=== PATIENT | male | born 1945 ===

== ENCOUNTER 2016-09-23 02:31 | Emergency (ER) | payer SELFPAY ==
--- NOTE | 2016-09-23 03:25 | C.PDOC ---
History Of Present Illness 71 y/o male presents to ED with c/o left sided frontal headache associated with left eye pain, redness, itching and tearing for 3 days. Patient also reports associated photophobia. Patient also complains of nasal congestion. Denies fever , neck pain, nausea, vomiting, visual changes, extremity weakness or numbness, or other complaints. Patient notes he took OTC ibuprofen with no relief; also reports using old steroid eye drops with no relief. Time Seen by Provider: 09/23/16 02:56 Chief Complaint (Nursing): Headache History Per: Patient History/Exam Limitations: no limitations Onset/Duration Of Symptoms: Days Current Symptoms Are (Timing): Still Present Quality: "Pain" Preceeding Symptoms: None Associated Symptoms: Photophobia. denies: Nausea, Vomiting Recent travel outside of the [place]: No Past Medical History Reviewed: Historical Data, Nursing Documentation, Vital Signs Vital Signs: Last Vital Signs Temp 98.1 F 09/23/16 04:07 Pulse 73 09/23/16 04:07 Resp 14 09/23/16 04:07 BP 131/85 09/23/16 04:07 Pulse Ox 97 09/23/16 04:07 - Medical History PMH: Arthritis, Asthma, CAD, Depression, Diabetes, Gastrointestinal Ulcer, HTN, Hyperlipidemia, Seizures Family History: States: Unknown Family Hx - Social History Hx Tobacco Use: No Hx Alcohol Use: No Hx Substance Use: No - Immunization History Hx Tetanus Toxoid Vaccination: Yes Hx Influenza Vaccination: No Hx Pneumococcal Vaccination: Yes Review Of Systems Except As Marked, All Systems Reviewed And Found Negative. Constitutional: Negative for: Fever, Chills Eyes: Positive for: Pain (left), Redness (left). Negative for: Vision Change ENT: Positive for: Nose Congestion. Negative for: Throat Pain Cardiovascular: Negative for: Chest Pain Respiratory: Negative for: Cough, Shortness of Breath Gastrointestinal: Negative for: Nausea, Vomiting Skin: Negative for: Rash Neurological: Positive for: Headache. Negative for: Weakness, Numbness, Dizziness Physical Exam - Physical Exam Appears: Non-toxic, No Acute Distress Skin: Warm, Dry Head: Atraumatic, Normacephalic, Tenderness (frontal sinus tenderness L > R ) Eye(s): bilateral: PERRL, EOMI, left: Other (left conjunctival injection greater to nasal area, mild crusting at lids ) Ear(s): Bilateral: Normal Nose: Other (enlarged nasal turbinates with mucous ) Oral Mucosa: Moist Neck: Normal, No Midline Cervical Tenderness, No Paracervical Tenderness, Supple Chest: Symmetrical Cardiovascular: Rhythm Regular Respiratory: Normal Breath Sounds, No Rales, No Rhonchi, No Wheezing Back: Normal Inspection Extremity: Normal ROM, Capillary Refill (< 2 sec. ) Neurological/Psych: Oriented x3, Normal Speech, Normal Cognition, Normal Cranial Nerves, Normal Motor, Normal Sensation, Normal Reflexes Gait: Steady ED Course And Treatment O2 Sat by Pulse Oximetry: 97 (RA) Pulse Ox Interpretation: Normal - CT Scan/US CT Head Other Rad Studies (CT/US): Read By Radiologist, Radiology Report Reviewed CT/US Interpretation: FINDINGS: Brain: No significant white matter disease. Age -related cerebral cortical volume loss. No. hemorrhage. No edema. Ventricles: Unremarkable. No ventriculomegaly. Bones/joints: A nonacute right nasal bone fracture. No acute fracture. Soft tissues: Unremarkable. Sinuses: Unremarkable as visualized. No acute sinusitis. Mastoid air cells: Unremarkable as visualized. No mastoid effusion. IMPRESSION: No acute intracranial findings. Progress Note: Treated with Ultram. Head CT ordered and reviewed. CT scan negative for acute intracranial abnormality. Reevaluation Time: 05:17 Reassessment Condition: Improved (Pt reports improved pain after IM toradol. CT head results d/w pt. Pt will be referred to Ophthalmology in AM- advised to call for appointment) Disposition - Disposition Referrals: Casey Edmondson MD [Staff Provider] - Disposition: HOME/ ROUTINE Disposition Time: 05:13 Condition: STABLE Additional Instructions: Take meds and use drops as directed Follow up with PMD Return to ER if worse Prescriptions: Ibuprofen [Motrin] 600 mg PO Q6H #30 tab Dexamethasone/Tobramycin [Tobradex 0.1%-0.3% 2.5 Ml] 1 drop OP TID #1 bottle Cetirizine HCl [Zyrtec] 10 mg PO DAILY #20 capsule - Clinical Impression Clinical Impression: Headache, Pain in eye - PA / TELEVISION REPAIRMAN / Resident Statement MD/DO has reviewed & agrees with the documentation as recorded. - Scribe Statement The provider has reviewed the documentation as recorded by the Edward Hilton Provider Scribe Attestation: All medical record entries made by the Scribe were at my direction and personally dictated by me. I have reviewed the chart and agree that the record accurately reflects my personal performance of the history, physical exam, medical decision making, and the department course for this patient. I have also personally directed, reviewed, and agree with the discharge instructions and disposition.
[2016-09-23 05:48] VITALS: BP 123/81; PULSE 64; RESP 21; TEMP 98; O2SAT 98
--- NOTE | 2016-09-23 07:52 | CT ---
PROCEDURE: CT HEAD WITHOUT CONTRAST. HISTORY: headache COMPARISON: 10/03/2014 TECHNIQUE: Axial computed tomography images were obtained through the head/brain without intravenous contrast. Radiation dose: Total exam DLP = 897 mGy-cm. This CT exam was performed using one or more of the following dose reduction techniques: Automated exposure control, adjustment of the mA and/or kV according to patient size, and/or use of iterative reconstruction technique. FINDINGS: HEMORRHAGE: No intracranial hemorrhage. BRAIN: No mass effect or edema. Scattered focal lucencies in the subcortical and periventricular white matter suggestive for chronic microvascular ischemic change. VENTRICLES: Unremarkable. No hydrocephalus. CALVARIUM: Right nasal bone fracture. PARANASAL SINUSES: Unremarkable as visualized. No significant inflammatory changes. MASTOID AIR CELLS: Unremarkable as visualized. No inflammatory changes. OTHER FINDINGS: None. IMPRESSION: Chronic microvascular ischemic change. Right nasal bone fracture. Likely chronic. Clinical correlation. If focal neurologic deficit or headache persists, consider further evaluation with MRI. These findings were preliminarily reported at 3:46 a.m. on 09/23/[address] Lady Nicholas from [facility].
== END 2016-09-23 05:49 | disposition home or self-care (01) ==
LOC: C.ER 02:31
DX: R51 Headache (principal); H57.12 Ocular pain, left eye
CPT/HCPCS: 70450; 96372; 99285; J1885

== ENCOUNTER 2017-11-17 01:35 | Emergency (ER) | payer SELFPAY ==
--- NOTE | 2017-11-17 01:54 | C.PDOC ---
History Of Present Illness 72 year old male presents to the ED for evaluation of right side chest wall pain. Patient states he fell and landed on a railing injuring his ribs associated with pain on deep inspirations. Patient is speaking in complete sentences, remembers the event. Patient denies LOC, headache, head injury, blurry vision, nausea, vomit. Time Seen by Provider: 11/17/17 01:54 Chief Complaint (Nursing): Chest Pain History Per: Patient History/Exam Limitations: no limitations Onset/Duration Of Symptoms: Days Current Symptoms Are (Timing): Still Present Quality: "Pain" Modifying Factors: None Exacerbating Factors: Deep Breathing Recent travel outside of the [place]: No Additional History Per: Patient Past Medical History Reviewed: Historical Data, Nursing Documentation, Vital Signs Vital Signs: Last Vital Signs Temp 97.7 F 11/17/17 04:30 Pulse 62 11/17/17 04:30 Resp 18 11/17/17 04:30 BP 100/65 11/17/17 04:30 Pulse Ox 96 11/17/17 04:30 - Medical History PMH: Arthritis, Asthma, CAD, Depression, Diabetes, Gastrointestinal Ulcer, HTN, Hyperlipidemia, Seizures Surgical History: No Surg Hx Family History: States: Unknown Family Hx - Social History Hx Tobacco Use: No Hx Alcohol Use: No Hx Substance Use: No - Immunization History Hx Tetanus Toxoid Vaccination: Yes Hx Influenza Vaccination: No Hx Pneumococcal Vaccination: Yes Review Of Systems Constitutional: Negative for: Fever, Chills Cardiovascular: Positive for: Chest Pain. Negative for: Palpitations Respiratory: Negative for: Shortness of Breath Gastrointestinal: Negative for: Nausea, Vomiting Musculoskeletal: Negative for: Back Pain Skin: Negative for: Rash Neurological: Negative for: Weakness, Numbness Physical Exam - Physical Exam Appears: Non-toxic, No Acute Distress Skin: Warm, Dry Head: Normacephalic Eye(s): bilateral: Normal Inspection Oral Mucosa: Moist Neck: Supple Chest: Symmetrical, Tenderness (right sided on palpation. no crepitus), No Ecchymosis (no evidence) Cardiovascular: Rhythm Regular Respiratory: No Rales, No Rhonchi, No Wheezing Gastrointestinal/Abdominal: Soft, No Tenderness, No Guarding, No Rebound Back: Normal Inspection Extremity: No Tenderness, No Swelling Extremity: Bilateral: Atraumatic, Normal Color And Temperature, Normal ROM Neurological/Psych: Oriented x3, Normal Speech Gait: Steady ED Course And Treatment - Laboratory Results Result Diagrams: 11/17/17 02:18 11/17/17 02:18 O2 Sat by Pulse Oximetry: 96 (ON RA) Pulse Ox Interpretation: Normal - CT Scan/US CT chest Other Rad Studies (CT/US): Read By Radiologist, Radiology Report Reviewed CT/US Interpretation: FINDINGS: Lungs: Infiltrate in posterior lungs. Pleural space: Unremarkable. No pneumothorax. No significant effusion. Heart: Unremarkable. No cardiomegaly. No significant pericardial effusion. Bones/ joints: Right anterior fifth and sixth rib fractures. No dislocation. Soft tissues: Unremarkable. Vasculature: Unremarkable. No thoracic aortic aneurysm. Lymph nodes: Unremarkable. No enlarged lymph nodes. IMPRESSION: 1. Infiltrate in posterior lungs. 2. Right anterior fifth and sixth rib fractures. Thank you for allowing us to participate in the care of your patient. Dictated and Authenticated by: Naresh Del Rosario MD. 11/17/2017 3:47 AM Eastern Time ([place] & [place]) Progress Note: Plan: - CT chest. - Labs. - CXR. - Morphine 4 mg IVP. - Zofran 4mg IVP. - UA Reevaluation Time: 04:35 Reassessment Condition: Improved Disposition Counseled Patient/Family Regarding: Studies Performed, Diagnosis, Need For Followup, Rx Given - Disposition Referrals: [facility] [Outside] [facility] [Outside] Disposition: HOME/ ROUTINE Disposition Time: 01:54 Condition: FAIR Prescriptions: Albuterol HFA [Ventolin HFA 90 mcg/actuation (8 g)] 2 puff IH [id number] #1 puff Azithromycin [Zithromax Tri-Juliocesar] 500 mg PO DAILY #3 tablet Polyethylene Glycol 3350 [Miralax] 17 gm PO DAILY #270 ml traMADol [Ultram] 50 mg PO TID PRN #15 tab PRN Reason: Pain, Severe (8-10) Instructions: Rib Fracture (DC) Forms: [employer] (Kinyarwanda) - Clinical Impression Clinical Impression: Fall, Fracture, ribs - Scribe Statement The provider has reviewed the documentation as recorded by the Scribe Nate García All medical record entries made by the Scribe were at my direction and personally dictated by me. I have reviewed the chart and agree that the record accurately reflects my personal performance of the history, physical exam, medical decision making, and the department course for this patient. I have also personally directed, reviewed, and agree with the discharge instructions and disposition.
[2017-11-17] MEDS ORDERED: Morphine 4 MG/ML VIAL IV STA (02:08)
[2017-11-17] MEDS ORDERED: Morphine 4 MG/ML VIAL ONE ×2 (02:19→03:26)
[2017-11-17 02:22] LABS: BASO # 0.1 K/uL (0.0-0.2); BASO % 1.3 % (0.0-2.0); EOS # 0.6 K/uL (0.0-0.7); EOS % 8.7 % (0.0-4.0); HEMOGLOBIN 12.5 g/dL (12.0-18.0); LYMPH # 2.8 K/uL (1.0-4.3); LYMPH % 40.6 % (20.0-40.0); MEAN CELL VOLUME 88.4 fL (80.0-94.0); MEAN CORPUSCULAR HEMOGLOBIN 30.9 pg (27.0-31.0); MEAN PLATELET VOLUME 7.3 fL (7.2-11.7); MONO # 0.7 K/uL (0.0-0.8); MONO % 9.5 % (0.0-10.0); NEUT # 2.7 K/uL (1.8-7.0); NEUT % 39.9 % (50.0-75.0); RBC 4.04 Mil/uL (4.40-5.90); RED CELL DISTRIBUTION WIDTH 13.1 % (11.5-14.5); WHITE BLOOD COUNT 6.8 K/uL (4.8-10.8)
[2017-11-17 02:37] LABS: ALB/GLOB RATIO 1.7 (1.0-2.1); ALBUMIN 4.1 g/dL (3.5-5.0); ALT/SGPT 40 U/L (21-72); AST/SGOT 30 U/L (17-59); BLOOD UREA NITROGEN 13 mg/dL (9-20); CALCIUM 7.8 mg/dl (8.6-10.4); GFR AFRICAN-AMERICAN > 60; GFR NON-AFRICAN AMERICAN > 60
[2017-11-17 05:57] VITALS: BP 111/77; PULSE 67; RESP 20; TEMP 97; O2SAT 97
--- NOTE | 2017-11-17 09:04 | CT ---
CT chest History: Follow-up. Right rib pain. Comparison: None available. Technique: Axial computed tomographic images of the chest were performed without intravenous contrast. Subsequently, sagittal and coronal reformatted images were obtained. This CT exam was performed using one or more of the following dose reduction techniques: Automated exposure control, adjustment of the mA and/or kV according to patient size, and/or use of iterative reconstruction technique. Findings: Fracture deformities of the right anterior 5th and 6th ribs. Right lung: Apical pleural thickening. 6 millimeter nodular focus noted within the inferior aspect of the right upper lobe on series 3, image 44, near the fissure. Consolidative changes noted at the posterior aspect of the right lower lobe which may represent infiltrate and or atelectasis. Left lung: Apical pleural thickening. Nodular consolidative changes at the inferior aspect of the left upper lobe near the lingula as well as the posterior left lower lobe which may represent infiltrate or atelectasis. Clinical correlation. Trachea thru central airways are patent. No significant axillary adenopathy. Heterogeneity of the thyroid. Question low-attenuation foci in the right thyroid lobe measuring 6.8 millimeters. This may be better evaluated with thyroid ultrasound. Calcification at the aortic knob. Coronary calcifications. No pleural or pericardial effusion. Fatty infiltration of the liver. Impression: 1. Right anterior 5th and 6th rib fractures. 2. 6 millimeter nodular focus noted within the inferior aspect of the right upper lobe of the lung on series 3, image 44, near the fissure. Consolidative changes noted at the posterior aspect of the right lower lobe which may represent infiltrate and or atelectasis. 3. Nodular consolidative changes at the inferior aspect of the left upper lobe of the lung near the lingula as well as the posterior left lower lobe which may represent infiltrate or atelectasis. Clinical correlation. Additional findings as above. These findings were preliminarily reported at 3:47 a.m. on 11/17/[address] Naresh Del Rosario from [facility].
== END 2017-11-17 06:01 | disposition home or self-care (01) ==
LOC: C.ER 01:35
DX: S22.41XA Multiple fractures of ribs, right side, initial encounter for closed fracture (principal); W19.XXXA Unspecified fall, initial encounter
CPT/HCPCS: 71250; 80053; 85025; 96374; 96375; 96376; 99285; J2270; J2405

== ENCOUNTER 2018-06-04 04:32 | Emergency (ER) | payer MEDICARE, OTHER ==
[2018-06-04] MEDS ORDERED: Sodium Chloride 0.9% 1,000 ML IV ONE (05:04)
--- NOTE | 2018-06-04 05:05 | C.PDOC ---
History Of Present Illness 72 year old male presents to the ER with a complaint of chest discomfort for the past few days associated with an episode of vomiting yesterday. Patient states he lives alone and nobody takes care of him. Denies cough. Chief Complaint (Nursing): Chest Pain History Per: Patient History/Exam Limitations: no limitations Onset/Duration Of Symptoms: Days Current Symptoms Are (Timing): Still Present Modifying Factors: None Exacerbating Factors: None Alleviating Factors: None Recent travel outside of the [place]: No Past Medical History Reviewed: Historical Data, Nursing Documentation, Vital Signs Vital Signs: Last Vital Signs Temp 97.8 F 06/04/18 04:51 Pulse 68 06/04/18 04:51 Resp 16 06/04/18 04:51 BP 116/72 06/04/18 04:51 Pulse Ox 97 06/04/18 04:51 - Medical History PMH: Arthritis, Asthma, CAD, Depression, Gastrointestinal Ulcer, Hyperlipidemia Denies: Diabetes, Hepatitis, HIV, HTN, Seizures, Sexually Transmitted Disease Family History: States: Unknown Family Hx - Social History Hx Tobacco Use: No Hx Alcohol Use: No Hx Substance Use: No - Immunization History Hx Tetanus Toxoid Vaccination: Yes Hx Influenza Vaccination: No Hx Pneumococcal Vaccination: Yes Review Of Systems Constitutional: Negative for: Fever, Chills Cardiovascular: Positive for: Chest Pain. Negative for: Palpitations Respiratory: Negative for: Cough, Shortness of Breath Gastrointestinal: Positive for: Vomiting. Negative for: Nausea Neurological: Negative for: Weakness, Numbness Physical Exam - Physical Exam Appears: Non-toxic, No Acute Distress, Other (Awake, alert, conscious) Skin: Normal Color, Warm, Dry Head: Atraumatic, Normacephalic Eye(s): bilateral: Normal Inspection Oral Mucosa: Moist Neck: Normal, Supple Chest: Symmetrical, No Tenderness Cardiovascular: Rhythm Regular Respiratory: Normal Breath Sounds, No Rales, No Rhonchi, No Wheezing Gastrointestinal/Abdominal: Soft, No Tenderness Extremity: Normal ROM (x4) Neurological/Psych: Oriented x3, Normal Speech ED Course And Treatment - Laboratory Results Result Diagrams: 06/04/18 05:50 06/04/18 05:50 ECG: Interpreted By Me, Viewed By Me ECG Rhythm: Sinus Rhythm ECG Interpretation: Normal, No Acute Changes Interpretation Of ECG: NSR, normal tracings. Rate From EC O2 Sat by Pulse Oximetry: 97 (Room air) Pulse Ox Interpretation: Normal - Radiology CXR: Interpreted by Me, Viewed By Me CXR Interpretation: Yes: No Acute Disease, Other (normal chest film). No: Infiltrates Progress Note: EKG, blood work, and CXR ordered. IV fluids administered. Disposition Counseled Patient/Family Regarding: Diagnosis - Disposition Referrals: [facility] [Outside] Disposition: HOME/ ROUTINE Disposition Time: 06:52 Condition: STABLE Prescriptions: Naproxen 375 mg PO TIDPC #20 tablet Forms: [employer] (Kiswahili) - POA Present On Arrival: None - Clinical Impression Clinical Impression: Chest discomfort - Scribe Statement The provider has reviewed the documentation as recorded by the Scribe Casey Antonio All medical record entries made by the Scribe were at my direction and personally dictated by me. I have reviewed the chart and agree that the record accurately reflects my personal performance of the history, physical exam, medical decision making, and the department course for this patient. I have also personally directed, reviewed, and agree with the discharge instructions and disposition.
[2018-06-04 05:57] LABS: BASO # 0.1 K/uL (0.0-0.2); BASO % 0.9 % (0.0-2.0); EOS # 0.2 K/uL (0.0-0.7); EOS % 2.4 % (0.0-4.0); HEMOGLOBIN 13.5 g/dL (12.0-18.0); LYMPH # 2.7 K/uL (1.0-4.3); LYMPH % 28.8 % (20.0-40.0); MEAN CELL VOLUME 89.1 fL (80.0-94.0); MEAN CORPUSCULAR HEMOGLOBIN 30.2 pg (27.0-31.0); MEAN CORPUSCULAR HGB CONC 33.9 g/dL (33.0-37.0); MEAN PLATELET VOLUME 7.3 fL (7.2-11.7); MONO # 0.9 K/uL (0.0-0.8); NEUT # 5.5 K/uL (1.8-7.0); NEUT % 57.9 % (50.0-75.0); RBC 4.48 Mil/uL (4.40-5.90); RED CELL DISTRIBUTION WIDTH 13.2 % (11.5-14.5); WHITE BLOOD COUNT 9.4 K/uL (4.8-10.8)
[2018-06-04 06:15] LABS: ALB/GLOB RATIO 1.3 (1.0-2.1); ALT/SGPT 24 U/L (21-72); AST/SGOT 19 U/L (17-59); BLOOD UREA NITROGEN 7 mg/dL (9-20); CALCIUM 8.5 mg/dl (8.6-10.4); GFR NON-AFRICAN AMERICAN > 60
[2018-06-04] MEDS ORDERED: Naproxen 275 mg Tab PO STA (06:51)
[2018-06-04] MEDS ORDERED: Naproxen 275 mg Tab PO ONE (06:53)
[2018-06-04 07:02] VITALS: BP 102/68; PULSE 80; RESP 14; TEMP 98.3; O2SAT 99
--- NOTE | 2018-06-04 08:28 | RAD ---
Date of service: 06/04/2018 HISTORY: chest pain COMPARISON: 07/03/2016 chest x-ray. CT chest report November 17 2017 TECHNIQUE: Chest PA and lateral FINDINGS: LUNGS: Improved inspiration since prior exam. No consolidation or pulmonary venous congestion currently noted. PLEURA: No significant pleural effusion identified. No pneumothorax apparent. Trace biapical pleural thickening-similar CARDIOVASCULAR: There is absence of aortic atherosclerotic calcification on x-ray. Normal cardiac size. No significant appearing pulmonary venous congestion. OSSEOUS STRUCTURES: Prior CT report referenced anterior rib fracture deformities-these are not appreciated on chest x-ray. Thoracic spondylosis. Mild cervical spondylosis. VISUALIZED UPPER ABDOMEN: Normal. OTHER FINDINGS: None. IMPRESSION: No interval pathology noted. Prior pulmonary venous congestion and other pathology is appear resolved/cleared. Other findings as above.
[2018-06-04] MEDS ORDERED: Naproxen 275 mg Tab PO SCH (10:00)
--- NOTE | 2018-06-04 14:50 | CARD ---
APPROVED REPORT Date of service: 06/04/2018 EKG Measurement Heart [id number] <Conclusion> Normal sinus rhythm Normal ECG
== END 2018-06-04 07:02 | disposition home or self-care (01) ==
LOC: C.ER 04:32
DX: R07.89 Other chest pain (principal); E78.5 Hyperlipidemia, unspecified; I25.10 Atherosclerotic heart disease of native coronary artery without angina pectoris
CPT/HCPCS: 71046; 80053; 84484; 85025; 85378; 93005; 99284; J7030

== ENCOUNTER 2018-07-25 02:29 | Emergency (ER) | payer OTHER ==
[2018-07-25] MEDS ORDERED: Sodium Chloride 0.9% 1,000 ML IV ONE (03:30)
--- NOTE | 2018-07-25 03:30 | C.PDOC ---
History Of Present Illness 72 year old male presents to the ED c/o sharp stabbing mid epigastric abdominal pain. Patient reports his pain radiates towards his testicles associated with some nausea. Patient rates his pain at 7/10, states he feels like a ball is stuck in his abdomen. Patient denies fever, chills, vomit, diarrhea, dysuria, hematuria, injury, fall, trauma. Time Seen by Provider: 07/25/18 03:30 Chief Complaint (Nursing): Abdominal Pain History Per: Patient History/Exam Limitations: no limitations Onset/Duration Of Symptoms: Days Current Symptoms Are (Timing): Still Present Severity: Moderate Pain Scale Rating Of: 7 Location Of Pain/Discomfort: Epigastric Radiation Of Pain To:: Other Quality Of Discomfort: Sharp, Stabbing Associated Symptoms: Nausea. denies: Vomiting, Diarrhea, Loss Of Appetite, Urinary Symptoms Recent travel outside of the [place]: No Additional History Per: Patient Past Medical History Reviewed: Historical Data, Nursing Documentation, Vital Signs Vital Signs: Last Vital Signs Temp 98.2 F 07/25/18 02:44 Pulse 73 07/25/18 02:44 Resp 18 07/25/18 02:44 BP 128/80 07/25/18 02:44 Pulse Ox 99 07/25/18 02:44 - Medical History PMH: Arthritis, Asthma, CAD, Depression, Gastrointestinal Ulcer, Hyperlipidemia Denies: Diabetes, Hepatitis, HIV, HTN, Seizures, Sexually Transmitted Disease Surgical History: No Surg Hx Family History: States: Unknown Family Hx - Social History Hx Tobacco Use: No Hx Alcohol Use: No Hx Substance Use: No - Immunization History Hx Tetanus Toxoid Vaccination: Yes Hx Influenza Vaccination: No Hx Pneumococcal Vaccination: Yes Review Of Systems Constitutional: Negative for: Fever, Chills Cardiovascular: Negative for: Chest Pain Respiratory: Negative for: Shortness of Breath Gastrointestinal: Positive for: Nausea, Abdominal Pain. Negative for: Vomiting Genitourinary: Positive for: Scrotal Pain. Negative for: Dysuria, Hematuria Skin: Negative for: Rash Neurological: Negative for: Weakness, Headache Physical Exam - Physical Exam Appears: Non-toxic, In Acute Distress Skin: Warm, Dry Head: Normacephalic Eye(s): bilateral: Normal Inspection Neck: Supple Chest: Symmetrical Cardiovascular: Rhythm Regular Respiratory: No Rales, No Rhonchi, No Wheezing Gastrointestinal/Abdominal: Soft, Tenderness (mid epigastric), No Guarding, No Rebound Back: No CVA Tenderness Male Genital: No Testicular Tenderness, No Testicular Swelling, Inguinal Ten derness, Inguinal Swelling (left inguinal hernia somewhat reducible ), No Circumcised Extremity: Normal ROM Extremity: Bilateral: Atraumatic, Normal Color And Temperature, Normal ROM Pulses: Left Dorsalis Pedis: Normal, Right Dorsalis Pedis: Normal Neurological/Psych: Oriented x3, Normal Speech, Normal Cognition Gait: Steady ED Course And Treatment - Laboratory Results Result Diagrams: 07/25/18 03:55 07/25/18 03:55 ECG: Interpreted By Me, Viewed By Me ECG Rhythm: Sinus Rhythm (69), Nonspecific Changes O2 Sat by Pulse Oximetry: 99 (ON RA) Pulse Ox Interpretation: Normal - CT Scan/US CT abd/pelvis Other Rad Studies (CT/US): Read By Radiologist, Radiology Report Reviewed CT/US Interpretation: CT SCAN OF THE ABDOMEN AND PELVIS WITH CONTRAST. CLINICAL HISTORY: Abdominal pain. COMPARISON: 04/16/2016. TECHNIQUE: Multiple axial and coronal CT images were obtained through the abdomen and pelvis after administration of intravenous contrast material. COMMENTS: Bilateral basilar hypoventilatory pulmonary changes. Uncomplicated colonic diverticulosis. Moderate amount of fecal residue in the large bowels. Moderate partial small bowel obstruction. Transition zone in the left lower quadrant. No evidence of bowel perforation or pneumatosis intestinalis. Left inguinal hernia containing nonincarcerated segment of the sigmoid colon. Mild amount of free pelvic fluid. The liver is of uniform attenuation without mass or defect. There is no intra or extrahepatic biliary ductal dilatation. The spleen is normal. The gallbladder is within normal limits. The pancreas is of normal contour and attenuation characteristics. There is no evidence of adrenal mass. Both kidneys demonstrate prompt and equal nephrograms. The kidneys are normal in size, shape and configuration. There is no evidence of renal or ureteral mass. No renal or ureteral calculi are identified. There is no hydroureter or hydronephrosis. No evidence for appendicitis. There is no evidence of intrinsic or extrinsic bladder mass. Images of the lung bases show no evidence of pleural or parenchymal mass. There are no pleural effusions. The bony structures are free of lytic or blastic lesions. IMPRESSION: Bilateral basilar hypoventilatory pulmonary changes. Uncomplicated colonic diverticulosis. Moderate amount of fecal residue in the large bowels. Moderate partial small bowel obstruction. Transition zone in the left lower quadrant. No evidence of bowel perforation or pneumatosis intestinalis. Left inguinal hernia containing nonincarcerated segment of the sigmoid colon. Mild amount of free pelvic fluid. Thank you for your kind referral of this patient. . Electronically signed on Jul 25, 2018 5:43:19 AM EST by: Sammy Steel M.D., Certified by ABR, MSK, Neuroradiology Progress Note: Plan: - CT abd/pelvis. - EKG. - Labs. - Morphine 2 mg IVP. - Protonix 40 mg IVP. - IV fluids. - Zofran 4 mg IVP. - UA Reevaluation Time: 06:14 Reassessment Condition: Improved Disposition Counseled Patient/Family Regarding: Studies Performed, Diagnosis, Need For Followup, Rx Given - Disposition Referrals: [facility] [Outside] [facility] [Outside] Disposition: HOME/ ROUTINE Disposition Time: 03:30 Condition: FAIR Additional Instructions: Por favor regrese si los sntomas recurren. Prescriptions: Naproxen [Naprosyn] 1 tab PO BID PRN #25 tab PRN Reason: Pain Polyethylene Glycol 3350 [Miralax] 17 gm PO DAILY #270 ml Instructions: Acute Abdomen (Belly Pain), Adult (DC), Constipation, Adult (DC), Groin Hernia (DC) Forms: [employer] (Mohawk) Print Language: STATELESS - Clinical Impression Clinical Impression: Abdominal pain, Constipation, Inguinal hernia - Scribe Statement The provider has reviewed the documentation as recorded by the Scribe Nate García All medical record entries made by the Scribe were at my direction and personally dictated by me. I have reviewed the chart and agree that the record accurately reflects my personal performance of the history, physical exam, medical decision making, and the department course for this patient. I have also personally directed, reviewed, and agree with the discharge instructions and disposition.
[2018-07-25] MEDS ORDERED: Sodium Chloride 0.9% 1,000 ML ONE (03:40)
[2018-07-25 04:01] LABS: BASO # 0.1 K/uL (0.0-0.2); BASO % 0.5 % (0.0-2.0); EOS # 0.2 K/uL (0.0-0.7); EOS % 1.6 % (0.0-4.0); HEMOGLOBIN 13.9 g/dL (12.0-18.0); LYMPH # 1.4 K/uL (1.0-4.3); LYMPH % 14.6 % (20.0-40.0); MEAN CELL VOLUME 89.1 fL (80.0-94.0); MEAN CORPUSCULAR HEMOGLOBIN 30.3 pg (27.0-31.0); MEAN PLATELET VOLUME 7.4 fL (7.2-11.7); MONO # 0.6 K/uL (0.0-0.8); MONO % 6.3 % (0.0-10.0); NEUT # 7.7 K/uL (1.8-7.0); RBC 4.57 Mil/uL (4.40-5.90); RED CELL DISTRIBUTION WIDTH 14.1 % (11.5-14.5); URINE BILIRUBIN NEGATIVE (NEGATIVE); URINE BLOOD 2+ (NEGATIVE); URINE CLARITY Clear (Clear); URINE COLOR Yellow (YELLOW); URINE GLUCOSE (UA) NORMAL (Normal); URINE LEUKOCYTE ESTERASE NEG Leu/uL (Negative); URINE PROTEIN NEGATIVE (NEGATIVE); URINE UROBILINOGEN NORMAL mg/dL (0.2-1.0)
[2018-07-25 04:06] LABS: PROTHROMBIN TIME 11.1 SECONDS (9.7-12.2)
[2018-07-25 04:15] LABS: ALB/GLOB RATIO 1.5 (1.0-2.1); ALBUMIN 4.4 g/dL (3.5-5.0); ALT/SGPT 24 U/L (21-72); AST/SGOT 27 U/L (17-59); BLOOD UREA NITROGEN 9 mg/dL (9-20); CALCIUM 8.9 mg/dl (8.6-10.4); GFR NON-AFRICAN AMERICAN > 60; LIPASE 95 U/L (23-300)
[2018-07-25] MEDS ORDERED: Iodixanol 320 MG/ML 100 ML BOTTLE IV ONE (04:53)
[2018-07-25 06:30] VITALS: BP 116/75; PULSE 60; RESP 18; TEMP 97.8; O2SAT 97
--- NOTE | 2018-07-25 18:07 | CT ---
Date of service: 07/25/2018 PROCEDURE: CT Abdomen and Pelvis with contrast HISTORY: abd pain COMPARISON: 11/17/2017 TECHNIQUE: Contrast dose: 100 mL Visipaque 320 Radiation dose: Total exam DLP = 855.09 mGy-cm. This CT exam was performed using one or more of the following dose reduction techniques: Automated exposure control, adjustment of the mA and/or kV according to patient size, and/or use of iterative reconstruction technique. FINDINGS: LOWER THORAX: Bilateral lower lobe dependent atelectasis. LIVER: Unremarkable. No gross lesion or ductal dilatation. GALLBLADDER AND BILE DUCTS: Unremarkable. PANCREAS: Unremarkable. No gross lesion or ductal dilatation. SPLEEN: Unremarkable. ADRENALS: Unremarkable. No mass. KIDNEYS AND URETERS: Unremarkable. No hydronephrosis. No solid mass. VASCULATURE: Unremarkable. No aortic aneurysm. No aortic atherosclerotic calcification or mural plaque present. BOWEL: Mechanical small-bowel obstruction. Point of obstruction is not definitely identified. There are collapsed loops of distal ileum identified in the right abdomen. There is mural enhancement and mural thickening of loops of what is likely jejunum in the left lower quadrant of the abdomen, along the anterior abdominal wall. Nonspecific. There is some stranding of the surrounding mesenteric fat. Possible regional enteritis. It appears likely that this accounts for the obstruction though it is not definitely demonstrated. There is a left inguinal hernia containing descending colon without evidence of obstruction at this point. APPENDIX: Normal appendix. PERITONEUM: Unremarkable. No free fluid. No free air. LYMPH NODES: Unremarkable. No enlarged lymph nodes. BLADDER: Unremarkable. REPRODUCTIVE: Normal prostate BONES: No acute fracture. OTHER FINDINGS: None. IMPRESSION: Mechanical small-bowel obstruction. Likely related to regional enteritis identified in the left lower quadrant of the abdomen along the anterior abdominal wall. Abnormal small bowel loops with mural thickening and enhancement are identified in the left lower quadrant of the abdomen. There is also a left inguinal hernia containing nonobstructed descending colon. No other significant abnormality is identified. The preliminary findings for this examination were reported by [facility] at 5:43 a.m. on 07/25/2018. There is concurrence of this report with the preliminary findings. Please note that the additional finding of regional enteritis was not described in the preliminary report of this examination.
--- NOTE | 2018-07-28 19:46 | CARD ---
APPROVED REPORT Date of service: 07/25/2018 EKG Measurement Heart [id number] <Conclusion> Normal sinus rhythm Normal ECG
== END 2018-07-25 06:42 | disposition home or self-care (01) ==
LOC: C.ER 02:29
DX: K40.90 Unilateral inguinal hernia, without obstruction or gangrene, not specified as recurrent (principal); K59.00 Constipation, unspecified; R10.9 Unspecified abdominal pain; I25.10 Atherosclerotic heart disease of native coronary artery without angina pectoris; E78.5 Hyperlipidemia, unspecified
CPT/HCPCS: 74177; 80053; 81001; 83690; 85025; 85610; 85730; 93005; 96361; 96374; 96375; 99285; C9113; J2270; J2405; J7030; Q9967

== ENCOUNTER 2018-07-29 16:05 | Inpatient (IN) | payer MEDICAID, OTHER ==
[2018-07-29 16:20] VITALS: BMI 25.0
[2018-07-29] MEDS ORDERED: Iohexol 240 (50 ml) PO STA (17:00)
[2018-07-29 17:22] LABS: BASO # 0.1 K/uL (0.0-0.2); BASO % 0.8 % (0.0-2.0); EOS # 0.9 K/uL (0.0-0.7); EOS % 10.8 % (0.0-4.0); HEMOGLOBIN 13.1 g/dL (12.0-18.0); LYMPH # 2.2 K/uL (1.0-4.3); LYMPH % 27.9 % (20.0-40.0); MEAN CELL VOLUME 88.8 fL (80.0-94.0); MEAN CORPUSCULAR HEMOGLOBIN 29.6 pg (27.0-31.0); MEAN CORPUSCULAR HGB CONC 33.3 g/dL (33.0-37.0); MEAN PLATELET VOLUME 7.1 fL (7.2-11.7); MONO # 0.7 K/uL (0.0-0.8); MONO % 8.7 % (0.0-10.0); NEUT # 4.1 K/uL (1.8-7.0); NEUT % 51.8 % (50.0-75.0); RBC 4.44 Mil/uL (4.40-5.90); WHITE BLOOD COUNT 7.9 K/uL (4.8-10.8)
[2018-07-29] MEDS ORDERED: Iohexol 240 (50 ml) ONE (17:39)
[2018-07-29 17:41] LABS: ALB/GLOB RATIO 1.4 (1.0-2.1); ALBUMIN 3.8 g/dL (3.5-5.0); ALT/SGPT 19 U/L (21-72); AST/SGOT 20 U/L (17-59); BLOOD UREA NITROGEN 8 mg/dL (9-20); CALCIUM 8.3 mg/dl (8.6-10.4); GFR NON-AFRICAN AMERICAN > 60; LIPASE 106 U/L (23-300)
[2018-07-29 17:48] LABS: URINE BILIRUBIN NEGATIVE (NEGATIVE); URINE BLOOD 1+ (NEGATIVE); URINE CLARITY Clear (Clear); URINE COLOR Straw (YELLOW); URINE GLUCOSE (UA) NORMAL (Normal); URINE LEUKOCYTE ESTERASE NEG Leu/uL (Negative); URINE PROTEIN NEGATIVE (NEGATIVE); URINE UROBILINOGEN NORMAL mg/dL (0.2-1.0)
--- NOTE | 2018-07-29 17:53 | C.PDOC ---
History Of Present Illness 72 y/o male presents to the ER complaining of sudden onset of sharp stabbing epigastric and upper abdominal pain which began 1 hour [employer]. Patient states he had associated nausea and he vomited profusely. Patient reports that the pain somewhat subsided after he vomited. He notes that he was evaluated for similar symptoms in [facility] last week. At the time, he had negative labs and a CT scan. The CT Scan showed left sided partially incarcerated inguinal hernia, moderate partial bowel obstruction, and significant amount of colonic stool. He was prescribed Miralax, he has been taking the medication in the morning on a daily basis.Denies having fever,chills, CP,SOB, dysuria, and hematuria. Time Seen by Provider: 07/29/18 16:46 Chief Complaint (Nursing): Abdominal Pain History Per: Patient History/Exam Limitations: no limitations Onset/Duration Of Symptoms: Hrs Current Symptoms Are (Timing): Still Present Severity: Moderate Past Medical History Reviewed: Historical Data, Nursing Documentation, Vital Signs Vital Signs: Last Vital Signs Temp 97.8 F 07/29/18 16:20 Pulse 74 07/29/18 16:20 Resp 18 07/29/18 16:20 BP 125/80 07/29/18 16:20 Pulse Ox 97 07/29/18 16:20 - Medical History PMH: Arthritis, Asthma, CAD, Depression, Gastrointestinal Ulcer, Hyperlipidemia Denies: Diabetes, Hepatitis, HIV, HTN, Seizures, Sexually Transmitted Disease Other Surgeries: Hx of surgeries Family History: States: No Known Family Hx - Social History Hx Tobacco Use: No Hx Alcohol Use: No Hx Substance Use: No - Immunization History Hx Tetanus Toxoid Vaccination: Yes Hx Influenza Vaccination: No Hx Pneumococcal Vaccination: Yes Review Of Systems Constitutional: Negative for: Fever, Chills Cardiovascular: Negative for: Chest Pain Respiratory: Negative for: Shortness of Breath Gastrointestinal: Positive for: Nausea, Vomiting, Abdominal Pain. Negative for: Diarrhea Genitourinary: Negative for: Dysuria, Hematuria Physical Exam - Physical Exam Appears: Non-toxic, No Acute Distress Skin: Normal Color, Warm, Dry Head: Atraumatic, Normacephalic Eye(s): bilateral: Normal Inspection Nose: Normal Oral Mucosa: Moist Neck: Supple Chest: Symmetrical Cardiovascular: Rhythm Regular Respiratory: Normal Breath Sounds, No Rales, No Rhonchi, No Wheezing Gastrointestinal/Abdominal: Soft, Tenderness (epigastric and periumbilical tenderness), No Guarding, No Rebound Neurological/Psych: Oriented x3, Normal Speech ED Course And Treatment - Laboratory Results Result Diagrams: 07/29/18 17:18 07/29/18 17:18 Lab Results: Total Bilirubin 0.3 mg/dL (0.2-1.3) 07/29/18 17:18 AST 20 U/L (17-59) 07/29/18 17:18 ALT 19 U/L (21-72) L D 07/29/18 17:18 Alkaline Phosphatase 74 U/L (38-126) 07/29/18 17:18 Total Protein 6.6 g/dL (6.3-8.3) 07/29/18 17:18 Albumin 3.8 g/dL (3.5-5.0) 07/29/18 17:18 Globulin 2.8 gm/dL (2.2-3.9) 07/29/18 17:18 Albumin/Globulin Ratio 1.4 (1.0-2.1) 07/29/18 17:18 Lipase 106 U/L (23-300) 07/29/18 17:18 Lab Interpretation: No Acute Changes O2 Sat by Pulse Oximetry: 97 (RA) Pulse Ox Interpretation: Normal - CT Scan/US CT ABD/PEL Other Rad Studies (CT/US): Read By Radiologist, Radiology Report Reviewed CT/US Interpretation: EXAM: CT Abdomen and Pelvis with IV contrast. CLINICAL HISTORY: EJ UMBILICAL PAIN. TECHNIQUE: Axial computed tomography images of the abdomen and pelvis with intravenous contrast. 0.00 mGy-cm. CONTRAST:. With; OMNI 350 100MLS. COMPARISON: Previous study 07/25/2018. FINDINGS: LUNG BASES: The lung bases appear clear. No pleural effusions are seen. LIVER: Unremarkable. GALLBLADDER AND BILE DUCTS: The gallbladder appears within normal limits. No radioopaque gallstones are seen. No biliary ductal dilatation is evident. PANCREAS: Unremarkable. SPLEEN: Unremarkable. ADRENAL GLANDS: Unremarkable. KIDNEYS, URETERS, AND BLADDER: The kidneys appear within normal limits. There is no hydronephrosis or hydroureter. No urinary calculi are seen. STOMACH AND BOWEL: Unremarkable appearance of the stomach and bowel. There is some mildly distended loops of small bowel extending into the pelvis with a mild partial small bowel obstruction still suggested. There is a left inguinal her isaías appears incarcerated containing a loop of sigmoid colon. Mild diverticular changes present descending and sigmoid colon. APPENDIX: No evidence of acute appendicitis on CT examination. PERITONEUM: No free fluid. No free air. LYMPH NODES: No lymphadenopathy is evident. REPRODUCTIVE: Unremarkable as visualized. VASCULATURE: No evidence of abdominal aortic aneurysm. BONES: No aggressive appearing osseous lesion. No acute osseous pathology evident. IMPRESSION: Mild diverticular changes sigmoid and distal descending colon. Mild partial small bowel obstruction still suggested. Incarcerated left inguinal hernia containing loop of sigmoid colon. Continued clinical correlation advised. - Physician Consult Information Outcome Of Conversation: Case discussed with surgery and Dr Cardenas. Patient to be admitted for surgical treatment of incarcerated inguinal hernia. Medical Decision Making Medical Decision Making: Plan: --Labs --UA --CT- Abd & Pelv. --Morphine IV Disposition - Disposition Disposition: HOSPITALIZED Disposition Time: 22:36 Condition: STABLE - POA Present On Arrival: None - Clinical Impression Clinical Impression: Incarcerated left inguinal hernia, Partial small bowel obstruction - Scribe Statement The provider has reviewed the documentation as recorded by the Edward Flores Provider Attestation: All medical record entries made by the Shericeibe were at my direction and personally dictated by me. I have reviewed the chart and agree that the record accurately reflects my personal performance of the history, physical exam, medical decision making, and the department course for this patient. I have also personally directed, reviewed, and agree with the discharge instructions and disposition.
[2018-07-29] MEDS ORDERED: Iohexol 350mg/ml 100 ML ONE (18:33)
--- NOTE | 2018-07-29 22:58 | CP.PCM.CON ---
<Mauro Hernandez - Last Filed: 07/30/18 03:23> History of Present Illness - History of Present Illness History of Present Illness: PGY-1 Medicine Consult Note for Dr. Cardenas Patient is a 72 year old male with PMHx CAD, RI x2, HTN, hyperlipidemia, arthritis, bipolar disorder, asthma, arthritis who presents to ED with complaint of abdominal pain. Patient presented to ED one week prior with the same symptoms and was discharged home to follow up in clinic. CT at that time did show partial SBO and inguinal hernia. Patient did report having bloody stools last week, though states this has resolved. Denies bloody vomit, coffee grounds. He also states that for the past 1-2 months he has had dysuria with dark colored and foul-smelling urine. Denies fevers or chills. At the present, patient states the abdominal pain has improved and feels only like a fullness across his inferior abdomen. PMHx: RI x2, HTN, hyperlipidemia, arthritis, asthma, depression, Bipolar disorder, gastric ulcers Surgerical Hx: L meniscus, EGD 15 years ago Allergies: PCN Meds: Not currently taking meds for any of his chronic medical conditions, due to financial/insurance issues. Takes Miralax prescribed last week in ED. Takes alkaseltzer, tums occasionally. Social history: denies etoh, tobacco, or drug use. Currently lives in senior care PMD: None Review of Systems - Constitutional Constitutional: absent: Chills, Fever - EENT Eyes: absent: Blurred Vision, Photophobia Nose/Mouth/Throat: Nasal Congestion. absent: Nasal Discharge - Cardiovascular Cardiovascular: absent: Chest Pain, Edema, Leg Edema, Palpitations - Respiratory Respiratory: absent: Cough, Dyspnea - Gastrointestinal Gastrointestinal: Abdominal Pain, Constipation, Diarrhea Additional comments: States he is typically constipated, but now has been having diarrhea. - Genitourinary Genitourinary: Dysuria. absent: Flank Pain Additional comments: orange-colored, foul-smelling urine [id number] - Musculoskeletal Musculoskeletal: absent: Back Pain, Neck Pain - Neurological Neurological: absent: Confusion, Dizziness, Numbness - Psychiatric Psychiatric: absent: Anxiety, Depression - Hematologic/Lymphatic Hematologic: absent: Easy Bleeding, Easy Bruising Past Patient History - Infectious Disease Hx of Infectious Diseases: None - Past Social History Smoking Status: Never Smoked - CARDIAC Hx Hypertension: No - PULMONARY Hx Asthma: Yes - NEUROLOGICAL Hx Seizures: No - HEMATOLOGICAL/ONCOLOGICAL Hx Human Immunodeficiency Virus (HIV): No - MUSCULOSKELETAL/RHEUMATOLOGICAL Hx Arthritis: Yes - GASTROINTESTINAL Hx Gastroesophageal Reflux: Yes - GENITOURINARY/GYNECOLOGICAL Hx Sexually Transmitted Disorders: No - PSYCHIATRIC Hx Depression: Yes Hx Substance Use: No - SURGICAL HISTORY Hx Surgeries: Yes Hx Orthopedic Surgery: Yes (left knee 30 yrs. ago) - ANESTHESIA Hx Anesthesia: Yes Meds Allergies/Adverse Reactions: Allergies Allergy/AdvReac Type Severity Reaction Status Date / Time Penicillins Allergy RASH Verified 07/29/18 16:19 Physical Exam - Constitutional Appears: Non-toxic, No Acute Distress - Head Exam Head Exam: ATRAUMATIC, NORMOCEPHALIC - Eye Exam Eye Exam: EOMI, Normal appearance - ENT Exam ENT Exam: Mucous Membranes Moist - Respiratory Exam Respiratory Exam: Clear to Auscultation Bilateral, NORMAL BREATHING PATTERN. absent: Rhonchi, Wheezes - Cardiovascular Exam Cardiovascular Exam: REGULAR RHYTHM, +S1, +S2 - GI/Abdominal Exam GI & Abdominal Exam: Normal Bowel Sounds, Soft. absent: Tenderness Additional comments: Left inguinal hernia - Extremities Exam Extremities exam: Negative for: pedal edema, tenderness - Neurological Exam Neurological exam: Alert, CN II-XII Intact, Oriented x3 - Psychiatric Exam Psychiatric exam: Normal Affect, Normal Mood - Skin Skin Exam: Dry, Intact, Normal Color Results - Vital Signs Recent Vital Signs: Last Vital Signs Temp 97.8 F 07/29/18 16:20 Pulse 74 07/29/18 16:20 Resp 18 07/29/18 16:20 BP 125/80 07/29/18 16:20 Pulse Ox 97 07/29/18 22:37 - Labs Result Diagrams: 07/29/18 17:18 07/29/18 17:18 Labs: Laboratory Results - last 24 hr 07/29/18 07/29/18 07/29/18 17:18 17:18 17:32 WBC 7.9 RBC 4.44 Hgb 13.1 Hct 39.4 MCV 88.8 MCH 29.6 MCHC 33.3 RDW 14.0 Plt Count 272 MPV 7.1 L Neut % (Auto) 51.8 Lymph % (Auto) 27.9 [place] % (Auto) 8.7 Eos % (Auto) 10.8 H Baso % (Auto) 0.8 Neut # (Auto) 4.1 Lymph # (Auto) 2.2 [place] # (Auto) 0.7 Eos # (Auto) 0.9 H Baso # (Auto) 0.1 Sodium 139 Potassium 3.9 Chloride 103 Carbon Dioxide 28 Anion Gap 12 BUN 8 L Creatinine 0.8 Est GFR ( Amer) > 60 Est GFR (Non-Af Amer) > 60 Random Glucose 84 Calcium 8.3 L Total Bilirubin 0.3 AST 20 ALT 19 L D Alkaline Phosphatase 74 Total Protein 6.6 Albumin 3.8 Globulin 2.8 Albumin/Globulin Ratio 1.4 Lipase 106 Urine Color Straw Urine Clarity Clear Urine pH 7.0 Ur Specific [place] 1.003 Urine Protein Negative Urine Glucose (UA) Normal Urine Ketones Negative Urine Blood 1+ H Urine Nitrate Negative Urine Bilirubin Negative Urine Urobilinogen Normal Ur Leukocyte Esterase Neg Urine WBC (Auto) < 1 Urine RBC (Auto) < 1 Assessment & Plan - Assessment and Plan (Free Text) Assessment: Inguinal hernia/Medical clearance for inguinal hernia repair -CT SCAN OF THE ABDOMEN AND PELVIS WITH CONTRAST 07/25 IMPRESSION: Bilateral basilar hypoventilatory pulmonary changes. Uncomplicated colonic di verticulosis. Moderate amount of fecal residue in the large bowels. Moderate partial small bowel obstruction. Transition zone in the left lower quadrant. No evidence of bowel perforation or pneumatosis intestinalis. Left inguinal hernia containing nonincarcerated segment of the sigmoid colon. Mild amount of free pelvic fluid. -Repeat CT abd/pelvis - official read pending -Patient with history CAD with multiple RI in the past --Cardiology consult, Dr. Junior. F/u recs -EKG NSR, ST changes, normal EKG -A1c - f/u -Lipid panel - f/u -TSH - f/u -CXR - official read pending -Coags --INR 1.5 -UA shows no LE/WBC/bloo -Case discussed with hvac residential service technician grain operations manager. Will plan for repair of inguinal hernia pending medical/cardio clearance SBO -Per surgery team, no intervention at this time -Monitor clinically PPx -DVT: Heparin 5000 U SC Q8 Assessment and plan discussed with Dr. Theresa Hernandez, PGY-1 <Kirill Cardenas - Last Filed: 07/30/18 06:23> Meds - Medications Medications: Current Medications Heparin Sodium (Porcine) (Heparin) 5,000 units SC Q8 [facility] Lactated Ringer's (Lactated Ringer's) 1,000 mls @ 125 mls/hr IV .Q8H [facility] Last Admin: 07/30/18 00:57 Dose: 125 mls/hr Ondansetron HCl (Zofran Inj) 4 mg IVP Q4 PRN PRN Reason: Nausea/Vomiting Oxycodone/Acetaminophen (Percocet 5/325 Mg Tab) 1 tab PO Q4H PRN PRN Reason: Pain, moderate (4-7) Stop: 08/01/18 23:22 Results - Vital Signs Recent Vital Signs: Last Vital Signs Temp 97.5 F L 07/30/18 00:00 Pulse 69 07/30/18 00:00 Resp 20 07/30/18 00:25 BP 121/74 07/30/18 00:00 Pulse Ox 98 07/30/18 00:00 - Labs Result Diagrams: 07/29/18 17:18 07/29/18 17:18 Labs: Laboratory Results - last 24 hr 07/29/18 07/29/18 07/29/18 17:18 17:18 17:32 WBC 7.9 RBC 4.44 Hgb 13.1 Hct 39.4 MCV 88.8 MCH 29.6 MCHC 33.3 RDW 14.0 Plt Count 272 MPV 7.1 L Neut % (Auto) 51.8 Lymph % (Auto) 27.9 [place] % (Auto) 8.7 Eos % (Auto) 10.8 H Baso % (Auto) 0.8 Neut # (Auto) 4.1 Lymph # (Auto) 2.2 [place] # (Auto) 0.7 Eos # (Auto) 0.9 H Baso # (Auto) 0.1 PT INR Sodium 139 Potassium 3.9 Chloride 103 Carbon Dioxide 28 Anion Gap 12 BUN 8 L Creatinine 0.8 Est GFR ( Amer) > 60 Est GFR (Non-Af Amer) > 60 Random Glucose 84 Calcium 8.3 L Total Bilirubin 0.3 AST 20 ALT 19 L D Alkaline Phosphatase 74 Total Protein 6.6 Albumin 3.8 Globulin 2.8 Albumin/Globulin Ratio 1.4 Lipase 106 Urine Color Straw Urine Clarity Clear Urine pH 7.0 Ur Specific [place] 1.003 Urine Protein Negative Urine Glucose (UA) Normal Urine Ketones Negative Urine Blood 1+ H Urine Nitrate Negative Urine Bilirubin Negative Urine Urobilinogen Normal Ur Leukocyte Esterase Neg Urine WBC (Auto) < 1 Urine RBC (Auto) < 1 07/29/18 23:05 WBC RBC Hgb Hct MCV MCH MCHC RDW Plt Count MPV Neut % (Auto) Lymph % (Auto) [place] % (Auto) Eos % (Auto) Baso % (Auto) Neut # (Auto) Lymph # (Auto) [place] # (Auto) Eos # (Auto) Baso # (Auto) PT 16.6 H INR 1.5 Sodium Potassium Chloride Carbon Dioxide Anion Gap BUN Creatinine Est GFR ( Amer) Est GFR (Non-Af Amer) Random Glucose Calcium Total Bilirubin AST ALT Alkaline Phosphatase Total Protein Albumin Globulin Albumin/Globulin Ratio Lipase Urine Color Urine Clarity Urine pH Ur Specific [place] Urine Protein Urine Glucose (UA) Urine Ketones Urine Blood Urine Nitrate Urine Bilirubin Urine Urobilinogen Ur Leukocyte Esterase Urine WBC (Auto) Urine RBC (Auto) Assessment & Plan - Date & Time Date: 07/30/18 (I have seen and examined the patient. I agree with the findings and plan of care as documented by Dr. Hernandez. Patient with left inguinal hernia with SBO. History of RI. Surgery admitting. Will medically optimize. Check hemoglobin A1C and FLP. Monitor for acute changes.) Time: 06:21 Attending/Attestation - Attestation I have personally seen and examined this patient.: Yes I have fully participated in the care of the patient.: Yes I have reviewed all pertinent clinical information: Yes
--- NOTE | 2018-07-29 23:04 | CP.PCM.HP ---
History of Present Illness - History of Present Illness History of Present Illness: GENERAL SURGERY HISTORY AND PHYSICAL FOR DR. FERREIRA 72yo M with PMHx of HI x2, HTN, hyperlipidemia, arthritis, asthma, depression, Bipolar, homeless presents to the ED with abdominal pain that began around 2PM today. Pt states he vomited 2 times. He reports that he had a soft BM 1 hour ago and is currently taking Miralax. He is passing flatus. The pain states that he has had this similar pain 3 times before. Pt was seen in the ED on 07/25 for similar symptoms and was discharged home with Rx for miralax and naproxen. Of note, pt reports having large amount of bright red blood per rectum last week which has since resolved this week. Denies ever having a colonoscopy. Reports 20 pound weight loss which pt attributes to not eating much. PMHx: HI x2, HTN, hyperlipidemia, arthritis, asthma, depression, Bipolar Surgeries: L meniscus, EGD 15 years ago for ulcers Allergies: penicillin Meds: currently only taking Naproxen and Miralax as prescribed by ED earlier this week. Pt states unable to afford other medications Social history: denies etoh, tobacco use or illicit drugs. Pt lives in nursing home Present on Admission - Present on Admission Any Indicators Present on Admission: No Review of Systems - Review of Systems All systems: reviewed and no additional remarkable complaints except (as per H PI) Past Patient History - Infectious Disease Hx of Infectious Diseases: None - Past Social History Smoking Status: Never Smoked Alcohol: None Drugs: Denies Home Situation {Lives}: Homeless - CARDIAC Hx Heart Attack: Yes (x2) Hx Hypertension: No - PULMONARY Hx Asthma: Yes - NEUROLOGICAL Hx Seizures: No - HEMATOLOGICAL/ONCOLOGICAL Hx Human Immunodeficiency Virus (HIV): No - MUSCULOSKELETAL/RHEUMATOLOGICAL Hx Arthritis: Yes - GASTROINTESTINAL Hx Gastroesophageal Reflux: Yes - GENITOURINARY/GYNECOLOGICAL Hx Sexually Transmitted Disorders: No - PSYCHIATRIC Hx Depression: Yes Hx Substance Use: No - SURGICAL HISTORY Hx Surgeries: Yes Hx Orthopedic Surgery: Yes (left knee 30 yrs. ago) - ANESTHESIA Hx Anesthesia: Yes Meds Allergies/Adverse Reactions: Allergies Allergy/AdvReac Type Severity Reaction Status Date / Time Penicillins Allergy RASH Verified 07/29/18 16:19 Physical Exam - Constitutional Appears: Well, Non-toxic, No Acute Distress - Head Exam Head Exam: ATRAUMATIC, NORMAL INSPECTION - Eye Exam Eye Exam: EOMI, Normal appearance - Respiratory Exam Respiratory Exam: NORMAL BREATHING PATTERN. absent: Respiratory Distress - Cardiovascular Exam Cardiovascular Exam: +S1, +S2 - GI/Abdominal Exam GI & Abdominal Exam: Hernia (left inguinal hernia, soft, non tender), Soft. absent: Distended, Firm, Guarding, Rebound, Rigid, Tenderness - Extremities Exam Extremities exam: Positive for: normal inspection - Neurological Exam Neurological exam: Alert, CN II-XII Intact - Psychiatric Exam Psychiatric exam: Normal Affect, Normal Mood - Skin Skin Exam: Warm Results - Vital Signs Recent Vital Signs: Last Vital Signs Temp 97.8 F 07/29/18 16:20 Pulse 74 07/29/18 16:20 Resp 18 07/29/18 16:20 BP 125/80 07/29/18 16:20 Pulse Ox 97 07/29/18 22:37 - Labs Result Diagrams: 07/29/18 17:18 07/29/18 17:18 Labs: Laboratory Results - last 24 hr 07/29/18 07/29/18 07/29/18 17:18 17:18 17:32 WBC 7.9 RBC 4.44 Hgb 13.1 Hct 39.4 MCV 88.8 MCH 29.6 MCHC 33.3 RDW 14.0 Plt Count 272 MPV 7.1 L Neut % (Auto) 51.8 Lymph % (Auto) 27.9 [place] % (Auto) 8.7 Eos % (Auto) 10.8 H Baso % (Auto) 0.8 Neut # (Auto) 4.1 Lymph # (Auto) 2.2 [place] # (Auto) 0.7 Eos # (Auto) 0.9 H Baso # (Auto) 0.1 Sodium 139 Potassium 3.9 Chloride 103 Carbon Dioxide 28 Anion Gap 12 BUN 8 L Creatinine 0.8 Est GFR ( Amer) > 60 Est GFR (Non-Af Amer) > 60 Random Glucose 84 Calcium 8.3 L Total Bilirubin 0.3 AST 20 ALT 19 L D Alkaline Phosphatase 74 Total Protein 6.6 Albumin 3.8 Globulin 2.8 Albumin/Globulin Ratio 1.4 Lipase 106 Urine Color Straw Urine Clarity Clear Urine pH 7.0 Ur Specific [place] 1.003 Urine Protein Negative Urine Glucose (UA) Normal Urine Ketones Negative Urine Blood 1+ H Urine Nitrate Negative Urine Bilirubin Negative Urine Urobilinogen Normal Ur Leukocyte Esterase Neg Urine WBC (Auto) < 1 Urine RBC (Auto) < 1 Assessment & Plan - Assessment and Plan (Free Text) Assessment: 72yo M with PMHx of HI x2, HTN, hyperlipidemia, arthritis, asthma, depression, Bipolar, homeless who is found to have a partial SBO on imaging as well as i nguinal hernia - Afebrile, VSS - CT: mild partial SBO, incarcerated left inguinal hernia containing loop of sigmoid colon - Clinically not obstructed, pt having bowel function, no need for NG tube at this time - Plan for OR tomorrow for left inguinal hernia repair if cleared - Needs clearance prior to OR - NPO - IV fluids - EKG - Discussed plan with Dr. Home Martin PGY-4
[2018-07-29 23:13] LABS: INR 1.5; PROTHROMBIN TIME 16.6 SECONDS (9.7-12.2)
[2018-07-29] MEDS ORDERED: Oxycodone/Acetaminophen 5/325 mg Tab PO PRN (23:21)
[2018-07-30] MEDS: Lactated Ringer's 1,000 ML IV SCH ×4 (00:57→22:01)
[2018-07-30 07:58] LABS: HEMOGLOBIN 13.3 g/dL (12.0-18.0); MEAN CELL VOLUME 90.2 fL (80.0-94.0); MEAN CORPUSCULAR HEMOGLOBIN 30.3 pg (27.0-31.0); MEAN CORPUSCULAR HGB CONC 33.6 g/dL (33.0-37.0); MEAN PLATELET VOLUME 7.3 fL (7.2-11.7); RBC 4.38 Mil/uL (4.40-5.90); RED CELL DISTRIBUTION WIDTH 14.2 % (11.5-14.5); WHITE BLOOD COUNT 6.1 K/uL (4.8-10.8)
[2018-07-30 08:03] LABS: INR 1.1; PROTHROMBIN TIME 12.3 SECONDS (9.7-12.2)
[2018-07-30 08:15] LABS: BLOOD UREA NITROGEN 7 mg/dL (9-20); CALCIUM 8.3 mg/dl (8.6-10.4); GFR NON-AFRICAN AMERICAN > 60
--- NOTE | 2018-07-30 08:36 | CP.PCM.PN ---
Subjective - Date & Time of Evaluation Date of Evaluation: 07/30/18 Time of Evaluation: 06:50 - Subjective Subjective: Progress note for Dr. Bhat. Patient seen and examined at bedside. Patient states he feels much better since admission. Denies pain at this time. Denies current nausea, vomiting, fever, and chills. Reports 2 soft BMs yesterday. Reiterated approximately 30 lb weight loss (unintentional) in the past month. Objective - Vital Signs/Intake and Output Vital Signs (last 24 hours): Temp Pulse Resp BP Pulse Ox 97.5 F L 69 20 121/74 98 07/30/18 00:00 07/30/18 00:00 07/30/18 00:25 07/30/18 00:00 07/30/18 00:00 Intake and Output: 07/30/18 07/30/18 06:59 18:59 Intake Total 0 Output Total 1000 Balance -1000 - Medications Medications: Current Medications Heparin Sodium (Porcine) (Heparin) 5,000 units SC Q8 [facility] Last Admin: 07/30/18 07:24 Dose: Not Given Lactated Ringer's (Lactated Ringer's) 1,000 mls @ 125 mls/hr IV .Q8H [facility] Last Admin: 07/30/18 07:41 Dose: Not Given Influenza Virus Vaccine (Flucelvax Quad [id number] Syr) 60 mcg IM .ONCE ONE Stop: 08/01/18 10:01 Ondansetron HCl (Zofran Inj) 4 mg IVP Q4 PRN PRN Reason: Nausea/Vomiting Oxycodone/Acetaminophen (Percocet 5/325 Mg Tab) 1 tab PO Q4H PRN PRN Reason: Pain, moderate (4-7) Stop: 08/01/18 23:22 - Labs Labs: 07/30/18 07:50 07/30/18 07:50 PT 12.3 SECONDS (9.7-12.2) H 07/30/18 07:50 INR 1.1 07/30/18 07:50 APTT 35 SECONDS (21-34) H 07/30/18 07:50 - Constitutional Appears: Non-toxic, No Acute Distress - Head Exam Head Exam: ATRAUMATIC, NORMOCEPHALIC - Eye Exam Eye Exam: Normal appearance - ENT Exam ENT Exam: Mucous Membranes Moist - Respiratory Exam Respiratory Exam: NORMAL BREATHING PATTERN. absent: Respiratory Distress - GI/Abdominal Exam GI & Abdominal Exam: Soft. absent: Distended, Firm, Guarding, Rigid, Tenderness, Rebound Additional comments: left inguinal hernia, soft, non tender - Extremities Exam Extremities Exam: Full ROM - Neurological Exam Neurological Exam: Alert, Awake, Oriented x3 - Psychiatric Exam Psychiatric exam: Normal Affect, Normal Mood - Skin Skin Exam: Dry, Normal Color, Warm Assessment and Plan - Assessment and Plan (Free Text) Assessment: 72M with hx of rectal bleed and weight-loss, found to have a left inguinal her isaías Plan: - CT: mild partial SBO, incarcerated left inguinal hernia containing loop of sigmoid colon - Patient will need GI consult for workup of rectal bleed and unintended weight- loss, r/o cancer - Patient will need Cardiac consult for medical history - Patient transferred to medical service - Will continue to follow Discussed plan with Dr. Home Grider, PGY-1
--- NOTE | 2018-07-30 10:04 | CP.PCM.PCO ---
Physician Communication Note - Physician Communication Note Physician Communication Note: Please note admission transferred to Dr. High
--- NOTE | 2018-07-30 10:08 | RAD ---
Date of service: 07/29/2018 HISTORY: medical clearance COMPARISON: 06/26/2018 TECHNIQUE: Chest PA and lateral FINDINGS: LUNGS: No consolidation appreciated PLEURA: No significant pleural effusion identified. No pneumothorax apparent. Mild biapical pleural thickening similar appearing CARDIOVASCULAR: No aortic atherosclerotic calcification present. Normal cardiac size. No pulmonary vascular congestion. OSSEOUS STRUCTURES: Thoracic spondylosis. Bilateral shoulder arthrosis VISUALIZED UPPER ABDOMEN: Normal. OTHER FINDINGS: None. IMPRESSION: No interval pathology noted. Similar biapical pleural thickening. Osseous changes as above
--- NOTE | 2018-07-30 10:10 | CP.PCM.PN ---
<Reanna Rubio - Last Filed: 07/30/18 16:10> Subjective - Date & Time of Evaluation Date of Evaluation: 07/30/18 Time of Evaluation: 07:40 - Subjective Subjective: Patient examined at bedside. No acute overnight events. Patient reports improvement in abdominal pain, reports minimal lower abdominal discomfort. Patient reports 2 loose BMs yesterday morning, not dark/bloody; no BM since. He reports passing flatus. Patient clarifies history of 2 MIs, one in 2005 at [place], and 1 in 2010 at a hospital in [place]. He reports he has been following up with [place] pickling machine operator Dr. Suazo for several years following his first AR, but none recently. Pt also clarifies hematochezia last week likely 2/2 constipation requiring digital stimulation in order to defecate, no bleeding after constipation resolved with miralax prescribed by ED on prior visit. Patient clarifies weight loss due to decreased PO intake 2/2 homelessness, living in snf and inadequate access to food, as well as episodes of vomiting/diarrhea. Patient clarifies history of gastric and duodenal ulcers with [place] [facility] [place] Objective - Vital Signs/Intake and Output Vital Signs (last 24 hours): Temp Pulse Resp BP Pulse Ox 98.2 F 65 20 154/68 H 98 07/30/18 08:37 07/30/18 08:37 07/30/18 08:37 07/30/18 08:37 07/30/18 08:37 Intake and Output: 07/30/18 07/30/18 06:59 18:59 Intake Total 0 Output Total 1000 Balance -1000 - Medications Medications: Current Medications Lactated Ringer's (Lactated Ringer's) 1,000 mls @ 125 mls/hr IV .Q8H CÉSAR Last Admin: 07/30/18 07:41 Dose: Not Given Influenza Virus Vaccine (Flucelvax Quad [id number] Syr) 60 mcg IM .ONCE ONE Stop: 08/01/18 10:01 Ondansetron HCl (Zofran Inj) 4 mg IVP Q4 PRN PRN Reason: Nausea/Vomiting Oxycodone/Acetaminophen (Percocet 5/325 Mg Tab) 1 tab PO Q4H PRN PRN Reason: Pain, moderate (4-7) Stop: 08/01/18 23:22 - Labs Labs: 07/30/18 07:50 07/30/18 07:50 PT 12.3 SECONDS (9.7-12.2) H 07/30/18 07:50 INR 1.1 07/30/18 07:50 APTT 35 SECONDS (21-34) H 07/30/18 07:50 - Constitutional Appears: Non-toxic, No Acute Distress - Head Exam Head Exam: ATRAUMATIC, NORMAL INSPECTION, NORMOCEPHALIC - Eye Exam Eye Exam: EOMI, Normal appearance - Neck Exam Neck Exam: Normal Inspection - Respiratory Exam Respiratory Exam: Clear to Ausculation Bilateral, NORMAL BREATHING PATTERN - Cardiovascular Exam Cardiovascular Exam: REGULAR RHYTHM, +S1, +S2. absent: Murmur - GI/Abdominal Exam GI & Abdominal Exam: Soft, Tenderness (midline, LLQ), Normal Bowel Sounds. absent: Distended, Diminished Bowel Sounds - Rectal Exam Rectal Exam: NORMAL INSPECTION. absent: Black Stool, Bloody Stool, Hemorrhoids Additional comments: no fissures/external deformity, no hemorrhoids/lesions/masses, soft brown stool on glove - Extremities Exam Extremities Exam: Normal Inspection. absent: Calf Tenderness, Pedal Edema - Neurological Exam Neurological Exam: Alert, Awake - Psychiatric Exam Psychiatric exam: Normal Affect, Normal Mood - Skin Skin Exam: Dry, Intact, Normal Color, Warm Assessment and Plan - Assessment and Plan (Free Text) Assessment: 72 year old male w/ hx of AR x2, HTN, HLD, arthritis, asthma, depression, Bipolar disorder, gastric ulcers admitted for evaluation of acute abdominal pain and vomiting and treatment of SBO and incarcerated left inguinal hernia Plan: Left incarcerated inguinal hernia CT(07/29): Bowel containing left inguinal hernia w/o clear evidence of obstruction. Diverticulosis. Prostatic enlargement. Hypoattenuation of liver compatible w/ hepatic steatosis -pain management; percocet PRN -sx consult, Dr. Bhat SBO CT (07/29): No SBO identified CT(07/25): Mechanical SBO, likely related to regional enteritis in LLQ along an terior abdominal wall -NPO -IVF, LR @125 -antiemesis, zofran PRN -sx consult, Dr. Bhat R/O malignancy/ GI bleed -hgb stable 13.3 -32 lb wt loss from visit 8/18 -digital rectal exam unremarkable -f/u stool occult -AC contraindicated -f/u CEA -GI consult, Dr. Hernández Hx of MIs -EKG WNL -f/u echo -cardio consult, Dr. Junior HTN, untreated -stable, continue to monitor HLD, untreated -lipid panel WNL Prostatic hypertrophy -start flomax -I/Os Ppx VTE: SCDs, AC contraindicated GI: protonix IV Case discussed with Dr. High -Reanna Rubio, PGY-1 <Shania High V - Last Filed: 08/04/18 16:58> Objective - Vital Signs/Intake and Output Vital Signs (last 24 hours): Temp Pulse Resp BP Pulse Ox 97.9 F 66 20 106/68 97 08/04/18 15:00 08/04/18 15:00 08/04/18 15:00 08/04/18 15:00 08/04/18 15:00 Intake and Output: 08/04/18 08/04/18 06:59 18:59 Intake Total 200 1000 Output Total 400 Balance -200 1000 - Medications Medications: Current Medications Guaifenesin (Mucinex La) 600 mg PO BID [facility] Last Admin: 08/04/18 09:36 Dose: Not Given Ondansetron HCl (Zofran Inj) 4 mg IVP Q4 PRN PRN Reason: Nausea/Vomiting Pantoprazole Sodium (Protonix Inj) 40 mg IVP DAILY [facility] Last Admin: 08/04/18 09:40 Dose: 40 mg Sodium Chloride ([place] Baby Saline 30 Ml) 0 ml GUNNAR Q4H PRN PRN Reason: Nasal congestion Last Admin: 08/04/18 09:40 Dose: 1 spr Tamsulosin HCl (Flomax) 0.4 mg PO DAILY [facility] Last Admin: 08/04/18 09:36 Dose: Not Given Tramadol HCl (Ultram) 50 mg PO Q6H PRN PRN Reason: Pain, moderate (4-7) - Labs Labs: 08/04/18 07:26 08/04/18 07:26 PT 11.7 SECONDS (9.7-12.2) 08/04/18 07:26 INR 1.1 08/04/18 07:26 APTT 34 SECONDS (21-34) 08/03/18 06:54 Attending/Attestation - Attestation I have personally seen and examined this patient.: Yes I have fully participated in the care of the patient.: Yes I have reviewed all pertinent clinical information, including history, physical exam and plan: Yes Notes (Text): This is late computer entry for 07/30/18. Transfer of service from surgery to medicine as primary given patient's age with multiple co morbidities. Patient is pending a possible surgery procedure for left inguinal hernia repair; pending cardiac and gi workup. Patient seen at bedside with resident on rounds. Patient does not have a primary care doctor; reports history of 2 prior MIs; prior history of perforated [place] [facility] [place] ; no prior colonoscopy; noted constipation for the past 2 weeks w associated rectal bleeding; last noted Friday prior to admission. We will follow with cardiology, gi and general surgery to optimize patient prior to surgery procedure.
[2018-07-30 10:43] LABS: HDL CHOLESTEROL 33 mg/dL (30-70)
[2018-07-30 10:54] LABS: LDL CHOLESTEROL 100 mg/dL (0-129)
--- NOTE | 2018-07-30 12:18 | CT ---
PROCEDURE: CT Abdomen and Pelvis with oral and IV contrast. HISTORY: abd pain COMPARISON: CT abdomen and pelvis with IV contrast performed 07/25/18 TECHNIQUE: Contiguous axial images of the abdomen and pelvis. Oral and IV contrast was administered. Coronal and Sagittal reformats generated and reviewed. Contrast dose: 100 mL Omnipaque 350 IV Radiation dose: Total exam DLP = 608.98 mGy-cm. This CT exam was performed using one or more of the following dose reduction techniques: Automated exposure control, adjustment of the mA and/or kV according to patient size, and/or use of iterative reconstruction technique. FINDINGS: LOWER THORAX: No visible consolidation, pleural effusion, or pneumothorax. Bilateral gynecomastia. LIVER: Hypoattenuation of the liver compatible with hepatic steatosis. GALLBLADDER AND BILE DUCTS: Unremarkable. PANCREAS: Unremarkable. SPLEEN: Unremarkable. ADRENALS: Unremarkable. KIDNEYS AND URETERS: The kidneys enhance symmetrically. No hydronephrosis or obstructing renal calculus. BLADDER: The urinary bladder appears unremarkable. REPRODUCTIVE: The prostate gland measures approximately 3.7 x 4.8 cm. APPENDIX: No secondary signs of acute appendicitis. BOWEL: The stomach is nondistended. Bowel containing left inguinal hernia without evidence of obstruction. PERITONEUM: No significant free fluid. No definite free air. LYMPH NODES: No bulky lymphadenopathy identified. VASCULATURE: No aortic aneurysm. No atherosclerotic calcification or mural plaque present. BONES: Osseous demineralization. Degenerative changes. OTHER FINDINGS: None. IMPRESSION: Bowel containing left inguinal hernia without clear evidence of obstruction. Follow-up abdominal radiograph to assess for progression of oral contrast into the large colon suggested. Correlate clinically. Diverticulosis without CT evidence of acute diverticulitis. Borderline enlargement of the prostate gland. Recommend correlation with PSA. Additional findings as above. Hypoattenuation of the liver compatible with hepatic steatosis.
--- NOTE | 2018-07-30 18:57 | CP.PCM.CON ---
History of Present Illness - History of Present Illness History of Present Illness: This is a 72 year old man with rectal bleeding. Patient presented to the ER 07/29/2018 with sudden onset of sharp upper abdominal pain with nausea and vomiting. He had been seen in the ER four days before this, and SBO was diagnosed, but the point of obstruction was not identified. A left inguinal hernia containing descending colon was also noted. He was not admitted at that time. Patient also reported passing BRBPR on two occasions in the past week. He denies having diarrhea and constipation. He denies having heartburn, fiddculty swallowing, and loss of appetite. He reports a 20 pound weight loss. He has never had a colonoscopy. Review of Systems - Review of Systems All systems: reviewed and no additional remarkable complaints except - Constitutional Constitutional: absent: Chills, Fever - Cardiovascular Cardiovascular: absent: Chest Pain, Diaphoresis - Respiratory Respiratory: absent: Dyspnea - Gastrointestinal Gastrointestinal: Abdominal Pain, Constipation, Nausea, Vomiting. absent: Aurelia rrhea, Dysphagia, Heartburn, Hematochezia - Genitourinary Genitourinary: absent: Dysuria, Hematuria Past Patient History - Infectious Disease Hx of Infectious Diseases: None - Past Medical History & Family History Past Medical History?: Yes - Past Social History Smoking Status: Never Smoked - CARDIAC Hx Hypertension: No - PULMONARY Hx Asthma: Yes - NEUROLOGICAL Hx Seizures: No - HEENT Hx HEENT Problems: No - RENAL Hx Chronic Kidney Disease: No - ENDOCRINE/METABOLIC Hx Endocrine Disorders: No - HEMATOLOGICAL/ONCOLOGICAL Hx Human Immunodeficiency Virus (HIV): No - INTEGUMENTARY Hx Dermatological Problems: No - MUSCULOSKELETAL/RHEUMATOLOGICAL Hx Arthritis: Yes - GASTROINTESTINAL Hx Gastroesophageal Reflux: Yes - GENITOURINARY/GYNECOLOGICAL Hx Sexually Transmitted Disorders: No - PSYCHIATRIC Hx Depression: Yes Hx Substance Use: No - SURGICAL HISTORY Hx Surgeries: Yes Hx Orthopedic Surgery: Yes (left knee 30 yrs. ago) - ANESTHESIA Hx Anesthesia: Yes Meds Allergies/Adverse Reactions: Allergies Allergy/AdvReac Type Severity Reaction Status Date / Time Penicillins Allergy RASH Verified 07/29/18 16:19 - Medications Medications: Current Medications Lactated Ringer's (Lactated Ringer's) 1,000 mls @ 125 mls/hr IV .Q8H CÉSAR Last Admin: 07/30/18 14:43 Dose: 125 mls/hr Influenza Virus Vaccine (Flucelvax Quad [id number] Syr) 60 mcg IM .ONCE ONE Stop: 08/01/18 10:01 Ondansetron HCl (Zofran Inj) 4 mg IVP Q4 PRN PRN Reason: Nausea/Vomiting Oxycodone/Acetaminophen (Percocet 5/325 Mg Tab) 1 tab PO Q4H PRN PRN Reason: Pain, moderate (4-7) Stop: 08/01/18 23:22 Pantoprazole Sodium (Protonix Inj) 40 mg IVP DAILY [facility] Last Admin: 07/30/18 13:04 Dose: 40 mg Sodium Chloride ([place] Baby Saline 30 Ml) 0 ml GUNNAR Q4H PRN PRN Reason: Nasal congestion Tamsulosin HCl (Flomax) 0.4 mg PO DAILY [facility] Last Admin: 07/30/18 14:15 Dose: 0.4 mg Physical Exam - Constitutional Appears: No Acute Distress - Head Exam Head Exam: ATRAUMATIC, NORMOCEPHALIC - Eye Exam Eye Exam: EOMI, PERRL - Neck Exam Neck exam: Negative for: Lymphadenopathy - Respiratory Exam Respiratory Exam: NORMAL BREATHING PATTERN. absent: Rales, Rhonchi, Wheezes - Cardiovascular Exam Cardiovascular Exam: REGULAR RHYTHM, +S1, +S2. absent: Gallop, Rubs, Systolic Murmur - GI/Abdominal Exam GI & Abdominal Exam: Normal Bowel Sounds, Soft, Tenderness. absent: Organomegaly Additional comments: Tenderness to palpation in left groin - Rectal Exam Rectal Exam: Deferred - Extremities Exam Extremities exam: Negative for: calf tenderness, pedal edema Results - Vital Signs Recent Vital Signs: Last Vital Signs Temp 97.4 F L 07/30/18 16:00 Pulse 71 07/30/18 16:00 Resp 20 07/30/18 16:00 BP 113/72 07/30/18 16:00 Pulse Ox 96 07/30/18 16:00 - Labs Result Diagrams: 07/30/18 07:50 07/30/18 07:50 Labs: Laboratory Results - last 24 hr 07/29/18 07/30/18 07/30/18 23:05 07:50 07:50 WBC 6.1 RBC 4.38 L Hgb 13.3 Hct 39.5 MCV 90.2 MCH 30.3 MCHC 33.6 RDW 14.2 Plt Count 271 MPV 7.3 PT 16.6 H INR 1.5 APTT Sodium 136 Potassium 3.7 Chloride 102 Carbon Dioxide 32 H Anion Gap 7 L BUN 7 L Creatinine 0.8 Est GFR ( Amer) > 60 Est GFR (Non-Af Amer) > 60 Random Glucose 90 Hemoglobin A1c Calcium 8.3 L Triglycerides 115 Cholesterol 152 LDL Cholesterol Direct 100 HDL Cholesterol 33 Carcinoembryonic Ag 07/30/18 07/30/18 07/30/18 07:50 10:28 17:22 WBC RBC Hgb Hct MCV MCH MCHC RDW Plt Count MPV PT 12.3 H INR 1.1 APTT 35 H Sodium Potassium Chloride Carbon Dioxide Anion Gap BUN Creatinine Est GFR ( Amer) Est GFR (Non-Af Amer) Random Glucose Hemoglobin A1c 5.6 Calcium Triglycerides Cholesterol LDL Cholesterol Direct HDL Cholesterol Carcinoembryonic Ag 1.1 Assessment & Plan (1) Rectal bleeding Assessment and Plan: Patient had two episodes of rectal bleeding in the past week. Colonoscopy should be performed, though it may be technically difficult with the descending colon within the hernia sac. In this case, it may be postponed until after the hernia repair. Status: Acute
--- NOTE | 2018-07-30 23:53 | CON ---
DATE: 07/30/2018 CARDIOLOGY CONSULTATION REASON FOR CONSULTATION: Preoperative evaluation prior to repair of left inguinal hernia. HISTORY OF PRESENT ILLNESS: The patient is a 72-year-old male who initially was admitted because of abdominal pain, nausea and vomiting and was earlier diagnosed with partially incarcerated inguinal hernia with moderate bowel obstruction. The patient is currently comfortable. Had two bowel movements. Denies any abdominal pain. Denies any chest pain. The patient stated that he had a heart attack in the past, probably in 2013 as far as he can remember, but does not recall having any cardiac catheterization or coronary intervention. He denies retrosternal chest pain, palpitation, dizziness or diaphoresis. SOCIAL HISTORY: Nonsmoker, nondrinker. MEDICATIONS: Lactated Ringer's 125 mL per hour, Protonix 40 mg intravenously daily, Zofran 4 mg intravenously every 4 hours p.r.n. REVIEW OF SYSTEMS: No fever or chills. No dizziness or syncope. No retrosternal chest pain. PHYSICAL EXAMINATION: GENERAL: The patient is an elderly male who does not appear to be in acute distress. VITAL SIGNS: Blood pressure 124/63, heart rate 63, temperature 98.2, respirations 20. HEENT: Normocephalic. CHEST: Clear. HEART: S1 and S2, regular. ABDOMEN: Soft. EXTREMITIES: No edema. LABORATORY DATA: SMA-7 on admission is within normal limits except for BUN of 8. Lipid profile is also within normal limits. Lipase is within normal limits. Hemoglobin, hematocrit, white count and platelet count are within normal limits. EKG reveals normal sinus rhythm at 64. ASSESSMENT: Abdominal pain with partially incarcerated inguinal hernia which is resolved. RECOMMENDATIONS: Continue current lactate Ringer's, Percocet tablet, and intravenous Protonix as well as intravenous Zofran p.r.n. I will review the echocardiography study performed today. The case was discussed with the medical team. Steven Junior MD
[2018-07-31] MEDS: Lactated Ringer's 1,000 ML IV SCH ×3 (02:34→08:15)
--- NOTE | 2018-07-31 04:59 | CARD ---
APPROVED REPORT Date of service: 07/30/2018 EXAM: Two-dimensional and M-mode echocardiogram with Doppler and color Doppler. RISK FACTORS Hypertension Hyperlipidemia 2D DIMENSIONS IVSd0.9 (0.7-1.1cm)LVDd4.4 (3.9-5.9cm) PWd0.9 (0.7-1.1cm)LA Ikeulq96 (18-58mL) LVDs3.2 (2.5-4.0cm)FS (%) 26.4 % LVEF (%)52.0 (>50%)LVEF ([place])63.35 % M-Mode DIMENSIONS Left Atrium (MM)4.50 (2.5-4.0cm)IVSd0.83 (0.7-1.1cm) Aortic Root3.59 (2.2-3.7cm)LVDd5.08 (4.0-5.6cm) Aortic Cusp Exc.2.28 (1.5-2.0cm)PWd0.73 (0.7-1.1cm) FS (%) 34 %LVDs3.37 (2.0-3.8cm) LVEF (%)62 (>50%) Mitral Valve MV E Jvdxmfak42.5cm/sMV A Mdkpwtjy84.9cm/sE/A ratio1.2 TDI Lateral E' Peak V11.58cm/sMedial E' Peak V7.84cm/sE/Lateral E'6.2 E/Medial E'9.1 Tricuspid Valve TR Peak [id number]/sTR Peak Gr.[id number] LEFT VENTRICLE The left ventricle is normal size. There is normal left ventricular wall thickness. Left ventricle systolic function is normal. The Ejection Fraction is 60-65%. There is normal LV segmental wall motion. The left ventricular diastolic function is normal. RIGHT VENTRICLE The right ventricle is normal size. There is normal right ventricular wall thickness. The right ventricular systolic function is normal. ATRIA The left atrium is mildly dilated. The right atrium size is normal. The interatrial septum is intact with no evidence for an atrial septal defect. AORTIC VALVE The aortic valve is normal in structure. No aortic regurgitation is present. There is no aortic valvular stenosis. MITRAL VALVE The mitral valve is normal in structure. There is no evidence of mitral valve prolapse. There is no mitral valve stenosis. Mitral regurgitation is mild. TRICUSPID VALVE The tricuspid valve is normal in structure. There is mild tricuspid regurgitation. There is mild tricuspid regurgitation. Right ventricular systolic pressure is estimated at 30-40 mmHg. There is mild pulmonary hypertension. PULMONIC VALVE The pulmonic valve is not well visualized. There is no pulmonic valvular regurgitation. GREAT VESSELS The aortic root is normal in size. PERICARDIAL EFFUSION There is no significant pericardial effusion. <Conclusion> Left ventricle systolic function is normal. The Ejection Fraction is 60-65%. No aortic regurgitation is present. Mitral regurgitation is mild. There is mild tricuspid regurgitation. There is mild pulmonary hypertension. There is no pulmonic valvular regurgitation.
--- NOTE | 2018-07-31 07:27 | CP.PCM.PN ---
<Greg Tim - Last Filed: 07/31/18 17:36> Subjective - Date & Time of Evaluation Date of Evaluation: 07/31/18 Time of Evaluation: 07:26 - Subjective Subjective: PGY-1 Medicine Progress Note for Dr. High Patient seen and examined at bedside, resting comfortably. No acute overnight events reported, no acute somatic complaints. Patient endorses mild generalized abdominal pain, though not notably appreciable on physical exam. No fevers/chills, chest pain, palpitations, sob, cough, n/v/d/c. 12 pt ROS reviewed and otherwise negative. Patient aware of scheduled colonoscopy for Friday. Objective - Vital Signs/Intake and Output Vital Signs (last 24 hours): Temp Pulse Resp BP Pulse Ox 97.6 F 64 20 113/58 L 96 07/31/18 00:00 07/31/18 00:00 07/31/18 00:00 07/31/18 00:00 07/31/18 00:00 Intake and Output: 07/31/18 07/31/18 06:59 18:59 Intake Total 2000 Output Total 1000 Balance 1000 - Medications Medications: Current Medications Lactated Ringer's (Lactated Ringer's) 1,000 mls @ 125 mls/hr IV .Q8H [facility] Last Admin: 07/31/18 05:21 Dose: 125 mls/hr Influenza Virus Vaccine (Flucelvax Quad [id number] Syr) 60 mcg IM .ONCE ONE Stop: 08/01/18 10:01 Ondansetron HCl (Zofran Inj) 4 mg IVP Q4 PRN PRN Reason: Nausea/Vomiting Oxycodone/Acetaminophen (Percocet 5/325 Mg Tab) 1 tab PO Q4H PRN PRN Reason: Pain, moderate (4-7) Stop: 08/01/18 23:22 Pantoprazole Sodium (Protonix Inj) 40 mg IVP DAILY [facility] Last Admin: 07/30/18 13:04 Dose: 40 mg Sodium Chloride ([place] Baby Saline 30 Ml) 0 ml GUNNAR Q4H PRN PRN Reason: Nasal congestion Tamsulosin HCl (Flomax) 0.4 mg PO DAILY [facility] Last Admin: 07/30/18 14:15 Dose: 0.4 mg - Labs Labs: 07/30/18 07:50 07/30/18 07:50 PT 12.3 SECONDS (9.7-12.2) H 07/30/18 07:50 INR 1.1 07/30/18 07:50 APTT 35 SECONDS (21-34) H 07/30/18 07:50 - Constitutional Appears: Non-toxic, No Acute Distress - Head Exam Head Exam: ATRAUMATIC, NORMAL INSPECTION, NORMOCEPHALIC - Eye Exam Eye Exam: EOMI, Normal appearance Pupil Exam: NORMAL ACCOMODATION - ENT Exam ENT Exam: Mucous Membranes Moist, Normal Exam - Neck Exam Neck Exam: Full ROM, Normal Inspection - Respiratory Exam Respiratory Exam: Clear to Ausculation Bilateral, NORMAL BREATHING PATTERN. absent: Accessory Muscle Use, Rales, Rhonchi, Wheezes, Respiratory Distress, Stridor - Cardiovascular Exam Cardiovascular Exam: REGULAR RHYTHM, +S1, +S2 - GI/Abdominal Exam GI & Abdominal Exam: Soft, Hernia (L inguina, reduced). absent: Distended, Firm, Guarding, Rigid, Tenderness, Rebound - Neurological Exam Neurological Exam: Alert, Awake, Oriented x3 - Psychiatric Exam Psychiatric exam: Normal Affect, Normal Mood - Skin Skin Exam: Dry, Intact, Normal Color, Warm Assessment and Plan - Assessment and Plan (Free Text) Assessment: 72 year old M with PMHx of CAD, DC x2, past gastric and duodenal ulcers with perforation, HTN, HLD, asthma, depression, bipolar presenting with partial SBO 2/2 incarcerated L inguinal hernia Plan: Partial SBO 2/2 L incarcerated inguinal hernia -CT Abdomen/Pelvis (07/29): Bowel containing left inguinal hernia w/o clear evidence of obstruction. Diverticulosis. Prostatic enlargement. Hypoattenuation of liver compatible w/ hepatic steatosis -GI recs (Dr. Chiang) appreciated -colonoscopy scheduled for Friday -General surgery recs (Dr. Bhat) appreciated -GI plan for colonoscopy Friday -f/u cardiac clearance -will plan for OR next week after colonoscopy -Percocet prn for pain -zofran prn for nausea Rectal Bleeding -pt has history of rectal bleeding -ISIDRA on admission unremarkable -32 lb wt loss from last visit (01/17) -Hb stable 13.9, continue to monitor -CEA wnl -f/u occult stool -GI recs appreciated: colonoscopy scheduled for Friday (08/03) CAD -Hx of DC x2 -EKG (07/29): NSR @ 64 bpm -Echo (07/30): LVEF 60-65%, normal systolic function. Mild mitral/tricuspid regurgitation. Mild pulmonary HTN. -f/u cardiac clearance (Dr. Junior) Hx of HTN -stable, continue to monitor Hx of HLD -lipid panel WNL Hypertrophic Prostate -Tamsulosin 0.4 mg PO daily -I/Os PPx, Diet, Disposition -DVT ppx: scds, oral AC contraindicated -GI ppx: protonix -Diet: HHD -Dispo: Pt scheduled for colonscopy Friday, 08/03. Surgical intervention planned next week post-colonoscopy Case discussed with Dr. Anila Tim DO, PGY-1 <Shania High V - Last Filed: 08/04/18 17:04> Objective - Vital Signs/Intake and Output Vital Signs (last 24 hours): Temp Pulse Resp BP Pulse Ox 97.9 F 66 20 106/68 97 08/04/18 15:00 08/04/18 15:00 08/04/18 15:00 08/04/18 15:00 08/04/18 15:00 Intake and Output: 08/04/18 08/04/18 06:59 18:59 Intake Total 200 1000 Output Total 400 Balance -200 1000 - Medications Medications: Current Medications Guaifenesin (Mucinex La) 600 mg PO BID [facility] Last Admin: 08/04/18 09:36 Dose: Not Given Ondansetron HCl (Zofran Inj) 4 mg IVP Q4 PRN PRN Reason: Nausea/Vomiting Pantoprazole Sodium (Protonix Inj) 40 mg IVP DAILY [facility] Last Admin: 08/04/18 09:40 Dose: 40 mg Sodium Chloride ([place] Baby Saline 30 Ml) 0 ml GUNNAR Q4H PRN PRN Reason: Nasal congestion Last Admin: 08/04/18 09:40 Dose: 1 spr Tamsulosin HCl (Flomax) 0.4 mg PO DAILY [facility] Last Admin: 08/04/18 09:36 Dose: Not Given Tramadol HCl (Ultram) 50 mg PO Q6H PRN PRN Reason: Pain, moderate (4-7) - Labs Labs: 08/04/18 07:26 08/04/18 07:26 PT 11.7 SECONDS (9.7-12.2) 08/04/18 07:26 INR 1.1 08/04/18 07:26 APTT 34 SECONDS (21-34) 08/03/18 06:54 Attending/Attestation - Attestation I have personally seen and examined this patient.: Yes I have fully participated in the care of the patient.: Yes I have reviewed all pertinent clinical information, including history, physical exam and plan: Yes Notes (Text): This is late computer entry for 07/31/18. Patient seen, examined, and case discussed with day-time resident. Patient seen this morning. Patient reports he had a bowel movement, no rectal bleeding noted. Discussed case with GI, plan is for colonoscopy for Friday; I updated the director international on surgery, Dr. Grider as well. Patient has completed echocardiogram and evaluated by cardiology. patient is pending possible surgery procedure post colonoscopy next week.
--- NOTE | 2018-07-31 07:37 | CP.PCM.PN ---
Subjective - Date & Time of Evaluation Date of Evaluation: 07/31/18 Time of Evaluation: 07:33 - Subjective Subjective: Patient denies having nausea, vomiting, abdominal pain. He has not had a bowel movement so far this morning. Objective - Vital Signs/Intake and Output Vital Signs (last 24 hours): Temp Pulse Resp BP Pulse Ox 97.6 F 64 20 113/58 L 96 07/31/18 00:00 07/31/18 00:00 07/31/18 00:00 07/31/18 00:00 07/31/18 00:00 Intake and Output: 07/31/18 07/31/18 06:59 18:59 Intake Total 2000 Output Total 1000 Balance 1000 - Medications Medications: Current Medications Lactated Ringer's (Lactated Ringer's) 1,000 mls @ 125 mls/hr IV .Q8H [facility] Last Admin: 07/31/18 05:21 Dose: 125 mls/hr Influenza Virus Vaccine (Flucelvax Quad 8960-0374 Syr) 60 mcg IM .ONCE ONE Stop: 08/01/18 10:01 Ondansetron HCl (Zofran Inj) 4 mg IVP Q4 PRN PRN Reason: Nausea/Vomiting Oxycodone/Acetaminophen (Percocet 5/325 Mg Tab) 1 tab PO Q4H PRN PRN Reason: Pain, moderate (4-7) Stop: 08/01/18 23:22 Pantoprazole Sodium (Protonix Inj) 40 mg IVP DAILY [facility] Last Admin: 07/30/18 13:04 Dose: 40 mg Sodium Chloride ([place] Baby Saline 30 Ml) 0 ml GUNNAR Q4H PRN PRN Reason: Nasal congestion Tamsulosin HCl (Flomax) 0.4 mg PO DAILY [facility] Last Admin: 07/30/18 14:15 Dose: 0.4 mg - Labs Labs: 07/30/18 07:50 07/30/18 07:50 PT 12.3 SECONDS (9.7-12.2) H 07/30/18 07:50 INR 1.1 07/30/18 07:50 APTT 35 SECONDS (21-34) H 07/30/18 07:50 - Constitutional Appears: No Acute Distress - Head Exam Head Exam: ATRAUMATIC, NORMOCEPHALIC - Eye Exam Eye Exam: EOMI, PERRL - Neck Exam Neck Exam: absent: Lymphadenopathy, Thyromegaly - Respiratory Exam Respiratory Exam: NORMAL BREATHING PATTERN. absent: Rales, Rhonchi, Wheezes - Cardiovascular Exam Cardiovascular Exam: REGULAR RHYTHM, +S1, +S2. absent: Gallop, Rubs, Murmur - GI/Abdominal Exam GI & Abdominal Exam: Soft, Tenderness, Normal Bowel Sounds. absent: Organomegaly Additional comments: Tenderness to palpation over left groin - Rectal Exam Rectal Exam: Deferred - Extremities Exam Extremities Exam: absent: Calf Tenderness, Pedal Edema Assessment and Plan (1) Rectal bleeding Assessment & Plan: Patient has history of rectal bleeding. Will attempt colonscopy on Friday, or after herniorrhaphy Status: Acute
[2018-07-31 08:41] LABS: HEMOGLOBIN 13.9 g/dL (12.0-18.0); MEAN CELL VOLUME 91.5 fL (80.0-94.0); MEAN CORPUSCULAR HEMOGLOBIN 30.2 pg (27.0-31.0); MEAN PLATELET VOLUME 7.5 fL (7.2-11.7); RBC 4.59 Mil/uL (4.40-5.90); RED CELL DISTRIBUTION WIDTH 13.9 % (11.5-14.5); WHITE BLOOD COUNT 7.1 K/uL (4.8-10.8)
[2018-07-31 08:58] LABS: ALB/GLOB RATIO 1.4 (1.0-2.1); ALBUMIN 3.9 g/dL (3.5-5.0); ALT/SGPT 17 U/L (21-72); AST/SGOT 29 U/L (17-59); BLOOD UREA NITROGEN 8 mg/dL (9-20); CALCIUM 8.5 mg/dl (8.6-10.4); GFR NON-AFRICAN AMERICAN > 60
--- NOTE | 2018-07-31 09:06 | CP.PCM.PN ---
Subjective - Date & Time of Evaluation Date of Evaluation: 07/31/18 Time of Evaluation: 09:02 - Subjective Subjective: General Surgery - Dr. Bhat Pt Seen and examined. No acute events overnight. Pt denies any complaints. He has mild pain at the Left inguinal region when walking or coughing but is comfortable at rest. He denies any nausea/vomiting/fever/chills/sob/chest pain. He denies any further blood per rectum. Pt aware of plan for Colnoscopy on Friday. Objective - Vital Signs/Intake and Output Vital Signs (last 24 hours): Temp Pulse Resp BP Pulse Ox 97.6 F 68 20 113/73 95 07/31/18 08:00 07/31/18 08:00 07/31/18 08:00 07/31/18 08:00 07/31/18 08:00 Intake and Output: 07/31/18 07/31/18 06:59 18:59 Intake Total 2000 Output Total 1000 Balance 1000 - Medications Medications: Current Medications Influenza Virus Vaccine (Flucelvax Quad [id number] Syr) 60 mcg IM .ONCE ONE Stop: 08/01/18 10:01 Ondansetron HCl (Zofran Inj) 4 mg IVP Q4 PRN PRN Reason: Nausea/Vomiting Oxycodone/Acetaminophen (Percocet 5/325 Mg Tab) 1 tab PO Q4H PRN PRN Reason: Pain, moderate (4-7) Stop: 08/01/18 23:22 Pantoprazole Sodium (Protonix Inj) 40 mg IVP DAILY [facility] Last Admin: 07/30/18 13:04 Dose: 40 mg Sodium Chloride ([place] Baby Saline 30 Ml) 0 ml GUNNAR Q4H PRN PRN Reason: Nasal congestion Tamsulosin HCl (Flomax) 0.4 mg PO DAILY [facility] Last Admin: 07/30/18 14:15 Dose: 0.4 mg - Labs Labs: 07/31/18 08:23 07/31/18 08:23 PT 12.3 SECONDS (9.7-12.2) H 07/30/18 07:50 INR 1.1 07/30/18 07:50 APTT 35 SECONDS (21-34) H 07/30/18 07:50 - Constitutional Appears: No Acute Distress - Head Exam Head Exam: NORMAL INSPECTION - Eye Exam Eye Exam: Normal appearance - ENT Exam ENT Exam: Mucous Membranes Moist - GI/Abdominal Exam GI & Abdominal Exam: Soft, Hernia (Left inguinal, reduced). absent: Distended, Tenderness - Neurological Exam Neurological Exam: Alert, Oriented x3 - Psychiatric Exam Psychiatric exam: Normal Affect, Normal Mood - Skin Skin Exam: Dry, Intact Assessment and Plan - Assessment and Plan (Free Text) Assessment: 72M admitted w/ blood per rectum, recent weight loss, and Left inguinal hernia, reduced Plan: - Regular diet - GI plan for colonoscopy Friday, F/U - F/U Cardiac clearance - Will plan for OR next week after colonoscopy NAM Bhat
[2018-07-31] MEDS: guaiFENesin 600 mg ER Tab PO SCH (17:55)
--- NOTE | 2018-07-31 19:03 | PN ---
DATE: 07/31/2018 SUBJECTIVE: The patient denied any chest pain or shortness of breath. He denied any abdominal pain. He had bowel movement today. PHYSICAL EXAMINATION: VITAL SIGNS: Blood pressure 116/73, heart rate 68, temperature 97.6, respirations 20. HEENT: Normocephalic. CHEST: Clear. HEART: S1 and S2, regular. EXTREMITIES: No edema. LABORATORY DATA: SMA-7 is within normal limits except for carbon dioxide of 31 and BUN of 8. Today's calcium is 8.3. Today's CBC is within normal limits. ASSESSMENT: Left inguinal hernia status post partially incarcerated hernia. RECOMMENDATIONS: Continue current Percocet and IV Protonix. The patient is scheduled for colonoscopy tomorrow. Steven Junior MD
[2018-08-01 06:50] LABS: HEMOGLOBIN 13.2 g/dL (12.0-18.0); MEAN CELL VOLUME 90.6 fL (80.0-94.0); MEAN CORPUSCULAR HEMOGLOBIN 30.6 pg (27.0-31.0); MEAN CORPUSCULAR HGB CONC 33.8 g/dL (33.0-37.0); MEAN PLATELET VOLUME 7.6 fL (7.2-11.7); RBC 4.31 Mil/uL (4.40-5.90); RED CELL DISTRIBUTION WIDTH 14.1 % (11.5-14.5); WHITE BLOOD COUNT 7.6 K/uL (4.8-10.8)
[2018-08-01 06:57] LABS: ALB/GLOB RATIO 1.4 (1.0-2.1); ALBUMIN 3.7 g/dL (3.5-5.0); ALT/SGPT 17 U/L (21-72); AST/SGOT 20 U/L (17-59); BLOOD UREA NITROGEN 11 mg/dL (9-20); CALCIUM 8.4 mg/dl (8.6-10.4); GFR NON-AFRICAN AMERICAN > 60
--- NOTE | 2018-08-01 07:39 | CP.PCM.PN ---
Subjective - Date & Time of Evaluation Date of Evaluation: 08/01/18 Time of Evaluation: 07:36 - Subjective Subjective: SURGERY NOTE FOR DR. FERREIRA 72M seen and examined at bedside. Patient tolerating diet, having bowel function, denies abdominal pain, denies blood per rectum. Objective - Vital Signs/Intake and Output Vital Signs (last 24 hours): Temp Pulse Resp BP Pulse Ox 97.2 F L 78 20 94/51 L 97 08/01/18 00:00 08/01/18 00:00 08/01/18 00:00 08/01/18 00:00 08/01/18 00:00 Intake and Output: 08/01/18 08/01/18 06:59 18:59 Intake Total 480 Balance 480 - Medications Medications: Current Medications Guaifenesin (Mucinex La) 600 mg PO BID [facility] Last Admin: 07/31/18 17:55 Dose: 600 mg Influenza Virus Vaccine (Flucelvax Quad [id number] Syr) 60 mcg IM .ONCE ONE Stop: 08/01/18 10:01 Ondansetron HCl (Zofran Inj) 4 mg IVP Q4 PRN PRN Reason: Nausea/Vomiting Oxycodone/Acetaminophen (Percocet 5/325 Mg Tab) 1 tab PO Q4H PRN PRN Reason: Pain, moderate (4-7) Stop: 08/01/18 23:22 Pantoprazole Sodium (Protonix Inj) 40 mg IVP DAILY [facility] Last Admin: 07/31/18 09:30 Dose: 40 mg Sodium Chloride ([place] Baby Saline 30 Ml) 0 ml GUNNAR Q4H PRN PRN Reason: Nasal congestion Tamsulosin HCl (Flomax) 0.4 mg PO DAILY [facility] Last Admin: 07/31/18 09:30 Dose: 0.4 mg - Labs Labs: 08/01/18 06:30 08/01/18 06:30 PT 12.3 SECONDS (9.7-12.2) H 07/30/18 07:50 INR 1.1 07/30/18 07:50 APTT 35 SECONDS (21-34) H 07/30/18 07:50 - Constitutional Appears: Non-toxic, No Acute Distress - Respiratory Exam Respiratory Exam: Clear to Ausculation Bilateral, NORMAL BREATHING PATTERN - Cardiovascular Exam Cardiovascular Exam: REGULAR RHYTHM, +S1, +S2 - GI/Abdominal Exam GI & Abdominal Exam: Soft. absent: Distended, Firm, Guarding, Rigid, Tenderness, Rebound Additional comments: left inguinal hernia reduced - Neurological Exam Neurological Exam: Alert, Awake Assessment and Plan - Assessment and Plan (Free Text) Assessment: 72M with left inguinal hernia and GI bleed Plan: - colonoscopy friday - cardiac clearance require for OR - Will fix hernia pending colonoscopy findings, CEA neg Further recs discuss with Dr. Home Lovell, PGY3
[2018-08-01] MEDS ORDERED: Influenza Vaccine 60 mcg/0.5 mL SYR (4YR UP) IM ONE (10:00)
[2018-08-01] MEDS: Sodium Chloride Nasal 0.65% Soln (30ml) NAS PRN ×2 (10:12→13:43)
[2018-08-01] MEDS: guaiFENesin 600 mg ER Tab PO SCH ×2 (10:12→18:22)
--- NOTE | 2018-08-01 10:38 | CP.PCM.PN ---
<Carley Atkinson - Last Filed: 08/01/18 15:42> Subjective - Date & Time of Evaluation Date of Evaluation: 08/01/18 Time of Evaluation: 08:00 - Subjective Subjective: Medicine Progress Note: Patient was seen and examined at bedside. Patient states he is feeling well. He denies abdominal pain, blood in his stool or dark stool. Patient denies chest pain, shortness of breath, nausea or vomiting. He states he did work with physical therapy and they are recommending him to use a cane. Objective - Vital Signs/Intake and Output Vital Signs (last 24 hours): Temp Pulse Resp BP Pulse Ox 97.7 F 68 20 110/74 97 08/01/18 08:16 08/01/18 08:16 08/01/18 08:16 08/01/18 08:16 08/01/18 08:16 Intake and Output: 08/01/18 08/01/18 06:59 18:59 Intake Total 480 Balance 480 - Medications Medications: Current Medications Guaifenesin (Mucinex La) 600 mg PO BID [facility] Last Admin: 08/01/18 10:12 Dose: 600 mg Ondansetron HCl (Zofran Inj) 4 mg IVP Q4 PRN PRN Reason: Nausea/Vomiting Oxycodone/Acetaminophen (Percocet 5/325 Mg Tab) 1 tab PO Q4H PRN PRN Reason: Pain, moderate (4-7) Stop: 08/01/18 23:22 Pantoprazole Sodium (Protonix Inj) 40 mg IVP DAILY [facility] Last Admin: 08/01/18 10:12 Dose: 40 mg Sodium Chloride ([place] Baby Saline 30 Ml) 0 ml GUNNAR Q4H PRN PRN Reason: Nasal congestion Last Admin: 08/01/18 10:12 Dose: 1 spr Tamsulosin HCl (Flomax) 0.4 mg PO DAILY [facility] Last Admin: 08/01/18 10:12 Dose: 0.4 mg - Labs Labs: 08/01/18 06:30 08/01/18 06:30 PT 12.3 SECONDS (9.7-12.2) H 07/30/18 07:50 INR 1.1 07/30/18 07:50 APTT 35 SECONDS (21-34) H 07/30/18 07:50 - Constitutional Appears: No Acute Distress - Head Exam Head Exam: ATRAUMATIC, NORMAL INSPECTION - Eye Exam Eye Exam: EOMI, Normal appearance - ENT Exam ENT Exam: Mucous Membranes Moist Additional comments: poor dentition - Respiratory Exam Respiratory Exam: Clear to Ausculation Bilateral, NORMAL BREATHING PATTERN - GI/Abdominal Exam GI & Abdominal Exam: Soft, Normal Bowel Sounds. absent: Tenderness - Extremities Exam Extremities Exam: Normal Inspection - Neurological Exam Neurological Exam: Alert, Awake, Oriented x3 - Psychiatric Exam Psychiatric exam: Normal Affect - Skin Skin Exam: Normal Color Assessment and Plan - Assessment and Plan (Free Text) Assessment: Rectal Bleeding - HH stable 13.9, continue to monitor - CEA 1.1(WNL) - f/u occult stool - GI Consult: Dr. Chiang --> help appreciated * Colonoscopy scheduled for Friday (08/03) * Spoke with Dr. Junior - Patient is medically optimized for colonoscopy 08/03/18 Partial SBO 2/2 L incarcerated inguinal hernia - Images: * CT Abdomen/Pelvis (07/29): Bowel containing left inguinal hernia w/o clear evidence of obstruction. Diverticulosis. Prostatic enlargement. Hypoattenuation of liver compatible w/ hepatic steatosis - General Surgery Consult: Dr. Bhat --> help appreciated - f/u cardiac clearance - will plan for OR next week after colonoscopy - Medications: * Percocet prn for pain * Zofran prn for nausea History of CAD - Hx of MA x2 - Cardiac Consult: Dr. Junior --> help appreciated - Images: * EKG (07/29): NSR @ 64 bpm * Echo (07/30): LVEF 60-65%, normal systolic function. Mild mitral/tricuspid regurgitation. Mild pulmonary HTN. * Chest Xray: No interval pathology noted. Similar biapical pleural thickening. Osseous changes as above * ECHO (07/31/18): EF 60-65%; left ventricle systolic function is normal; no aortic regurgitation is present. History of HTN - Normotensive - Continue to monitor History of HLD - lipid panel: Total cholesterol 152; LDL 100; HDL 33; hA1c 5.6 Hypertrophic Prostate - Tamsulosin 0.4 mg PO daily - I/Os Prophylaxis - DVT ppx: scds, oral AC contraindicated - GI ppx: protonix Disposition: Pt scheduled for colonscopy Friday, 08/03. Surgical intervention planned next week post-colonoscopy Case discussed with Dr. High <AnilaJaquanShania Lashaun - Last Filed: 08/02/18 21:42> Objective - Vital Signs/Intake and Output Vital Signs (last 24 hours): Temp Pulse Resp BP Pulse Ox 97.5 F L 70 20 100/59 L 96 08/02/18 16:10 08/02/18 16:10 08/02/18 16:10 08/02/18 16:10 08/02/18 16:10 Intake and Output: 08/02/18 08/03/18 18:59 06:59 Intake Total 500 Balance 500 - Medications Medications: Current Medications Guaifenesin (Mucinex La) 600 mg PO BID [facility] Last Admin: 08/02/18 17:46 Dose: 600 mg Ondansetron HCl (Zofran Inj) 4 mg IVP Q4 PRN PRN Reason: Nausea/Vomiting Pantoprazole Sodium (Protonix Inj) 40 mg IVP DAILY [facility] Last Admin: 08/02/18 09:35 Dose: 40 mg Sodium Chloride ([place] Baby Saline 30 Ml) 0 ml GUNNAR Q4H PRN PRN Reason: Nasal congestion Last Admin: 08/02/18 09:42 Dose: 1 spr Tamsulosin HCl (Flomax) 0.4 mg PO DAILY [facility] Last Admin: 08/02/18 09:34 Dose: 0.4 mg - Labs Labs: 08/02/18 08:15 08/02/18 08:15 PT 11.6 SECONDS (9.7-12.2) 08/02/18 11:00 INR 1.1 08/02/18 11:00 APTT 35 SECONDS (21-34) H 08/02/18 11:00 Attending/Attestation - Attestation I have personally seen and examined this patient.: Yes I have fully participated in the care of the patient.: Yes I have reviewed all pertinent clinical information, including history, physical exam and plan: Yes Notes (Text): This is late computer entry for 08/01/18. Patient seen, examined and case discussed with medical collector. I saw the patient this morning. He denies acute symptoms. He reports his nasal congestion has improved with the saline spray. He is aware he is going for colonoscopy on Friday. Gi/cardiology/general surgery on board. Assessment/Plan 1. Rectal Bleeding? Constipation Assessment/Plan * HH stable continue to monitor * CEA 1.1(WNL) * FOBT pending * GI Consult: Dr. Chiang --> help appreciated * Colonoscopy scheduled for Friday (08/03) * Patient to receive bowel preparation 08/02 for colonoscopy in the morning. * Spoke with Dr. Junior - Patient is medically optimized for colonoscopy 08/03/18 2. Partial SBO 2/2 L incarcerated inguinal hernia Assessment/Plan * General Surgery Consult: Dr. Bhat --> help appreciated * Preoperative/intraoperative/postoperative management * Cardiology and GI on board * Images: * CT Abdomen/Pelvis (07/29): Bowel containing left inguinal hernia w/o clear evidence of obstruction. Diverticulosis. Prostatic enlargement. Hypoattenuation of liver compatible w/ hepatic steatosis * Medications: * Percocet prn for pain * Zofran prn for nausea 3. History of MA Assessment/Plan * Cardiac Consult: Dr. Junior --> help appreciated - Images: * EKG (07/29): NSR @ 64 bpm * Echo (07/30): LVEF 60-65%, normal systolic function. Mild mitral/tricuspid regurgitation. Mild pulmonary HTN. * Chest Xray: No interval pathology noted. Similar biapical pleural thickening. Osseous changes as above * ECHO (07/31/18): EF 60-65%; left ventricle systolic function is normal; no aortic regurgitation is present. 5. History of HTN Assessment/Plan * monitor 6. History of HLD Assessment/Plan * lipid panel: Total cholesterol 152; LDL 100; HDL 33; hA1c 5.6 7. Hypertrophic Prostate Assessment/Plan * Tamsulosin 0.4 mg PO daily * I/Os 8. Prophylaxis * DVT ppx: scds, chemical anticoagulation contraindication held secondary to rectal bleeding * GI ppx: protonix Disposition: Pt scheduled for colonscopy tomorrow (08/03). NPO past midnight. Pt explained on expected results of golytely. Surgical intervention planned next week post-colonoscopy.
--- NOTE | 2018-08-01 11:55 | CP.PCM.PN ---
Subjective - Date & Time of Evaluation Date of Evaluation: 08/01/18 Time of Evaluation: 11:25 - Subjective Subjective: f/u R bleed. Covering Dr Chiang. Denies RB, melena, CP, SOB, MATOS, cough, hematuria, hemoptysis, Objective - Vital Signs/Intake and Output Vital Signs (last 24 hours): Temp Pulse Resp BP Pulse Ox 97.7 F 68 20 110/74 97 08/01/18 08:16 08/01/18 08:16 08/01/18 08:16 08/01/18 08:16 08/01/18 08:16 Intake and Output: 08/01/18 08/01/18 06:59 18:59 Intake Total 480 Balance 480 - Medications Medications: Current Medications Guaifenesin (Mucinex La) 600 mg PO BID [facility] Last Admin: 08/01/18 10:12 Dose: 600 mg Ondansetron HCl (Zofran Inj) 4 mg IVP Q4 PRN PRN Reason: Nausea/Vomiting Oxycodone/Acetaminophen (Percocet 5/325 Mg Tab) 1 tab PO Q4H PRN PRN Reason: Pain, moderate (4-7) Stop: 08/01/18 23:22 Pantoprazole Sodium (Protonix Inj) 40 mg IVP DAILY [facility] Last Admin: 08/01/18 10:12 Dose: 40 mg Sodium Chloride ([place] Baby Saline 30 Ml) 0 ml GUNNAR Q4H PRN PRN Reason: Nasal congestion Last Admin: 08/01/18 10:12 Dose: 1 spr Tamsulosin HCl (Flomax) 0.4 mg PO DAILY [facility] Last Admin: 08/01/18 10:12 Dose: 0.4 mg - Labs Labs: 08/01/18 06:30 08/01/18 06:30 PT 12.3 SECONDS (9.7-12.2) H 07/30/18 07:50 INR 1.1 07/30/18 07:50 APTT 35 SECONDS (21-34) H 07/30/18 07:50 - Constitutional Appears: Well - Respiratory Exam Respiratory Exam: Clear to Ausculation Bilateral - Cardiovascular Exam Cardiovascular Exam: RRR - GI/Abdominal Exam GI & Abdominal Exam: Soft, Hernia, Normal Bowel Sounds. absent: Guarding, Tenderness, Hypoactive Bowel Sounds - Extremities Exam Extremities Exam: absent: Calf Tenderness - Neurological Exam Neurological Exam: Alert, Awake, Oriented x3 Assessment and Plan (1) Incarcerated left inguinal hernia Assessment & Plan: surgery f/u Status: Acute (2) Rectal bleeding Assessment & Plan: Hb is stable. Cosnider colitis, divertciulosis, colon lesion. Rec- colonsocopy Status: Acute (3) Abdominal pain Status: Acute (4) Palpitations Status: Acute
--- NOTE | 2018-08-01 19:32 | CP.PCM.PN ---
<Edgar Siegel - Last Filed: 08/02/18 08:00> Subjective - Date & Time of Evaluation Date of Evaluation: 08/02/18 Time of Evaluation: 07:55 - Subjective Subjective: PGY1 Medicine progress note for Dr. High Pt seen and examined at bedside. Pt is resting comfortably, eating breakfast. He has no complaints at this time. Denies fever, chills, chest pain, abdominal pain, n/v/d, hematochezia, melena, dizziness, headache, lightheadedness. He hasd two bowel movements yesterday, which were normal. Pt understands he is having a colonoscopy tomorrow, asked me about procedure. I informed him about how a colonoscopy is done and why he is having it done, he understands. Objective - Vital Signs/Intake and Output Vital Signs (last 24 hours): Temp Pulse Resp BP Pulse Ox 97.9 F 68 20 94/56 L 94 L 08/01/18 16:00 08/01/18 16:00 08/01/18 16:00 08/01/18 16:00 08/01/18 16:00 Intake and Output: 08/01/18 08/02/18 18:59 06:59 Intake Total 500 Balance 500 - Medications Medications: Current Medications Guaifenesin (Mucinex La) 600 mg PO BID [facility] Last Admin: 08/01/18 18:22 Dose: 600 mg Ondansetron HCl (Zofran Inj) 4 mg IVP Q4 PRN PRN Reason: Nausea/Vomiting Oxycodone/Acetaminophen (Percocet 5/325 Mg Tab) 1 tab PO Q4H PRN PRN Reason: Pain, moderate (4-7) Stop: 08/01/18 23:22 Pantoprazole Sodium (Protonix Inj) 40 mg IVP DAILY [facility] Last Admin: 08/01/18 10:12 Dose: 40 mg Sodium Chloride ([place] Baby Saline 30 Ml) 0 ml GUNNAR Q4H PRN PRN Reason: Nasal congestion Last Admin: 08/01/18 13:43 Dose: 1 spr Tamsulosin HCl (Flomax) 0.4 mg PO DAILY [facility] Last Admin: 08/01/18 10:12 Dose: 0.4 mg - Labs Labs: 08/01/18 06:30 08/01/18 06:30 PT 12.3 SECONDS (9.7-12.2) H 07/30/18 07:50 INR 1.1 07/30/18 07:50 APTT 35 SECONDS (21-34) H 07/30/18 07:50 - Constitutional Appears: Non-toxic, No Acute Distress - Head Exam Head Exam: ATRAUMATIC, NORMAL INSPECTION - Eye Exam Eye Exam: EOMI, Normal appearance - ENT Exam ENT Exam: Mucous Membranes Moist - Respiratory Exam Respiratory Exam: Clear to Ausculation Bilateral, NORMAL BREATHING PATTERN. absent: Rales, Rhonchi, Wheezes - Cardiovascular Exam Cardiovascular Exam: REGULAR RHYTHM, +S1, +S2. absent: Tachycardia - GI/Abdominal Exam GI & Abdominal Exam: Soft, Tenderness (minimal tendernes on deep epigastric palpation), Normal Bowel Sounds. absent: Firm, Rigid, Rebound Additional comments: (+) left inguinal hernia; no erythema, mottling, warmth or tenderness - Extremities Exam Extremities Exam: Full ROM, Normal Inspection. absent: Calf Tenderness, Pedal Edema - Back Exam Back Exam: NORMAL INSPECTION - Neurological Exam Neurological Exam: Alert, Awake - Psychiatric Exam Psychiatric exam: Normal Affect, Normal Mood - Skin Skin Exam: Dry, Normal Color, Warm Assessment and Plan - Assessment and Plan (Free Text) Assessment: Rectal Bleeding - HH stable continue to monitor - CEA 1.1(WNL) - FOBT pending - GI Consult: Dr. Chiang --> help appreciated * Colonoscopy scheduled for Friday (08/03) * Spoke with Dr. Junior - Patient is medically optimized for colonoscopy 08/03/18 Partial SBO 2/2 L incarcerated inguinal hernia - Images: * CT Abdomen/Pelvis (07/29): Bowel containing left inguinal hernia w/o clear evidence of obstruction. Diverticulosis. Prostatic enlargement. Hypoattenuation of liver compatible w/ hepatic steatosis - General Surgery Consult: Dr. Bhat --> help appreciated - Cardiac clearance by Dr. Panda as above - will plan for OR next week after colonoscopy - Medications: * Percocet prn for pain * Zofran prn for nausea History of CAD - Hx of OR x2 - Cardiac Consult: Dr. Junior --> help appreciated - Images: * EKG (07/29): NSR @ 64 bpm * Echo (07/30): LVEF 60-65%, normal systolic function. Mild mitral/tricuspid regurgitation. Mild pulmonary HTN. * Chest Xray: No interval pathology noted. Similar biapical pleural thickening. Osseous changes as above * ECHO (07/31/18): EF 60-65%; left ventricle systolic function is normal; no aortic regurgitation is present. History of HTN - Normotensive - Continue to monitor History of HLD - lipid panel: Total cholesterol 152; LDL 100; HDL 33; hA1c 5.6 Hypertrophic Prostate - Tamsulosin 0.4 mg PO daily - I/Os Prophylaxis - DVT ppx: scds, oral AC contraindicated - GI ppx: protonix Disposition: Pt scheduled for colonscopy tomorrow (08/03). NPO past midnight. Pt explained on expected results of golytely. Surgical intervention planned next week post-colonoscopy <Shania High V - Last Filed: 08/02/18 21:39> Objective - Vital Signs/Intake and Output Vital Signs (last 24 hours): Temp Pulse Resp BP Pulse Ox 97.5 F L 70 20 100/59 L 96 08/02/18 16:10 08/02/18 16:10 08/02/18 16:10 08/02/18 16:10 08/02/18 16:10 Intake and Output: 08/02/18 08/03/18 18:59 06:59 Intake Total 500 Balance 500 - Medications Medications: Current Medications Guaifenesin (Mucinex La) 600 mg PO BID [facility] Last Admin: 08/02/18 17:46 Dose: 600 mg Ondansetron HCl (Zofran Inj) 4 mg IVP Q4 PRN PRN Reason: Nausea/Vomiting Pantoprazole Sodium (Protonix Inj) 40 mg IVP DAILY [facility] Last Admin: 08/02/18 09:35 Dose: 40 mg Sodium Chloride ([place] Baby Saline 30 Ml) 0 ml GUNNAR Q4H PRN PRN Reason: Nasal congestion Last Admin: 08/02/18 09:42 Dose: 1 spr Tamsulosin HCl (Flomax) 0.4 mg PO DAILY [facility] Last Admin: 08/02/18 09:34 Dose: 0.4 mg - Labs Labs: 08/02/18 08:15 08/02/18 08:15 PT 11.6 SECONDS (9.7-12.2) 08/02/18 11:00 INR 1.1 08/02/18 11:00 APTT 35 SECONDS (21-34) H 08/02/18 11:00 Attending/Attestation - Attestation I have personally seen and examined this patient.: Yes I have fully participated in the care of the patient.: Yes I have reviewed all pertinent clinical information, including history, physical exam and plan: Yes Notes (Text): Please note resident note is intended for 08/02/18 at 730AM (not 08/01/18). I saw the patient this morning. He denies acute symptoms except for mild LLQ pain. he reports he used the bathroom earlier today, no blood noted. Patient is aware he is going to receive bowel preparation today for colonoscopy tomorrow with Dr. Chiang. He denies other complaints. Assessment/Plan 1. Rectal Bleeding? Constipation Assessment/Plan * HH stable continue to monitor * CEA 1.1(WNL) * FOBT pending * GI Consult: Dr. Chiang --> help appreciated * Colonoscopy scheduled for Friday (08/03) * Patient to receive bowel preparation today for colonoscopy in the morning. * Spoke with Dr. Junior - Patient is medically optimized for colonoscopy 08/03/18 2. Partial SBO 2/2 L incarcerated inguinal hernia Assessment/Plan * General Surgery Consult: Dr. Bhat --> help appreciated * Preoperative/intraoperative/postoperative management * Cardiology and GI on board * Images: * CT Abdomen/Pelvis (07/29): Bowel containing left inguinal hernia w/o clear evidence of obstruction. Diverticulosis. Prostatic enlargement. Hypoattenuation of liver compatible w/ hepatic steatosis * Medications: * Percocet prn for pain * Zofran prn for nausea 3. History of OR Assessment/Plan * Cardiac Consult: Dr. Junior --> help appreciated - Images: * EKG (07/29): NSR @ 64 bpm * Echo (07/30): LVEF 60-65%, normal systolic function. Mild mitral/tricuspid regurgitation. Mild pulmonary HTN. * Chest Xray: No interval pathology noted. Similar biapical pleural thickening. Osseous changes as above * ECHO (07/31/18): EF 60-65%; left ventricle systolic function is normal; no aortic regurgitation is present. 5. History of HTN Assessment/Plan * monitor 6. History of HLD Assessment/Plan * lipid panel: Total cholesterol 152; LDL 100; HDL 33; hA1c 5.6 7. Hypertrophic Prostate Assessment/Plan - Tamsulosin 0.4 mg PO daily - I/Os 8. Prophylaxis - DVT ppx: scds, chemical anticoagulation contraindication held secondary to rectal bleeding - GI ppx: protonix Disposition: Pt scheduled for colonscopy tomorrow (08/03). NPO past midnight. Pt explained on expected results of golytely. Surgical intervention planned next week post-colonoscopy.
--- NOTE | 2018-08-02 07:09 | CP.PCM.PN ---
Subjective - Date & Time of Evaluation Date of Evaluation: 08/02/18 Time of Evaluation: 06:30 - Subjective Subjective: General Surgery Dr. Bhat Pt S&E @bedside. No acute events overnight. pt has no complaints this AM. denies abd pain, F/C, N/V, D/C, melena, hematochezia. tolerating diet. (+)BM/Flatus. Objective - Vital Signs/Intake and Output Vital Signs (last 24 hours): Temp Pulse Resp BP Pulse Ox 97.8 F 71 20 119/70 96 08/02/18 00:00 08/02/18 00:00 08/02/18 00:00 08/02/18 00:00 08/02/18 00:00 Intake and Output: 08/02/18 08/02/18 06:59 18:59 Intake Total 980 Balance 980 - Medications Medications: Current Medications Guaifenesin (Mucinex La) 600 mg PO BID [facility] Last Admin: 08/01/18 18:22 Dose: 600 mg Ondansetron HCl (Zofran Inj) 4 mg IVP Q4 PRN PRN Reason: Nausea/Vomiting Pantoprazole Sodium (Protonix Inj) 40 mg IVP DAILY [facility] Last Admin: 08/01/18 10:12 Dose: 40 mg Sodium Chloride ([place] Baby Saline 30 Ml) 0 ml GUNNAR Q4H PRN PRN Reason: Nasal congestion Last Admin: 08/01/18 13:43 Dose: 1 spr Tamsulosin HCl (Flomax) 0.4 mg PO DAILY [facility] Last Admin: 08/01/18 10:12 Dose: 0.4 mg - Labs Labs: 08/01/18 06:30 08/01/18 06:30 PT 12.3 SECONDS (9.7-12.2) H 07/30/18 07:50 INR 1.1 07/30/18 07:50 APTT 35 SECONDS (21-34) H 07/30/18 07:50 - Constitutional Appears: Non-toxic, No Acute Distress - Head Exam Head Exam: NORMAL INSPECTION - Eye Exam Eye Exam: Normal appearance - ENT Exam ENT Exam: Mucous Membranes Moist - Respiratory Exam Respiratory Exam: NORMAL BREATHING PATTERN. absent: Accessory Muscle Use, Respiratory Distress - Cardiovascular Exam Cardiovascular Exam: REGULAR RHYTHM. absent: Bradycardia, Tachycardia - GI/Abdominal Exam GI & Abdominal Exam: Soft. absent: Distended, Tenderness - Exam Additional comments: L inguinal hernia reduced - Extremities Exam Extremities Exam: Normal Inspection - Neurological Exam Neurological Exam: Alert, Awake, Oriented x3 - Psychiatric Exam Psychiatric exam: Normal Affect, Normal Mood - Skin Skin Exam: Dry, Intact, Normal Color, Warm Assessment and Plan - Assessment and Plan (Free Text) Assessment: 72 y/o M w/ reduced L inguinal hernia containing bowel and GI bleed Plan: - plan for colonoscopy Friday per GI - OR for hernia repair pending colonoscopy findings - cont medical management - encourage OOb to chair/Amb - GI/DVT PPx Pt discussed w/ Dr. Home Hilton DO PGY3
--- NOTE | 2018-08-02 08:15 | CARD ---
APPROVED REPORT Date of service: 07/29/2018 EKG Measurement Heart [id number] <Conclusion> Normal sinus rhythm Normal ECG
[2018-08-02 08:42] LABS: BASO # 0.1 K/uL (0.0-0.2); BASO % 0.9 % (0.0-2.0); EOS # 0.5 K/uL (0.0-0.7); EOS % 7.3 % (0.0-4.0); HEMOGLOBIN 13.5 g/dL (12.0-18.0); LYMPH % 27.5 % (20.0-40.0); MEAN CELL VOLUME 90.8 fL (80.0-94.0); MEAN CORPUSCULAR HEMOGLOBIN 30.4 pg (27.0-31.0); MEAN CORPUSCULAR HGB CONC 33.5 g/dL (33.0-37.0); MEAN PLATELET VOLUME 7.7 fL (7.2-11.7); MONO # 0.6 K/uL (0.0-0.8); MONO % 8.7 % (0.0-10.0); NEUT # 4.1 K/uL (1.8-7.0); NEUT % 55.6 % (50.0-75.0); NRBC % 0.1 % (0.0-2.0); RBC 4.45 Mil/uL (4.40-5.90); WHITE BLOOD COUNT 7.4 K/uL (4.8-10.8)
[2018-08-02 09:02] LABS: ALB/GLOB RATIO 1.4 (1.0-2.1); ALT/SGPT 21 U/L (21-72); AST/SGOT 24 U/L (17-59); BLOOD UREA NITROGEN 11 mg/dL (9-20); CALCIUM 8.4 mg/dl (8.6-10.4); GFR NON-AFRICAN AMERICAN > 60
[2018-08-02] MEDS: guaiFENesin 600 mg ER Tab PO SCH ×2 (09:34→17:46)
[2018-08-02] MEDS: Sodium Chloride Nasal 0.65% Soln (30ml) NAS PRN (09:42)
[2018-08-02 12:21] LABS: INR 1.1; PROTHROMBIN TIME 11.6 SECONDS (9.7-12.2)
--- NOTE | 2018-08-02 12:30 | CP.PCM.PN ---
Subjective - Date & Time of Evaluation Date of Evaluation: 08/02/18 Time of Evaluation: 12:28 - Subjective Subjective: f/u RB. Covering DR Chiang. Denies cons, diarrhea, RB, melena, fever, chills, Sz, loc, MATOS, cough Objective - Vital Signs/Intake and Output Vital Signs (last 24 hours): Temp Pulse Resp BP Pulse Ox 97.5 F L 72 20 100/60 96 08/02/18 08:50 08/02/18 08:50 08/02/18 08:50 08/02/18 08:50 08/02/18 08:50 Intake and Output: 08/02/18 08/02/18 06:59 18:59 Intake Total 980 Balance 980 - Medications Medications: Current Medications Bisacodyl (Dulcolax) 10 mg PO ONCE ONE Stop: 08/02/18 17:01 Guaifenesin (Mucinex La) 600 mg PO BID [facility] Last Admin: 08/02/18 09:34 Dose: 600 mg Ondansetron HCl (Zofran Inj) 4 mg IVP Q4 PRN PRN Reason: Nausea/Vomiting Pantoprazole Sodium (Protonix Inj) 40 mg IVP DAILY [facility] Last Admin: 08/02/18 09:35 Dose: 40 mg Polyethylene Glycol/Electrolytes (Golytely) 4,000 ml PO ONCE ONE Stop: 08/02/18 19:01 Sodium Chloride ([place] Baby Saline 30 Ml) 0 ml GUNNAR Q4H PRN PRN Reason: Nasal congestion Last Admin: 08/02/18 09:42 Dose: 1 spr Tamsulosin HCl (Flomax) 0.4 mg PO DAILY [facility] Last Admin: 08/02/18 09:34 Dose: 0.4 mg - Labs Labs: 08/02/18 08:15 08/02/18 08:15 PT 11.6 SECONDS (9.7-12.2) 08/02/18 11:00 INR 1.1 08/02/18 11:00 APTT 35 SECONDS (21-34) H 08/02/18 11:00 - Constitutional Appears: Well - Respiratory Exam Respiratory Exam: Clear to Ausculation Bilateral - Cardiovascular Exam Cardiovascular Exam: RRR - GI/Abdominal Exam GI & Abdominal Exam: Soft, Normal Bowel Sounds. absent: Tenderness, Rebound - Extremities Exam Extremities Exam: absent: Pedal Edema - Neurological Exam Neurological Exam: Alert, Awake, Oriented x3 Assessment and Plan (1) Incarcerated left inguinal hernia Status: Acute (2) Rectal bleeding Assessment & Plan: For colonsocopy friday. Status: Acute (3) Abdominal pain Status: Acute (4) Palpitations Status: Acute
[2018-08-02] MEDS ORDERED: Bisacodyl 5mg EC Tab PO ONE (17:00)
[2018-08-02] MEDS ORDERED: Peg-Electrolyte Oral Soln 4L (Golytely) PO ONE (19:00)
[2018-08-03 07:06] LABS: BASO # 0.1 K/uL (0.0-0.2); BASO % 0.9 % (0.0-2.0); EOS # 0.5 K/uL (0.0-0.7); EOS % 6.8 % (0.0-4.0); HEMOGLOBIN 14.2 g/dL (12.0-18.0); LYMPH # 2.3 K/uL (1.0-4.3); LYMPH % 29.8 % (20.0-40.0); MEAN CELL VOLUME 90.2 fL (80.0-94.0); MEAN CORPUSCULAR HEMOGLOBIN 30.2 pg (27.0-31.0); MEAN CORPUSCULAR HGB CONC 33.5 g/dL (33.0-37.0); MEAN PLATELET VOLUME 7.4 fL (7.2-11.7); MONO # 0.6 K/uL (0.0-0.8); MONO % 7.9 % (0.0-10.0); NEUT # 4.3 K/uL (1.8-7.0); NEUT % 54.6 % (50.0-75.0); RBC 4.72 Mil/uL (4.40-5.90); RED CELL DISTRIBUTION WIDTH 13.7 % (11.5-14.5); WHITE BLOOD COUNT 7.8 K/uL (4.8-10.8)
[2018-08-03 07:16] LABS: INR 1.1; PROTHROMBIN TIME 12.1 SECONDS (9.7-12.2)
--- NOTE | 2018-08-03 07:28 | CP.PCM.PN ---
<Jenny Xiong - Last Filed: 08/03/18 19:34> Subjective - Date & Time of Evaluation Date of Evaluation: 08/03/18 Time of Evaluation: 07:27 - Subjective Subjective: Progress Note for Hospitalist service Patient seen and examined at bedside. He states that he would like to eat after his colonoscopy today. He denies fever, chills, headache, dizziness, blurry vision, hearing change, chest pain, shortness of breath, palpitations, abdominal pain, nausea, vomiting, diarrhea, constipation, diarrhea. He states he has not had any bleeding overnight. Objective - Vital Signs/Intake and Output Vital Signs (last 24 hours): Temp Pulse Resp BP Pulse Ox 97.3 F L 71 20 121/76 97 08/03/18 00:00 08/03/18 00:00 08/03/18 00:00 08/03/18 00:00 08/03/18 00:00 Intake and Output: 08/03/18 08/03/18 06:59 18:59 Intake Total 1500 0 Balance 1500 0 - Medications Medications: Current Medications Guaifenesin (Mucinex La) 600 mg PO BID [facility] Last Admin: 08/02/18 17:46 Dose: 600 mg Ondansetron HCl (Zofran Inj) 4 mg IVP Q4 PRN PRN Reason: Nausea/Vomiting Pantoprazole Sodium (Protonix Inj) 40 mg IVP DAILY [facility] Last Admin: 08/02/18 09:35 Dose: 40 mg Sodium Chloride ([place] Baby Saline 30 Ml) 0 ml GUNNAR Q4H PRN PRN Reason: Nasal congestion Last Admin: 08/02/18 09:42 Dose: 1 spr Tamsulosin HCl (Flomax) 0.4 mg PO DAILY [facility] Last Admin: 08/02/18 09:34 Dose: 0.4 mg - Labs Labs: 08/03/18 06:54 08/02/18 08:15 PT 12.1 SECONDS (9.7-12.2) 08/03/18 06:54 INR 1.1 08/03/18 06:54 APTT 34 SECONDS (21-34) 08/03/18 06:54 - Constitutional Appears: Well, No Acute Distress - Head Exam Head Exam: ATRAUMATIC, NORMOCEPHALIC - Eye Exam Eye Exam: EOMI, PERRL - ENT Exam ENT Exam: Mucous Membranes Moist - Neck Exam Neck Exam: Full ROM. absent: Tenderness - Respiratory Exam Respiratory Exam: Clear to Ausculation Bilateral, NORMAL BREATHING PATTERN. absent: Rales, Rhonchi, Wheezes, Respiratory Distress, Stridor - Cardiovascular Exam Cardiovascular Exam: REGULAR RHYTHM, +S1, +S2. absent: Gallop, Rubs, Murmur - GI/Abdominal Exam GI & Abdominal Exam: Soft, Normal Bowel Sounds. absent: Distended, Firm, Guarding, Rigid, Tenderness - Exam Exam: absent: Scrotal Swelling, Testicular Tenderness Additional comments: left inguinal canal no erythema, no tenderness to palpation scrotum non swollen, nontender to palpation. - Extremities Exam Extremities Exam: absent: Calf Tenderness, Pedal Edema - Back Exam Back Exam: absent: CVA tenderness (L), CVA tenderness (R) - Neurological Exam Neurological Exam: Alert, Awake, Oriented x3 - Psychiatric Exam Psychiatric exam: Normal Affect, Normal Mood - Skin Skin Exam: Dry, Intact, Normal Color Assessment and Plan - Assessment and Plan (Free Text) Assessment: 72 year old male with history of CAD, MIx2, HTN, HLD who presented for abdominal pain, found to have partial SBO. Status post colonoscopy today. Plan: Rectal bleeding H/H 14.2/42.5 CEA 1.[address] Chiang Colonoscopy revealed internal hemorrhoids, anal papillae, stool in sigmoid colon, transverse colon and cecum. resume diet. repeat colonoscopy in 6 months. Not bleeding currently Partial SBO 2/2 L incarcerated inguinal hernia - Images: * CT Abdomen/Pelvis (07/29): Bowel containing left inguinal hernia w/o clear evidence of obstruction. Diverticulosis. Prostatic enlargement. Hypoattenuation of liver compatible w/ hepatic steatosis - General Surgery Consult: Dr. Bhat --> help appreciated - Cardiac clearance by Dr. Junior, Case discussed with Dr. Junior, medically optimized for left hernia repair. Plan for OR for left inguinal hernia repair 08/04/18 - Medications: * Zofran prn for nausea History of CAD - Hx of MS x2 - Cardiac Consult: Dr. Junior --> help appreciated - Images: * EKG (07/29): NSR @ 64 bpm * Echo (07/30): LVEF 60-65%, normal systolic function. Mild mitral/tricuspid regurgitation. Mild pulmonary HTN. * Chest Xray: No interval pathology noted. Similar biapical pleural thickening. Osseous changes as above * ECHO (07/31/18): EF 60-65%; left ventricle systolic function is normal; no aortic regurgitation is present. - Spoke to Dr. Junior, patient is medically optimized for surgery 08/04/18 History of HTN - Normotensive - Continue to monitor History of HLD - lipid panel: Total cholesterol 152; LDL 100; HDL 33; hA1c 5.6 Hypertrophic Prostate - Tamsulosin 0.4 mg PO daily - I/Os Nasal congestion -Mucinex 600mg PO BID Prophylaxis - DVT ppx: scds, oral AC contraindicated - GI ppx: protonix Disposition: NPO past midnight for left inguinal repair. Case discussed with Dr. Pro Xiong, PGY1 <Pro Rios - Last Filed: 08/07/18 17:27> Objective - Vital Signs/Intake and Output Vital Signs (last 24 hours): Temp Pulse Resp BP Pulse Ox 97.7 F 87 20 96/63 L 96 08/07/18 16:00 08/07/18 16:00 08/07/18 16:00 08/07/18 16:00 08/07/18 16:00 Intake and Output: 08/07/18 08/07/18 06:59 18:59 Intake Total 590 350 Output Total 450 Balance 140 350 - Medications Medications: Current Medications Guaifenesin (Mucinex La) 600 mg PO BID [facility] Last Admin: 08/07/18 17:13 Dose: 600 mg Heparin Sodium (Porcine) (Heparin) 5,000 units SC Q8 [facility] Last Admin: 08/07/18 13:43 Dose: 5,000 units Ondansetron HCl (Zofran Inj) 4 mg IVP Q4 PRN PRN Reason: Nausea/Vomiting Pantoprazole Sodium (Protonix Ec Tab) 40 mg PO DAILY [facility] Senna/Docusate Sodium (Senokot S 50 Mg-8.6 Mg) 1 tab PO BID [facility] Last Admin: 08/07/18 17:14 Dose: Not Given Simethicone (Mylicon Chew Tab) 80 mg PO Q6H PRN PRN Reason: GI distress Last Admin: 08/05/18 21:28 Dose: 80 mg Sodium Chloride ([place] Baby Saline 30 Ml) 0 ml GUNNAR Q4H PRN PRN Reason: Nasal congestion Last Admin: 08/05/18 10:06 Dose: 1 spr Tamsulosin HCl (Flomax) 0.4 mg PO DAILY [facility] Last Admin: 08/07/18 09:35 Dose: 0.4 mg Tramadol HCl (Ultram) 50 mg PO TID PRN PRN Reason: Pain, moderate (4-7) Last Admin: 08/06/18 15:03 Dose: 50 mg - Labs Labs: 08/07/18 07:11 08/07/18 07:11 PT 11.7 SECONDS (9.7-12.2) 08/04/18 07:26 INR 1.1 08/04/18 07:26 APTT 34 SECONDS (21-34) 08/03/18 06:54 Attending/Attestation - Attestation I have personally seen and examined this patient.: Yes I have fully participated in the care of the patient.: Yes I have reviewed all pertinent clinical information, including history, physical exam and plan: Yes Notes (Text): 08/07/18 17:27 This is a late entry. Care of this patient was gone over in detail with resident Dr. Xiong. Pro Rios D.O.
[2018-08-03 07:55] LABS: ALB/GLOB RATIO 1.5 (1.0-2.1); ALBUMIN 4.2 g/dL (3.5-5.0); ALT/SGPT 30 U/L (21-72); AST/SGOT 39 U/L (17-59); BLOOD UREA NITROGEN 9 mg/dL (9-20); CALCIUM 8.6 mg/dl (8.6-10.4); GFR NON-AFRICAN AMERICAN > 60
[2018-08-03] MEDS ORDERED: Lactated Ringer's 1,000 ML IV ONE (09:10)
[2018-08-03] MEDS ORDERED: Propofol 10 mg/ml Inj (20 ML) ONE ×2 (09:12)
[2018-08-03] MEDS ORDERED: Lidocaine Hydrochloride 5 ML INJ ONE (09:33)
[2018-08-03] MEDS: guaiFENesin 600 mg ER Tab PO SCH ×2 (10:00→17:31)
--- NOTE | 2018-08-03 17:13 | CP.PCM.PCO ---
Physician Communication Note - Physician Communication Note Physician Communication Note: OK with Hernia repair [facility]
--- NOTE | 2018-08-04 07:01 | CP.PCM.PN ---
<Jae Arellano - Last Filed: 08/04/18 19:23> Subjective - Date & Time of Evaluation Date of Evaluation: 08/04/18 Time of Evaluation: 14:00 - Subjective Subjective: PGY-1 [facility] Patient is seen and examined at bedside. Patient was seen right after coming back to his room from left inguinal repair surgery by Dr Bhat. Patient states having tolerable abdominal pain at incision site. Patient admits to some nasal congestion. Patient denies any fever, chills, chest pain, shortness of breath, headaches, coughing, nausea, vomiting, diarrhea or constipation. Objective - Vital Signs/Intake and Output Vital Signs (last 24 hours): Temp Pulse Resp BP Pulse Ox 98 F 76 20 109/62 94 L 08/04/18 00:00 08/04/18 00:00 08/04/18 00:00 08/04/18 00:00 08/04/18 00:00 Intake and Output: 08/04/18 08/04/18 06:59 18:59 Intake Total 200 Output Total 400 Balance -200 - Medications Medications: Current Medications Guaifenesin (Mucinex La) 600 mg PO BID [facility] Last Admin: 08/03/18 17:31 Dose: 600 mg Ondansetron HCl (Zofran Inj) 4 mg IVP Q4 PRN PRN Reason: Nausea/Vomiting Pantoprazole Sodium (Protonix Inj) 40 mg IVP DAILY [facility] Last Admin: 08/03/18 11:24 Dose: 40 mg Sodium Chloride ([place] Baby Saline 30 Ml) 0 ml GUNNAR Q4H PRN PRN Reason: Nasal congestion Last Admin: 08/02/18 09:42 Dose: 1 spr Tamsulosin HCl (Flomax) 0.4 mg PO DAILY [facility] Last Admin: 08/03/18 10:00 Dose: 0.4 mg - Labs Labs: 08/03/18 06:54 08/03/18 06:54 PT 12.1 SECONDS (9.7-12.2) 08/03/18 06:54 INR 1.1 08/03/18 06:54 APTT 34 SECONDS (21-34) 08/03/18 06:54 - Constitutional Appears: Non-toxic, No Acute Distress - Head Exam Head Exam: ATRAUMATIC, NORMAL INSPECTION, NORMOCEPHALIC - Eye Exam Eye Exam: EOMI, Normal appearance - ENT Exam ENT Exam: Mucous Membranes Moist, Normal Exam - Neck Exam Neck Exam: Normal Inspection - Respiratory Exam Respiratory Exam: Clear to Ausculation Bilateral, NORMAL BREATHING PATTERN. absent: Rales, Rhonchi, Wheezes - Cardiovascular Exam Cardiovascular Exam: REGULAR RHYTHM, +S1, +S2 - GI/Abdominal Exam GI & Abdominal Exam: Soft, Normal Bowel Sounds. absent: Distended, Tenderness - Exam Additional comments: left groin dressing clean, dry and intact - Extremities Exam Extremities Exam: Full ROM. absent: Pedal Edema, Tenderness Additional comments: SCDs in place b/l - Back Exam Back Exam: NORMAL INSPECTION - Neurological Exam Neurological Exam: Alert, Awake, Oriented x3 - Psychiatric Exam Psychiatric exam: Normal Affect, Normal Mood - Skin Skin Exam: Dry, Normal Color, Warm Assessment and Plan - Assessment and Plan (Free Text) Assessment: 72 year old male with history of CAD, MIx2, HTN, HLD who presented for abdominal pain, found to have partial SBO due to left incarcerated inguinal hernia, underwent left inguinal hernia repair with mesh on 08/04/18, now pod#0. Plan: Partial SBO 2/2 L incarcerated inguinal hernia - Images: * CT Abdomen/Pelvis (07/29): Bowel containing left inguinal hernia w/o clear evidence of obstruction. Diverticulosis. Prostatic enlargement. Hypoattenuation of liver compatible w/ hepatic steatosis - General Surgery Consult: Dr. Bhat --> help appreciated - Left inguinal hernia repair with mesh done today 08/04/18. EBL 10 ml, no drai ns, post op condition - good - Medications: * Zofran prn for nausea * tramadol 50 mg PO Q6H PRN - Resume regular diet - Incentive spirometer Q1H - patient educated at bedside. Rectal bleeding, resolved H/H continues to be stable CEA 1.1 FOBT - Negative GI consult Dr. Chiang Colonoscopy revealed internal hemorrhoids, anal papillae, stool in sigmoid colon, transverse colon and cecum. resume diet. repeat colonoscopy in 6 months. Not bleeding currently History of CAD - Hx of CT x2 - Cardiac Consult: Dr. Junior --> help appreciated - Images: * EKG (07/29): NSR @ 64 bpm * Echo (07/30): LVEF 60-65%, normal systolic function. Mild mitral/tricuspid regurgitation. Mild pulmonary HTN. * Chest Xray: No interval pathology noted. Similar biapical pleural thickening. Osseous changes as above * ECHO (07/31/18): EF 60-65%; left ventricle systolic function is normal; no aortic regurgitation is present. - Spoke to Dr. Junior, patient is medically optimized for surgery 08/04/18 History of HTN - Normotensive - Continue to monitor History of HLD - lipid panel: Total cholesterol 152; LDL 100; HDL 33; hA1c 5.6 Hypertrophic Prostate - Tamsulosin 0.4 mg PO daily - I/Os Nasal congestion -Mucinex 600mg PO BID - Nasal saline spay Prophylaxis - DVT ppx: scds, heparin 5000 SQ Q8H - GI ppx: protonix Plan discussed with Dr Cj Arellano, PGY-1 <Pro Rios - Last Filed: 08/07/18 17:27> Objective - Vital Signs/Intake and Output Vital Signs (last 24 hours): Temp Pulse Resp BP Pulse Ox 97.7 F 87 20 96/63 L 96 08/07/18 16:00 08/07/18 16:00 08/07/18 16:00 08/07/18 16:00 08/07/18 16:00 Intake and Output: 08/07/18 08/07/18 06:59 18:59 Intake Total 590 350 Output Total 450 Balance 140 350 - Medications Medications: Current Medications Guaifenesin (Mucinex La) 600 mg PO BID [facility] Last Admin: 08/07/18 17:13 Dose: 600 mg Heparin Sodium (Porcine) (Heparin) 5,000 units SC Q8 [facility] Last Admin: 08/07/18 13:43 Dose: 5,000 units Ondansetron HCl (Zofran Inj) 4 mg IVP Q4 PRN PRN Reason: Nausea/Vomiting Pantoprazole Sodium (Protonix Ec Tab) 40 mg PO DAILY [facility] Senna/Docusate Sodium (Senokot S 50 Mg-8.6 Mg) 1 tab PO BID [facility] Last Admin: 08/07/18 17:14 Dose: Not Given Simethicone (Mylicon Chew Tab) 80 mg PO Q6H PRN PRN Reason: GI distress Last Admin: 08/05/18 21:28 Dose: 80 mg Sodium Chloride ([place] Baby Saline 30 Ml) 0 ml GUNNAR Q4H PRN PRN Reason: Nasal congestion Last Admin: 08/05/18 10:06 Dose: 1 spr Tamsulosin HCl (Flomax) 0.4 mg PO DAILY [facility] Last Admin: 08/07/18 09:35 Dose: 0.4 mg Tramadol HCl (Ultram) 50 mg PO TID PRN PRN Reason: Pain, moderate (4-7) Last Admin: 08/06/18 15:03 Dose: 50 mg - Labs Labs: 08/07/18 07:11 08/07/18 07:11 PT 11.7 SECONDS (9.7-12.2) 08/04/18 07:26 INR 1.1 08/04/18 07:26 APTT 34 SECONDS (21-34) 08/03/18 06:54 Attending/Attestation - Attestation I have personally seen and examined this patient.: Yes I have fully participated in the care of the patient.: Yes I have reviewed all pertinent clinical information, including history, physical exam and plan: Yes Notes (Text): 08/07/18 17:26 This is a late entry. Care of this patient was gone over in detail with resident Dr. Xiong. Pro Rios D.O.
[2018-08-04 07:45] LABS: INR 1.1; PROTHROMBIN TIME 11.7 SECONDS (9.7-12.2)
[2018-08-04 07:46] LABS: BASO # 0.1 K/uL (0.0-0.2); BASO % 0.9 % (0.0-2.0); EOS # 0.5 K/uL (0.0-0.7); EOS % 6.8 % (0.0-4.0); HEMOGLOBIN 14.1 g/dL (12.0-18.0); LYMPH # 2.4 K/uL (1.0-4.3); LYMPH % 32.4 % (20.0-40.0); MEAN CELL VOLUME 90.8 fL (80.0-94.0); MEAN CORPUSCULAR HEMOGLOBIN 30.4 pg (27.0-31.0); MEAN CORPUSCULAR HGB CONC 33.5 g/dL (33.0-37.0); MEAN PLATELET VOLUME 7.7 fL (7.2-11.7); MONO # 0.5 K/uL (0.0-0.8); MONO % 6.8 % (0.0-10.0); NEUT # 3.9 K/uL (1.8-7.0); NEUT % 53.1 % (50.0-75.0); RBC 4.63 Mil/uL (4.40-5.90); RED CELL DISTRIBUTION WIDTH 13.6 % (11.5-14.5); WHITE BLOOD COUNT 7.3 K/uL (4.8-10.8)
[2018-08-04 08:41] LABS: ALB/GLOB RATIO 1.4 (1.0-2.1); ALBUMIN 4.2 g/dL (3.5-5.0); ALT/SGPT 25 U/L (21-72); AST/SGOT 27 U/L (17-59); BLOOD UREA NITROGEN 13 mg/dL (9-20); CALCIUM 8.3 mg/dl (8.6-10.4); GFR NON-AFRICAN AMERICAN > 60
[2018-08-04] MEDS: guaiFENesin 600 mg ER Tab PO SCH ×2 (09:36→17:37)
[2018-08-04] MEDS: Sodium Chloride Nasal 0.65% Soln (30ml) NAS PRN (09:40)
[2018-08-04] MEDS ORDERED: Ciprofloxacin 400mg/200ml D5W 400 MG/200 ML BAG IVPB ONE (11:23)
[2018-08-04] MEDS ORDERED: Bupivacaine-Epi 0.5%-1:200,000 PF Inj ONE (11:23)
[2018-08-04] MEDS ORDERED: Propofol 10 mg/ml Inj (20 ML) ONE (11:38)
[2018-08-04] MEDS ORDERED: Succinylcholine Chloride 20 mg/ml Syr (5 ml) IV ONE (11:39)
[2018-08-04] MEDS ORDERED: Rocuronium 10 mg/ml (10 ml) ONE (11:39)
[2018-08-04] MEDS ORDERED: Phenylephrine 10 mg/ml Inj ONE (11:53)
[2018-08-04] MEDS ORDERED: Neostigmine 1:1000 (1 mg/ml) Inj ONE (12:15)
--- NOTE | 2018-08-04 12:39 | PCM.SURG1 ---
Surgeon's Initial Post Op Note - Surgeon's Notes Surgeon: Dr. Bhat Mechanic Welder: Dr. Garces PGY4 Type of Anesthesia: General Endo Anesthesia Administered By: Cristian Pre-Operative Diagnosis: Left Inguinal hernia Operative Findings: same Post-Operative Diagnosis: same Operation Performed: Left Inguinal hernia repair with mesh Specimen/Specimens Removed: hernia sac, cord lipoma Estimated Blood Loss: EBL {In ML}: 10 Blood Products Given: N/A Drains Used: No Drains Post-Op Condition: Good Date of Surgery/Procedure: 08/04/18 Time of Surgery/Procedure: 12:39
[2018-08-04] MEDS ORDERED: Lactated Ringer's 500 ML IV ONE (14:20)
[2018-08-04 14:55] VITALS: RESP 20
--- NOTE | 2018-08-04 19:20 | PN ---
DATE: 08/04/2018 SUBJECTIVE: The patient is seen in the recovery room following his left inguinal hernia repair. The patient denies any chest pain or shortness of breath. He is hemodynamically stable and in sinus rhythm on the monitor. PHYSICAL EXAMINATION: VITAL SIGNS: Blood pressure 107/62, heart rate 62, temperature 97.9, respirations 16. HEENT: Normocephalic. CHEST: Clear. HEART: S1 and S2, regular. EXTREMITIES: No edema. LABORATORY DATA: Today's hemoglobin, hematocrit, white count, and platelet count are within normal limits. Today's SMA-7 is within normal limits. ASSESSMENT: Status post left inguinal hernia repair. RECOMMENDATIONS: Continue current medical management including IV Protonix and IV Zofran p.r.n. Obtain a postoperative 12-lead EKG. Steven Junior MD
[2018-08-05 07:15] LABS: BASO % 0.4 % (0.0-2.0); EOS # 0.3 K/uL (0.0-0.7); EOS % 2.8 % (0.0-4.0); HEMOGLOBIN 13.6 g/dL (12.0-18.0); LYMPH % 19.9 % (20.0-40.0); MEAN CORPUSCULAR HEMOGLOBIN 30.3 pg (27.0-31.0); MEAN CORPUSCULAR HGB CONC 33.3 g/dL (33.0-37.0); MEAN PLATELET VOLUME 7.7 fL (7.2-11.7); MONO # 0.8 K/uL (0.0-0.8); MONO % 8.1 % (0.0-10.0); NEUT # 7.1 K/uL (1.8-7.0); NEUT % 68.8 % (50.0-75.0); RBC 4.5 Mil/uL (4.40-5.90); RED CELL DISTRIBUTION WIDTH 13.7 % (11.5-14.5); WHITE BLOOD COUNT 10.3 K/uL (4.8-10.8)
--- NOTE | 2018-08-05 07:22 | CP.PCM.PN ---
<Jenny Xiong - Last Filed: 08/05/18 20:26> Subjective - Date & Time of Evaluation Date of Evaluation: 08/05/18 Time of Evaluation: 07:21 - Subjective Subjective: Progress Note for Hospitalist service Patient seen and examined at bedside. He states that he has some abdominal pain after his left inguinal hernia repair. He has been using his incentive spirometer at bedside. He denies fevers, chills, chest pain, shortness of breath, headache, dizziness, nausea, vomiting. He states he has been feeling very gassy and has been passing gas. He has not had a bowel movement yet. Objective - Vital Signs/Intake and Output Vital Signs (last 24 hours): Temp Pulse Resp BP Pulse Ox 99.8 F H 97 H 20 105/60 94 L 08/05/18 00:00 08/05/18 00:00 08/05/18 00:00 08/05/18 00:00 08/05/18 00:00 Intake and Output: 08/05/18 08/05/18 06:59 18:59 Intake Total 350 240 Output Total 250 550 Balance 100 -310 - Medications Medications: Current Medications Guaifenesin (Mucinex La) 600 mg PO BID [facility] Last Admin: 08/04/18 17:37 Dose: 600 mg Heparin Sodium (Porcine) (Heparin) 5,000 units SC Q8 [facility] Last Admin: 08/05/18 06:14 Dose: 5,000 units Ondansetron HCl (Zofran Inj) 4 mg IVP Q4 PRN PRN Reason: Nausea/Vomiting Pantoprazole Sodium (Protonix Inj) 40 mg IVP DAILY [facility] Last Admin: 08/04/18 09:40 Dose: 40 mg Sodium Chloride ([place] Baby Saline 30 Ml) 0 ml GUNNAR Q4H PRN PRN Reason: Nasal congestion Last Admin: 08/04/18 09:40 Dose: 1 spr Tamsulosin HCl (Flomax) 0.4 mg PO DAILY [facility] Last Admin: 08/04/18 09:36 Dose: Not Given Tramadol HCl (Ultram) 50 mg PO Q6H PRN PRN Reason: Pain, moderate (4-7) Last Admin: 08/05/18 01:24 Dose: 50 mg - Labs Labs: 08/04/18 07:26 08/04/18 07:26 PT 11.7 SECONDS (9.7-12.2) 08/04/18 07:26 INR 1.1 08/04/18 07:26 APTT 34 SECONDS (21-34) 08/03/18 06:54 - Constitutional Appears: Well, Non-toxic, No Acute Distress - Head Exam Head Exam: ATRAUMATIC, NORMOCEPHALIC - Eye Exam Eye Exam: EOMI, PERRL - ENT Exam ENT Exam: Mucous Membranes Moist - Neck Exam Neck Exam: Full ROM. absent: Tenderness - Respiratory Exam Respiratory Exam: Clear to Ausculation Bilateral, NORMAL BREATHING PATTERN. absent: Rales, Rhonchi, Wheezes, Respiratory Distress - Cardiovascular Exam Cardiovascular Exam: REGULAR RHYTHM, +S1, +S2. absent: Gallop, Rubs, Murmur - GI/Abdominal Exam GI & Abdominal Exam: Soft, Tenderness (Mild diffuse tenderness ), Normal Bowel Sounds. absent: Firm, Guarding, Rigid - Exam Additional comments: Left groin dressing, clean dry intact - Extremities Exam Extremities Exam: absent: Calf Tenderness, Pedal Edema - Neurological Exam Neurological Exam: Alert, Awake, Oriented x3 - Psychiatric Exam Psychiatric exam: Normal Affect, Normal Mood - Skin Skin Exam: Dry, Intact, Warm Assessment and Plan - Assessment and Plan (Free Text) Assessment: 72 year old male with history of CAD, MIx2, HTN, HLD who presented for abdominal pain, found to have partial SBO due to left incarcerated inguinal hernia, underwent left inguinal hernia repair with mesh on 08/04/18, POD 1. Plan: Partial SBO 2/2 L incarcerated inguinal hernia - Images: * CT Abdomen/Pelvis (07/29): Bowel containing left inguinal hernia w/o clear evidence of obstruction. Diverticulosis. Prostatic enlargement. Hypoattenuation of liver compatible w/ hepatic steatosis - General Surgery Consult: Dr. Bhat --> help appreciated - Left inguinal hernia repair with mesh 08/04/18. EBL 10 ml, no drain - Medications: * Zofran prn for nausea * tramadol 50 mg PO Q6H PRN * simethicone 80mg Q6 PRN - Resume regular diet - Incentive spirometer Q1H - patient educated at bedside. - Obstructive series ordered, patient's abdominal pain improved with Percocet and Simethicone. Patient passed gas after ambulation Rectal bleeding, resolved H/H stable CEA 1.1 FOBT - Negative GI consult Dr. Chiang Colonoscopy revealed internal hemorrhoids, anal papillae, stool in sigmoid colon, transverse colon and cecum. resume diet. repeat colonoscopy in 6 months. Not bleeding currently History of CAD - Hx of [place] x2 - Cardiac Consult: Dr. Junior --> help appreciated - Images: * EKG (07/29): NSR @ 64 bpm * Echo (07/30): LVEF 60-65%, normal systolic function. Mild mitral/tricuspid regurgitation. Mild pulmonary HTN. * Chest Xray: No interval pathology noted. Similar biapical pleural thickening. Osseous changes as above * ECHO (07/31/18): EF 60-65%; left ventricle systolic function is normal; no aortic regurgitation is present. - Spoke to Dr. Junior, patient is medically optimized for surgery 08/04/18 History of HTN - Normotensive - Continue to monitor History of HLD - lipid panel: Total cholesterol 152; LDL 100; HDL 33; hA1c 5.6 Hypertrophic Prostate - Tamsulosin 0.4 mg PO daily - I/Os Nasal congestion -Mucinex 600mg PO BID - Nasal saline spay Prophylaxis - DVT ppx: scds, heparin 5000 SQ Q8H - GI ppx: protonix Dispo: Pending discharge instructions for follow up with surgery. Patient to be discharged back to [facility] in [place] as per Case Management [facility] as he has been living there. Case discussed with Dr. Pro Xiong, PGY1 <Pro Rios - Last Filed: 08/07/18 17:26> Objective - Vital Signs/Intake and Output Vital Signs (last 24 hours): Temp Pulse Resp BP Pulse Ox 97.7 F 87 20 96/63 L 96 08/07/18 16:00 08/07/18 16:00 08/07/18 16:00 08/07/18 16:00 08/07/18 16:00 Intake and Output: 08/07/18 08/07/18 06:59 18:59 Intake Total 590 350 Output Total 450 Balance 140 350 - Medications Medications: Current Medications Guaifenesin (Mucinex La) 600 mg PO BID [facility] Last Admin: 08/07/18 17:13 Dose: 600 mg Heparin Sodium (Porcine) (Heparin) 5,000 units SC Q8 [facility] Last Admin: 08/07/18 13:43 Dose: 5,000 units Ondansetron HCl (Zofran Inj) 4 mg IVP Q4 PRN PRN Reason: Nausea/Vomiting Pantoprazole Sodium (Protonix Ec Tab) 40 mg PO DAILY [facility] Senna/Docusate Sodium (Senokot S 50 Mg-8.6 Mg) 1 tab PO BID [facility] Last Admin: 08/07/18 17:14 Dose: Not Given Simethicone (Mylicon Chew Tab) 80 mg PO Q6H PRN PRN Reason: GI distress Last Admin: 08/05/18 21:28 Dose: 80 mg Sodium Chloride ([place] Baby Saline 30 Ml) 0 ml GUNNAR Q4H PRN PRN Reason: Nasal congestion Last Admin: 08/05/18 10:06 Dose: 1 spr Tamsulosin HCl (Flomax) 0.4 mg PO DAILY [facility] Last Admin: 08/07/18 09:35 Dose: 0.4 mg Tramadol HCl (Ultram) 50 mg PO TID PRN PRN Reason: Pain, moderate (4-7) Last Admin: 08/06/18 15:03 Dose: 50 mg - Labs Labs: 08/07/18 07:11 08/07/18 07:11 PT 11.7 SECONDS (9.7-12.2) 08/04/18 07:26 INR 1.1 08/04/18 07:26 APTT 34 SECONDS (21-34) 08/03/18 06:54 Attending/Attestation - Attestation I have personally seen and examined this patient.: Yes I have fully participated in the care of the patient.: Yes I have reviewed all pertinent clinical information, including history, physical exam and plan: Yes Notes (Text): 08/07/18 17:26 This is a late entry. Care of this patient was gone over in detail with resident Dr. Xiong. Pro Rios D.O.
--- NOTE | 2018-08-05 08:10 | OP ---
PROCEDURE DATE: 08/04/2018 PROCEDURE: Left inguinal hernia repair. SURGEON: Yasir Bhat MD ELECTRICAL TEST TECHNICIAN: Annika Garces DO, PGY-4 ANESTHESIOLOGIST: Dr. Foster. TYPE OF ANESTHESIA: General. INDICATIONS FOR PROCEDURE: The patient is a 72-year-old male who presented to the hospital with an incarcerated left inguinal hernia containing sigmoid colon. The hernia was reduced upon admission and the patient went for colonoscopy which was negative for any pathology. The patient subsequently was cleared by Cardiology for hernia repair and was taken to the operating room for a left inguinal hernia repair. DESCRIPTION OF PROCEDURE: The patient was placed in the operating table in the supine position. Time-out was performed verifying the correct patient, procedure, site and positioning prior to beginning the procedure. Skin wheals were raised along the proposed skin incision as well as lateral to the site of the incision just medial to the anterior superior iliac spine. An incision was made in the natural skin crease just above the area of the inguinal canal. The dissection was deepened through Issac's and Camper's fascia with electrocautery until the aponeurosis of the external oblique was encountered. This was incised and opened up to the external ring in the direction of its fibers. Flaps of the external oblique were developed cephalad and inferiorly. The cord was then identified and gently dissected free at the pubic tubercle and encircled with a Parvez drain. Attention was then directed to the anteromedial aspect of the cord where an indirect hernia sac was identified. The sac was carefully dissected free off the cord down to the level of the internal ring. The vas and testicular vessels were identified and protected from harm's way. The sac was opened and contents were reduced and finger was passed into the peritoneal cavity, and the floor of the inguinal canal was assessed and there was also found to be an area of direct defect as well. The sac was suture ligated with an 0 Vicryl suture. Redundant sac was excised and submitted for pathology. The stump of the sac was allowed to retract into the abdomen. A polypropylene mesh plug was placed into the internal ring and the transversalis fascia was closed on top of this plug. Attention was then directed to the floor of the canal which appeared to be grossly weakened. The floor was approximated with additional interrupted 0 Vicryl sutures. A flat polypropylene mesh was then cut to the appropriate size with an oval medial portion and longitudinal lateral opening. Beginning at the pubic tubercle the mesh was sutured to the inguinal ligament inferiorly and the conjoint tendon superiorly using interrupted 0 Vicryl suture. Care was taken to assure that the mesh was placed in a relaxed fashion and to avoid any extensive tension that no neurovascular structures were caught in the repair. Laterally the tails of the mesh were crossed and the internal ring was recreated allowing for passage of the surgeon's fifth fingertip. Hemostasis was again checked. The Parvez drain was removed. The external oblique aponeurosis was closed with a running suture of 0 Vicryl. Camper's and Issac's fascia was approximated with 0 Vicryl suture, and the skin was then closed with subcuticular suture of 4-0 Monocryl. Topical skin adhesive was applied. The patient was extubated and taken to the recovery room in a stable condition. Annika Garces DO Yasir Bhat MD
[2018-08-05] MEDS: guaiFENesin 600 mg ER Tab PO SCH ×2 (10:06→17:24)
[2018-08-05] MEDS: Sodium Chloride Nasal 0.65% Soln (30ml) NAS PRN (10:06)
--- NOTE | 2018-08-05 12:02 | CP.PCM.PN ---
Subjective - Date & Time of Evaluation Date of Evaluation: 08/05/18 Time of Evaluation: 09:05 - Subjective Subjective: Progress note for Dr. Bhat. Patient seen and examined at bedside. POD 1 s/p Left Inguinal hernia repair with mesh. Patient complains of pain to L inguinal area with no improvement despite medication. Patient is tolerating liquids and is voiding. Denies bowel movement. Patient denies fever, chills, nausea, and vomiting. Objective - Vital Signs/Intake and Output Vital Signs (last 24 hours): Temp Pulse Resp BP Pulse Ox 98.0 F 82 20 100/64 95 08/05/18 08:00 08/05/18 08:00 08/05/18 08:00 08/05/18 08:00 08/05/18 08:00 Intake and Output: 08/05/18 08/05/18 06:59 18:59 Intake Total 350 240 Output Total 250 550 Balance 100 -310 - Medications Medications: Current Medications Guaifenesin (Mucinex La) 600 mg PO BID [facility] Last Admin: 08/05/18 10:06 Dose: 600 mg Heparin Sodium (Porcine) (Heparin) 5,000 units SC Q8 [facility] Last Admin: 08/05/18 06:14 Dose: 5,000 units Ondansetron HCl (Zofran Inj) 4 mg IVP Q4 PRN PRN Reason: Nausea/Vomiting Oxycodone/Acetaminophen (Percocet 5/325 Mg Tab) 1 tab PO Q6H PRN PRN Reason: Pain, moderate (4-7) Stop: 08/08/18 11:46 Pantoprazole Sodium (Protonix Inj) 40 mg IVP DAILY [facility] Last Admin: 08/05/18 10:03 Dose: 40 mg Simethicone (Mylicon Chew Tab) 80 mg PO Q6H PRN PRN Reason: GI distress Sodium Chloride ([place] Baby Saline 30 Ml) 0 ml GUNNAR Q4H PRN PRN Reason: Nasal congestion Last Admin: 08/05/18 10:06 Dose: 1 spr Tamsulosin HCl (Flomax) 0.4 mg PO DAILY [facility] Last Admin: 08/05/18 10:06 Dose: 0.4 mg - Labs Labs: 08/05/18 07:04 08/04/18 07:26 PT 11.7 SECONDS (9.7-12.2) 08/04/18 07:26 INR 1.1 08/04/18 07:26 APTT 34 SECONDS (21-34) 08/03/18 06:54 - Constitutional Appears: Non-toxic, No Acute Distress - Head Exam Head Exam: ATRAUMATIC, NORMOCEPHALIC - Eye Exam Eye Exam: Normal appearance - ENT Exam ENT Exam: Mucous Membranes Moist - Neck Exam Neck Exam: Normal Inspection - Respiratory Exam Respiratory Exam: NORMAL BREATHING PATTERN. absent: Respiratory Distress - GI/Abdominal Exam GI & Abdominal Exam: Soft, Tenderness (mild tenderness to palpation of L inginal area) Additional comments: L groin dressing c/d/i - Neurological Exam Neurological Exam: Alert, Awake, Oriented x3 - Psychiatric Exam Psychiatric exam: Normal Affect, Normal Mood - Skin Skin Exam: Dry, Normal Color, Warm Assessment and Plan - Assessment and Plan (Free Text) Assessment: 72 year old male POD 1 s/p Left Inguinal hernia repair with mesh Plan: -control pain -encourage OOB/ambulation -Clear for discharge from surgical perspective. Further recs as per Dr. Bhat. Renee Grider, PGY-1
[2018-08-05] MEDS: Simethicone 80 mg Chewtab PO PRN ×2 (12:47→21:28)
[2018-08-05] MEDS: Oxycodone/Acetaminophen 5/325 mg Tab PO PRN ×2 (12:47→20:37)
--- NOTE | 2018-08-05 21:40 | PN ---
DATE: 08/05/2018 SUBJECTIVE: The patient denies any chest pain or shortness of breath. PHYSICAL EXAMINATION: VITAL SIGNS: Blood pressure 100/64, heart rate 82, temperature 98, and respirations 20. HEENT: Normocephalic. CHEST: Clear. HEART: S1, S2 regular. EXTREMITIES: No edema. LABORATORY DATA: Today's hemoglobin and hematocrit, white count, and platelet count are within normal limits. Today's SMA-7 is within normal limits. ASSESSMENT: Status post hernia repair. RECOMMENDATIONS: Continue current subcutaneous heparin 5000 units every 8 hours and IV Protonix 40 mg daily. He did request postoperative EKGs; however, it has not been posted on the database, and I would re-order another one. Steven Junior MD
[2018-08-06] MEDS: Oxycodone/Acetaminophen 5/325 mg Tab PO PRN (05:23)
[2018-08-06 08:00] LABS: BASO # 0.1 K/uL (0.0-0.2); BASO % 0.7 % (0.0-2.0); EOS # 0.3 K/uL (0.0-0.7); EOS % 2.9 % (0.0-4.0); HEMOGLOBIN 13.6 g/dL (12.0-18.0); LYMPH # 1.6 K/uL (1.0-4.3); LYMPH % 15.1 % (20.0-40.0); MEAN CELL VOLUME 89.8 fL (80.0-94.0); MEAN CORPUSCULAR HEMOGLOBIN 30.5 pg (27.0-31.0); MEAN PLATELET VOLUME 7.6 fL (7.2-11.7); MONO # 0.9 K/uL (0.0-0.8); MONO % 8.9 % (0.0-10.0); NEUT # 7.5 K/uL (1.8-7.0); NEUT % 72.4 % (50.0-75.0); RBC 4.45 Mil/uL (4.40-5.90); RED CELL DISTRIBUTION WIDTH 13.6 % (11.5-14.5); WHITE BLOOD COUNT 10.3 K/uL (4.8-10.8)
[2018-08-06 08:40] LABS: ALB/GLOB RATIO 1.4 (1.0-2.1); ALBUMIN 4.1 g/dL (3.5-5.0); ALT/SGPT 16 U/L (21-72); AST/SGOT 23 U/L (17-59); BLOOD UREA NITROGEN 13 mg/dL (9-20); CALCIUM 8.6 mg/dl (8.6-10.4); GFR NON-AFRICAN AMERICAN > 60
--- NOTE | 2018-08-06 09:09 | RAD ---
Date of service: 08/05/2018 PROCEDURE: Radiographs of the chest and abdomen (obstructive series) HISTORY: abdominal pain COMPARISON: CT abdomen and pelvic report July 29 2018 noted TECHNIQUE: AP radiograph of the chest, with upright and supine radiographs of the abdomen. FINDINGS: CHEST: Lungs: No consolidation. Diagonal discoid atelectasis and/or fibrosis right mid lower lung zone. Cardiovascular: Normal size heart. No pulmonary vascular congestion. There is presence of aortic atherosclerotic calcification on x-ray. Pleura: No pleural fluid. No pneumothorax. Other findings: Thoracic spondylosis. ABDOMEN AND PELVIS: Bowel: Extensive stool retention right colon noted. Right colonic caliber specially transverse colon and right hepatic flexure appear distended chronicity unknown. Many small bowel loops in the left abdomen are dilated. A distal small bowel obstruction needs to be considered. A concomitant left colonic obstruction/partial also needs to be considered. Reference to a left groin bowel containing hernia without obstruction on the after mentioned CT study noted. Interval obstruction now is a consideration. Free air: None. Bones: Left L4-5 facet hypertrophic arthrosis. Other findings: None. IMPRESSION: No suspect pulmonary infiltrate. Probable confluent bronchovascular markings markings over left heart border. Incidental thread-like discoid atelectasis and/or scarring. Dilated small bowel loops with prominent stool filled right colon. Given the additional history a hernia repair on 08/04/2018 gleaned from the care taking nurse, the above findings are most likely related to a post operative ileus. Clinical correlation /continued follow-up advised. Comments these findings were called up to the floor and directly discussed with the nurse taking care of this patient Leonor at approximately 8 55 am on 08/06/2018. From my conversation with this nurse, I learned that the patient had hernia repair on 08/04/2018
--- NOTE | 2018-08-06 09:15 | CP.PCM.PN ---
Subjective - Date & Time of Evaluation Date of Evaluation: 08/06/18 Time of Evaluation: 09:12 - Subjective Subjective: Progress note for Dr. Bhat. Patient seen and examined. POD 2 s/p Left Inguinal hernia repair with mesh. Abdominal pain and testicular pain improved. dressings taken down. Incision C/D/I with steri-strips in place. tolerating regular diet. + BM and flatus. Denies fevers, chills, chest pain, shortness of breath Objective - Vital Signs/Intake and Output Vital Signs (last 24 hours): Temp Pulse Resp BP Pulse Ox 98.6 F 83 20 101/70 97 08/06/18 08:00 08/06/18 08:00 08/06/18 08:00 08/06/18 08:00 08/06/18 08:00 Intake and Output: 08/06/18 08/06/18 06:59 18:59 Intake Total 610 Output Total 300 Balance 310 - Medications Medications: Current Medications Guaifenesin (Mucinex La) 600 mg PO BID [facility] Last Admin: 08/05/18 17:24 Dose: 600 mg Heparin Sodium (Porcine) (Heparin) 5,000 units SC Q8 [facility] Last Admin: 08/06/18 05:19 Dose: 5,000 units Ondansetron HCl (Zofran Inj) 4 mg IVP Q4 PRN PRN Reason: Nausea/Vomiting Oxycodone/Acetaminophen (Percocet 5/325 Mg Tab) 1 tab PO Q6H PRN PRN Reason: Pain, moderate (4-7) Stop: 08/08/18 11:46 Last Admin: 08/06/18 05:23 Dose: 1 tab Pantoprazole Sodium (Protonix Inj) 40 mg IVP DAILY [facility] Last Admin: 08/05/18 10:03 Dose: 40 mg Simethicone (Mylicon Chew Tab) 80 mg PO Q6H PRN PRN Reason: GI distress Last Admin: 08/05/18 21:28 Dose: 80 mg Sodium Chloride ([place] Baby Saline 30 Ml) 0 ml GUNNAR Q4H PRN PRN Reason: Nasal congestion Last Admin: 08/05/18 10:06 Dose: 1 spr Tamsulosin HCl (Flomax) 0.4 mg PO DAILY [facility] Last Admin: 08/05/18 10:06 Dose: 0.4 mg - Labs Labs: 08/06/18 07:46 08/06/18 07:46 PT 11.7 SECONDS (9.7-12.2) 08/04/18 07:26 INR 1.1 08/04/18 07:26 APTT 34 SECONDS (21-34) 08/03/18 06:54 - Constitutional Appears: Non-toxic, No Acute Distress - Head Exam Head Exam: ATRAUMATIC - Eye Exam Eye Exam: EOMI. absent: Scleral icterus - ENT Exam ENT Exam: Mucous Membranes Moist - Respiratory Exam Respiratory Exam: NORMAL BREATHING PATTERN. absent: Accessory Muscle Use, Respiratory Distress - Cardiovascular Exam Cardiovascular Exam: REGULAR RHYTHM. absent: Bradycardia, Tachycardia - GI/Abdominal Exam GI & Abdominal Exam: Soft. absent: Distended, Firm, Guarding, Rigid, Tenderness Additional comments: Left lower incision C/D/I. Steri-inplace no palpable hematoma - Extremities Exam Extremities Exam: Normal Inspection. absent: Calf Tenderness - Neurological Exam Neurological Exam: Alert, Awake, Oriented x3 - Psychiatric Exam Psychiatric exam: Normal Mood - Skin Skin Exam: Warm Assessment and Plan - Assessment and Plan (Free Text) Assessment: 72M POD 2 s/p Left Inguinal hernia repair with mesh Plan: - PO analgesia - recommend ambulation - no heavy lifiting greater than 15lbs - cleared for discharge form surgical standpoint - further recs per Dr. Bhat surgical attending PGY2
[2018-08-06] MEDS: guaiFENesin 600 mg ER Tab PO SCH ×2 (10:04→17:15)
--- NOTE | 2018-08-06 11:44 | CP.PCM.PN ---
<Jenny Xiong - Last Filed: 08/06/18 17:46> Subjective - Date & Time of Evaluation Date of Evaluation: 08/06/18 Time of Evaluation: 11:44 - Subjective Subjective: Progress Note for Hospitalist service Patient seen and examined at bedside. He states that his abdominal pain has improved and he continues to pass gas after his left inguinal hernia repair. He states he has been continuing to use his incentive spirometer at bedside. He denies fevers, chills, chest pain, shortness of breath, headache, dizziness, nausea, vomiting. He has not had a bowel movement yet. Objective - Vital Signs/Intake and Output Vital Signs (last 24 hours): Temp Pulse Resp BP Pulse Ox 98.6 F 83 20 101/70 97 08/06/18 08:00 08/06/18 08:00 08/06/18 08:00 08/06/18 08:00 08/06/18 08:00 Intake and Output: 08/06/18 08/06/18 06:59 18:59 Intake Total 610 Output Total 300 Balance 310 - Medications Medications: Current Medications Guaifenesin (Mucinex La) 600 mg PO BID [facility] Last Admin: 08/06/18 10:04 Dose: 600 mg Heparin Sodium (Porcine) (Heparin) 5,000 units SC Q8 [facility] Last Admin: 08/06/18 05:19 Dose: 5,000 units Ondansetron HCl (Zofran Inj) 4 mg IVP Q4 PRN PRN Reason: Nausea/Vomiting Oxycodone/Acetaminophen (Percocet 5/325 Mg Tab) 1 tab PO Q6H PRN PRN Reason: Pain, moderate (4-7) Stop: 08/08/18 11:46 Last Admin: 08/06/18 05:23 Dose: 1 tab Pantoprazole Sodium (Protonix Inj) 40 mg IVP DAILY [facility] Last Admin: 08/06/18 10:05 Dose: 40 mg Simethicone (Mylicon Chew Tab) 80 mg PO Q6H PRN PRN Reason: GI distress Last Admin: 08/05/18 21:28 Dose: 80 mg Sodium Chloride ([place] Baby Saline 30 Ml) 0 ml GUNNAR Q4H PRN PRN Reason: Nasal congestion Last Admin: 08/05/18 10:06 Dose: 1 spr Tamsulosin HCl (Flomax) 0.4 mg PO DAILY [facility] Last Admin: 08/06/18 10:05 Dose: 0.4 mg - Labs Labs: 08/06/18 07:46 08/06/18 07:46 PT 11.7 SECONDS (9.7-12.2) 08/04/18 07:26 INR 1.1 08/04/18 07:26 APTT 34 SECONDS (21-34) 08/03/18 06:54 - Constitutional Appears: Well, Non-toxic, No Acute Distress - Head Exam Head Exam: ATRAUMATIC, NORMOCEPHALIC - Eye Exam Eye Exam: EOMI, PERRL - ENT Exam ENT Exam: Mucous Membranes Moist - Neck Exam Neck Exam: Full ROM. absent: Tenderness - Respiratory Exam Respiratory Exam: Clear to Ausculation Bilateral, NORMAL BREATHING PATTERN. absent: Rales, Rhonchi, Wheezes, Respiratory Distress - Cardiovascular Exam Cardiovascular Exam: REGULAR RHYTHM, +S1, +S2. absent: Gallop, Rubs, Murmur - GI/Abdominal Exam GI & Abdominal Exam: Soft, Tenderness (Mild diffuse tenderness), Normal Bowel Sounds. absent: Firm, Guarding, Rigid - Exam Additional comments: Steristrips on left groin - Extremities Exam Extremities Exam: absent: Calf Tenderness, Pedal Edema - Back Exam Back Exam: absent: CVA tenderness (L), CVA tenderness (R) - Neurological Exam Neurological Exam: Alert, Awake, Oriented x3 - Psychiatric Exam Psychiatric exam: Normal Affect, Normal Mood - Skin Skin Exam: Dry, Intact, Warm Assessment and Plan - Assessment and Plan (Free Text) Assessment: 72 year old male with history of CAD, MIx2, HTN, HLD who presented for abdominal pain, found to have partial SBO due to left incarcerated inguinal hernia, underwent left inguinal hernia repair with mesh on 08/04/18, POD 2. Plan: Partial SBO secondary to left incarcerated inguinal hernia Status post left inguinal hernia repair with mesh - Images: * CT Abdomen/Pelvis (07/29): Bowel containing left inguinal hernia w/o clear evidence of obstruction. Diverticulosis. Prostatic enlargement. Hypoattenuation of liver compatible w/ hepatic steatosis - General Surgery Consult: Dr. Bhat --> help appreciated - Left inguinal hernia repair with mesh 08/04/18. EBL 10 ml, no drain - Medications: * Zofran prn for nausea * Tramadol 50 mg PO TID PRN * Percocet 1 tab Q6 PRN * Simethicone 80mg Q6 PRN - Resume regular diet - Incentive spirometer Q1H - patient educated at bedside. - Obstructive Series: No suspect pulmonary infiltrate. Probable confluent bronchovascular markings markings over left heart border. Incidental thread- like discoid atelectasis and/or scarring. Dilated small bowel loops with prominent stool filled right colon. Given the additional history a hernia repair on 08/04/2018 gleaned from the care taking nurse, the above findings are most likely related to a post operative ileus. Clinical correlation /continued follow-up advised. - Patient has not had a BM. Colace 100mg PO to be given at 12pm, 6pm Miralax to be given at 10pm. Patient to be discharged to follow up with Dr. Bhat in 7 days by calling his office to make an appointment. Rectal bleeding, resolved H/H stable CEA 1.1 FOBT - Negative GI consult Dr. Chiang Colonoscopy revealed internal hemorrhoids, anal papillae, stool in sigmoid colon, transverse colon and cecum. resume diet. repeat colonoscopy in 6 months. Not bleeding currently History of CAD - Hx of [place] x2 - Cardiac Consult: Dr. Junior --> help appreciated - Images: * EKG (07/29): NSR @ 64 bpm * Echo (07/30): LVEF 60-65%, normal systolic function. Mild mitral/tricuspid regurgitation. Mild pulmonary HTN. * Chest Xray: No interval pathology noted. Similar biapical pleural thickening. Osseous changes as above * ECHO (07/31/18): EF 60-65%; left ventricle systolic function is normal; no aortic regurgitation is present. - Spoke to Dr. Junior, patient is medically optimized for surgery 08/04/18 History of HTN - Normotensive - Continue to monitor History of HLD - lipid panel: Total cholesterol 152; LDL 100; HDL 33; hA1c 5.6 Hypertrophic Prostate - Tamsulosin 0.4 mg PO daily - I/Os Nasal congestion -Mucinex 600mg PO BID -Nasal saline spay Prophylaxis - DVT ppx: scds, heparin 5000 SQ Q8H - GI ppx: protonix Dispo: Patient to be discharged back to [facility] in [place] as per Case Management Gisel as he has been living there. Case discussed with Dr. Pro Xiong, PGY1 <Pro Rios - Last Filed: 08/07/18 17:26> Objective - Vital Signs/Intake and Output Vital Signs (last 24 hours): Temp Pulse Resp BP Pulse Ox 97.7 F 87 20 96/63 L 96 08/07/18 16:00 08/07/18 16:00 08/07/18 16:00 08/07/18 16:00 08/07/18 16:00 Intake and Output: 08/07/18 08/07/18 06:59 18:59 Intake Total 590 350 Output Total 450 Balance 140 350 - Medications Medications: Current Medications Guaifenesin (Mucinex La) 600 mg PO BID [facility] Last Admin: 08/07/18 17:13 Dose: 600 mg Heparin Sodium (Porcine) (Heparin) 5,000 units SC Q8 [facility] Last Admin: 08/07/18 13:43 Dose: 5,000 units Ondansetron HCl (Zofran Inj) 4 mg IVP Q4 PRN PRN Reason: Nausea/Vomiting Pantoprazole Sodium (Protonix Ec Tab) 40 mg PO DAILY [facility] Senna/Docusate Sodium (Senokot S 50 Mg-8.6 Mg) 1 tab PO BID [facility] Last Admin: 08/07/18 17:14 Dose: Not Given Simethicone (Mylicon Chew Tab) 80 mg PO Q6H PRN PRN Reason: GI distress Last Admin: 08/05/18 21:28 Dose: 80 mg Sodium Chloride ([place] Baby Saline 30 Ml) 0 ml GUNNAR Q4H PRN PRN Reason: Nasal congestion Last Admin: 08/05/18 10:06 Dose: 1 spr Tamsulosin HCl (Flomax) 0.4 mg PO DAILY [facility] Last Admin: 08/07/18 09:35 Dose: 0.4 mg Tramadol HCl (Ultram) 50 mg PO TID PRN PRN Reason: Pain, moderate (4-7) Last Admin: 08/06/18 15:03 Dose: 50 mg - Labs Labs: 08/07/18 07:11 08/07/18 07:11 PT 11.7 SECONDS (9.7-12.2) 08/04/18 07:26 INR 1.1 08/04/18 07:26 APTT 34 SECONDS (21-34) 08/03/18 06:54 Attending/Attestation - Attestation I have personally seen and examined this patient.: Yes I have fully participated in the care of the patient.: Yes I have reviewed all pertinent clinical information, including history, physical exam and plan: Yes Notes (Text): 08/07/18 17:23 Patient was seen and examined at 2:30 PM He has had a bowel movement today after physical therapy. This is what the medicine team was awaiting to happen due to the likely post op ileus. He is able to use rolling walker without any issues. Spoke with Ccna Wu and she will arrange for transport to [facility] for morning of 08/08/18. Patient could be discharged at the time of my exam, but would likely not be able to get a spot at the jail due to the time. Pro Rios D.O.
[2018-08-06] MEDS: Docusate-Senna 50 mg-8.6 mg Tab PO SCH (18:56)
--- NOTE | 2018-08-06 20:37 | PN ---
DATE: 08/06/2018 SUBJECTIVE: The patient tolerates regular diet. He is passing flatus. No bowel movement yet. No retrosternal chest pain. PHYSICAL EXAMINATION: VITAL SIGNS: Blood pressure 101/70, heart rate 83, temperature 98.6, and respirations 20. LABORATORY DATA: Today's hemoglobin, hematocrit, white count and platelet count are within normal limit. Today's SMA-7 is within normal limit. Yesterday's EKG revealed normal sinus rhythm. ASSESSMENT: Status post inguinal hernia repair. RECOMMENDATIONS: Continue current postoperative management. No further cardiac workup is indicated. Steven Junior MD
[2018-08-06] MEDS ORDERED: POLYETHYLENE GLYCOL 3350 17 GM/Dose PACKET PO ONE (22:00)
[2018-08-07 07:24] LABS: BASO # 0.1 K/uL (0.0-0.2); BASO % 0.8 % (0.0-2.0); EOS # 0.6 K/uL (0.0-0.7); EOS % 6.9 % (0.0-4.0); HEMOGLOBIN 13.5 g/dL (12.0-18.0); LYMPH # 2.3 K/uL (1.0-4.3); LYMPH % 27.8 % (20.0-40.0); MEAN CELL VOLUME 90.4 fL (80.0-94.0); MEAN CORPUSCULAR HEMOGLOBIN 30.5 pg (27.0-31.0); MEAN CORPUSCULAR HGB CONC 33.8 g/dL (33.0-37.0); MEAN PLATELET VOLUME 7.5 fL (7.2-11.7); MONO # 0.7 K/uL (0.0-0.8); MONO % 8.5 % (0.0-10.0); NEUT # 4.5 K/uL (1.8-7.0); NRBC % 0.1 % (0.0-2.0); RBC 4.42 Mil/uL (4.40-5.90); WHITE BLOOD COUNT 8.1 K/uL (4.8-10.8)
[2018-08-07 07:57] LABS: ALB/GLOB RATIO 1.3 (1.0-2.1); ALT/SGPT 20 U/L (21-72); AST/SGOT 20 U/L (17-59); BLOOD UREA NITROGEN 14 mg/dL (9-20); CALCIUM 8.8 mg/dl (8.6-10.4); GFR NON-AFRICAN AMERICAN > 60
[2018-08-07] MEDS ORDERED: Magnesium Hydroxide Susp 30 ml UD PO ONE (08:07)
--- NOTE | 2018-08-07 08:58 | CP.PCM.PN ---
<Jenny Xiong - Last Filed: 08/07/18 17:40> Subjective - Date & Time of Evaluation Date of Evaluation: 08/07/18 Time of Evaluation: 08:58 - Subjective Subjective: Progress Note for Hospitalist service Patient seen and examined at bedside. He is eating breakfast without any nausea, vomiting. He continues to pass flatus, however has not had a bowel movement yet. He denies fevers, chills, headache, dizziness, chest pain, shortness of breath, dysuria, leg pain or swelling. Objective - Vital Signs/Intake and Output Vital Signs (last 24 hours): Temp Pulse Resp BP Pulse Ox 98.1 F 73 20 104/67 99 08/07/18 08:21 08/07/18 08:21 08/07/18 08:21 08/07/18 08:21 08/07/18 08:21 Intake and Output: 08/07/18 08/07/18 06:59 18:59 Intake Total 590 Output Total 450 Balance 140 - Medications Medications: Current Medications Guaifenesin (Mucinex La) 600 mg PO BID [facility] Last Admin: 08/06/18 17:15 Dose: 600 mg Heparin Sodium (Porcine) (Heparin) 5,000 units SC Q8 [facility] Last Admin: 08/07/18 05:33 Dose: 5,000 units Ondansetron HCl (Zofran Inj) 4 mg IVP Q4 PRN PRN Reason: Nausea/Vomiting Pantoprazole Sodium (Protonix Inj) 40 mg IVP DAILY [facility] Last Admin: 08/06/18 10:05 Dose: 40 mg Senna/Docusate Sodium (Senokot S 50 Mg-8.6 Mg) 1 tab PO BID [facility] Last Admin: 08/06/18 18:56 Dose: 1 tab Simethicone (Mylicon Chew Tab) 80 mg PO Q6H PRN PRN Reason: GI distress Last Admin: 08/05/18 21:28 Dose: 80 mg Sodium Chloride ([place] Baby Saline 30 Ml) 0 ml GUNNAR Q4H PRN PRN Reason: Nasal congestion Last Admin: 08/05/18 10:06 Dose: 1 spr Tamsulosin HCl (Flomax) 0.4 mg PO DAILY [facility] Last Admin: 08/06/18 10:05 Dose: 0.4 mg Tramadol HCl (Ultram) 50 mg PO TID PRN PRN Reason: Pain, moderate (4-7) Last Admin: 08/06/18 15:03 Dose: 50 mg - Labs Labs: 08/07/18 07:11 08/07/18 07:11 PT 11.7 SECONDS (9.7-12.2) 08/04/18 07:26 INR 1.1 08/04/18 07:26 APTT 34 SECONDS (21-34) 08/03/18 06:54 - Constitutional Appears: Well, Non-toxic, No Acute Distress - Head Exam Head Exam: ATRAUMATIC, NORMOCEPHALIC - Eye Exam Eye Exam: EOMI, PERRL - ENT Exam ENT Exam: Mucous Membranes Moist - Neck Exam Neck Exam: Full ROM. absent: Tenderness - Respiratory Exam Respiratory Exam: Clear to Ausculation Bilateral, NORMAL BREATHING PATTERN. absent: Rales, Rhonchi, Wheezes, Respiratory Distress, Stridor - Cardiovascular Exam Cardiovascular Exam: REGULAR RHYTHM, +S1, +S2. absent: Gallop, Rubs, Murmur - GI/Abdominal Exam GI & Abdominal Exam: Soft, Normal Bowel Sounds. absent: Firm, Guarding, Rigid, Tenderness - Exam Additional comments: Steristrips in place on left groin Scrotal support - Extremities Exam Extremities Exam: Normal Capillary Refill. absent: Calf Tenderness, Pedal Edema - Back Exam Back Exam: absent: CVA tenderness (L), CVA tenderness (R) - Neurological Exam Neurological Exam: Alert, Awake, CN II-XII Intact, Oriented x3 - Psychiatric Exam Psychiatric exam: Normal Affect, Normal Mood - Skin Skin Exam: Dry, Intact, Warm Assessment and Plan - Assessment and Plan (Free Text) Assessment: 72 year old male with history of CAD, MIx2, HTN, HLD who presented for abdominal pain, found to have partial SBO due to left incarcerated inguinal hernia, underwent left inguinal hernia repair with mesh on 08/04/18, post operative day 3. Plan: Postoperative ileus Partial SBO secondary to left incarcerated inguinal hernia Status post left inguinal hernia repair with mesh - Images: * CT Abdomen/Pelvis (07/29): Bowel containing left inguinal hernia w/o clear evidence of obstruction. Diverticulosis. Prostatic enlargement. Hypoattenuation of liver compatible w/ hepatic steatosis - General Surgery Consult: Dr. Bhat --> help appreciated - Left inguinal hernia repair with mesh 08/04/18. EBL 10 ml, no drain - Medications: * Zofran prn for nausea * Tramadol 50 mg PO TID PRN * Simethicone 80mg Q6 PRN - Resume regular diet - Incentive spirometer Q1H - patient educated at bedside. - Obstructive Series: No suspect pulmonary infiltrate. Probable confluent bronchovascular markings markings over left heart border. Incidental thread- like discoid atelectasis and/or scarring. Dilated small bowel loops with prominent stool filled right colon. Given the additional history a hernia repair on 08/04/2018 gleaned from the care taking nurse, the above findings are most likely related to a post operative ileus. Clinical correlation /continued follow-up advised. - Patient had multiple bowel movements today after he received Colace, Miralax, Lactulose and Senna. He was able to walk around without pain as per physical therapist Matilda. Patient to be discharged to follow up with Dr. Bhat in 7 days by calling his office to make an appointment. Rectal bleeding, resolved Hb13.5/Hct 39.9 CEA 1.1 FOBT - Negative GI consult Dr. Chiang Colonoscopy revealed internal hemorrhoids, anal papillae, stool in sigmoid colon, transverse colon and cecum. resume diet. repeat colonoscopy in 6 months. Not bleeding currently History of CAD - Hx of [place] x2 - Cardiac Consult: Dr. Junior --> help appreciated - Images: * EKG (07/29): NSR @ 64 bpm * Echo (07/30): LVEF 60-65%, normal systolic function. Mild mitral/tricuspid regurgitation. Mild pulmonary HTN. * Chest Xray: No interval pathology noted. Similar biapical pleural thickening. Osseous changes as above * ECHO (07/31/18): EF 60-65%; left ventricle systolic function is normal; no aortic regurgitation is present. - Spoke to Dr. Junior, patient is medically optimized for surgery 08/04/18 History of HTN - Normotensive - Continue to monitor History of HLD - lipid panel: Total cholesterol 152; LDL 100; HDL 33; hA1c 5.6 Hypertrophic Prostate - Tamsulosin 0.4 mg PO daily - I/Os Nasal congestion -Mucinex 600mg PO BID -Nasal saline spay Prophylaxis - DVT ppx: scds, heparin 5000 SQ Q8H - GI ppx: protonix Dispo: Patient to be discharged back to [facility] in [place] tomorrow as per Case Management Gisel. Script for cane provided. Case discussed with Dr. Pro Xiong, PGY1 <Pro Rios - Last Filed: 08/07/18 19:39> Objective - Vital Signs/Intake and Output Vital Signs (last 24 hours): Temp Pulse Resp BP Pulse Ox 97.7 F 87 20 96/63 L 96 08/07/18 16:00 08/07/18 16:00 08/07/18 16:00 08/07/18 16:00 08/07/18 16:00 Intake and Output: 08/07/18 08/08/18 18:59 06:59 Intake Total 350 Balance 350 - Medications Medications: Current Medications Guaifenesin (Mucinex La) 600 mg PO BID [facility] Last Admin: 08/07/18 17:13 Dose: 600 mg Heparin Sodium (Porcine) (Heparin) 5,000 units SC Q8 [facility] Last Admin: 08/07/18 13:43 Dose: 5,000 units Ondansetron HCl (Zofran Inj) 4 mg IVP Q4 PRN PRN Reason: Nausea/Vomiting Pantoprazole Sodium (Protonix Ec Tab) 40 mg PO DAILY [facility] Senna/Docusate Sodium (Senokot S 50 Mg-8.6 Mg) 1 tab PO BID [facility] Last Admin: 08/07/18 17:14 Dose: Not Given Simethicone (Mylicon Chew Tab) 80 mg PO Q6H PRN PRN Reason: GI distress Last Admin: 08/05/18 21:28 Dose: 80 mg Sodium Chloride ([place] Baby Saline 30 Ml) 0 ml GUNNAR Q4H PRN PRN Reason: Nasal congestion Last Admin: 08/05/18 10:06 Dose: 1 spr Tamsulosin HCl (Flomax) 0.4 mg PO DAILY [facility] Last Admin: 08/07/18 09:35 Dose: 0.4 mg Tramadol HCl (Ultram) 50 mg PO TID PRN PRN Reason: Pain, moderate (4-7) Last Admin: 08/06/18 15:03 Dose: 50 mg - Labs Labs: 08/07/18 07:11 08/07/18 07:11 PT 11.7 SECONDS (9.7-12.2) 08/04/18 07:26 INR 1.1 08/04/18 07:26 APTT 34 SECONDS (21-34) 08/03/18 06:54 Attending/Attestation - Attestation I have personally seen and examined this patient.: Yes I have fully participated in the care of the patient.: Yes I have reviewed all pertinent clinical information, including history, physical exam and plan: Yes Notes (Text): 08/07/18 19:34 Patient was seen and examined at 2:30 PM Care of this patient was gone over in detail with Resident Dr. Xiong He has had a bowel movement today after physical therapy. This is what the medicine team was awaiting to happen due to the likely post op ileus. He is able to use rolling walker without any issues. Spoke with Transfer Station Attendant Wu and she will arrange for transport to [facility] for morning of 08/08/18. Patient could be discharged at the time of my exam, but would likely not be able to get a spot at the jail due to the time. Pro Rios D.O.
[2018-08-07] MEDS: guaiFENesin 600 mg ER Tab PO SCH ×2 (09:36→17:13)
[2018-08-07] MEDS: Docusate-Senna 50 mg-8.6 mg Tab PO SCH ×2 (09:39→17:14)
--- NOTE | 2018-08-07 16:03 | CP.PCM.PN ---
Subjective - Date & Time of Evaluation Date of Evaluation: 08/07/18 Time of Evaluation: 16:01 - Subjective Subjective: General Surgery - Dr. Bhat Pt S&E. KAREN. Earlier this morning pt had complaints of groin pain and inability to have a bowel movement since before the surgery. HE has since had 4 BMs and this afternoon states that he is feeling much better. HE has been OOB and ambulating with walker. No n/v, f/c, sob/cp. Objective - Vital Signs/Intake and Output Vital Signs (last 24 hours): Temp Pulse Resp BP Pulse Ox 98.1 F 73 20 104/67 99 08/07/18 08:21 08/07/18 08:21 08/07/18 08:21 08/07/18 08:21 08/07/18 08:21 Intake and Output: 08/07/18 08/07/18 06:59 18:59 Intake Total 590 350 Output Total 450 Balance 140 350 - Medications Medications: Current Medications Guaifenesin (Mucinex La) 600 mg PO BID [facility] Last Admin: 08/07/18 09:36 Dose: 600 mg Heparin Sodium (Porcine) (Heparin) 5,000 units SC Q8 [facility] Last Admin: 08/07/18 13:43 Dose: 5,000 units Ondansetron HCl (Zofran Inj) 4 mg IVP Q4 PRN PRN Reason: Nausea/Vomiting Pantoprazole Sodium (Protonix Ec Tab) 40 mg PO DAILY [facility] Senna/Docusate Sodium (Senokot S 50 Mg-8.6 Mg) 1 tab PO BID [facility] Last Admin: 08/07/18 09:39 Dose: 1 tab Simethicone (Mylicon Chew Tab) 80 mg PO Q6H PRN PRN Reason: GI distress Last Admin: 08/05/18 21:28 Dose: 80 mg Sodium Chloride (Nuevo Baby Saline 30 Ml) 0 ml GUNNAR Q4H PRN PRN Reason: Nasal congestion Last Admin: 08/05/18 10:06 Dose: 1 spr Tamsulosin HCl (Flomax) 0.4 mg PO DAILY [facility] Last Admin: 08/07/18 09:35 Dose: 0.4 mg Tramadol HCl (Ultram) 50 mg PO TID PRN PRN Reason: Pain, moderate (4-7) Last Admin: 08/06/18 15:03 Dose: 50 mg - Labs Labs: 08/07/18 07:11 08/07/18 07:11 PT 11.7 SECONDS (9.7-12.2) 08/04/18 07:26 INR 1.1 08/04/18 07:26 APTT 34 SECONDS (21-34) 08/03/18 06:54 - Constitutional Appears: No Acute Distress - Head Exam Head Exam: ATRAUMATIC, NORMAL INSPECTION, NORMOCEPHALIC - Eye Exam Eye Exam: Normal appearance - Respiratory Exam Respiratory Exam: NORMAL BREATHING PATTERN. absent: Respiratory Distress - Cardiovascular Exam Cardiovascular Exam: REGULAR RHYTHM - GI/Abdominal Exam GI & Abdominal Exam: Soft. absent: Distended, Firm, Guarding, Rigid, Tender ness, Rebound Additional comments: surgical site c/d/i - Neurological Exam Neurological Exam: Alert, Oriented x3 - Psychiatric Exam Psychiatric exam: Normal Affect, Normal Mood - Skin Skin Exam: Dry, Intact Assessment and Plan - Assessment and Plan (Free Text) Assessment: 72M POD#3 s/p Left Inguinal hernia repair with mesh Plan: - Clear for d/c from surgical standpoint - No heavy lifting >10lbs for 4 weeks - PO pain meds prn - F/U With dr Bhat in office in 1 week Dez PGY4
--- NOTE | 2018-08-07 21:27 | PN ---
DATE: 08/07/2018 SUBJECTIVE: The patient's mom is at the bedside and no reported hematuria, and the patient is comfortable. Playing with a toy. PHYSICAL EXAMINATION: VITAL SIGNS: Blood pressure 104/67, heart rate 73, temperature 98.1, respirations 20. HEENT: Normocephalic. CHEST: Clear. HEART: S1, S2, regular. EXTREMITIES: No edema. LABORATORY DATA: Today's hemoglobin and hematocrit 10.4 and 32. White count and platelet count are within normal limits. SMA-7: Sodium 137, potassium 4.5, chloride 102, CO2 of 30, glucose 89, BUN 44, creatinine 5.5. Today's PTT is 89, on intravenous heparin. INR is 1.4. ASSESSMENT: 1. Improved cardiomyopathy. 2. Status post replacement of ureteric stent. 3. History of left popliteal deep vein thrombosis in 06/2017. 4. End-stage renal disease, on hemodialysis. 5. Improved hematuria. RECOMMENDATIONS: Continue current intravenous heparin in therapeutic regimen. The patient will receive Coumadin 7.5 mg today. In the meantime, continue current Nephro-Greg, oral Pepcid, and PhosLo. The patient will undergo hemodialysis tomorrow and will be discharged if his INR is therapeutic. Steven Junior MD
[2018-08-08 07:39] LABS: BASO # 0.1 K/uL (0.0-0.2); BASO % 0.8 % (0.0-2.0); EOS # 0.6 K/uL (0.0-0.7); EOS % 6.4 % (0.0-4.0); HEMOGLOBIN 13.6 g/dL (12.0-18.0); LYMPH # 2.2 K/uL (1.0-4.3); MEAN CELL VOLUME 90.2 fL (80.0-94.0); MEAN CORPUSCULAR HEMOGLOBIN 30.7 pg (27.0-31.0); MEAN CORPUSCULAR HGB CONC 34.1 g/dL (33.0-37.0); MEAN PLATELET VOLUME 7.6 fL (7.2-11.7); MONO # 0.8 K/uL (0.0-0.8); MONO % 8.8 % (0.0-10.0); NEUT # 5.1 K/uL (1.8-7.0); RBC 4.43 Mil/uL (4.40-5.90); RED CELL DISTRIBUTION WIDTH 13.9 % (11.5-14.5); WHITE BLOOD COUNT 8.6 K/uL (4.8-10.8)
[2018-08-08 08:09] LABS: BLOOD UREA NITROGEN 15 mg/dL (9-20); GFR NON-AFRICAN AMERICAN > 60
[2018-08-08 08:10] LABS: ALB/GLOB RATIO 1.3 (1.0-2.1); ALBUMIN 4.2 g/dL (3.5-5.0); ALT/SGPT 29 U/L (21-72); AST/SGOT 31 U/L (17-59); CALCIUM 9.1 mg/dl (8.6-10.4)
--- NOTE | 2018-08-08 08:21 | CP.PCM.DIS ---
<Jenny Xiong - Last Filed: 08/08/18 08:21> Provider - Provider Date of Admission: 07/29/18 22:39 Attending physician: Pro Rios MD Consults: 07/30/18 03:21 Cardiology Consult Routine Comment: Consulting Provider: Steven Junior Consulting Physician: Steven Junior Reason for Consult: Cardiac clearance for surgery 07/30/18 06:33 Gastroenterology Consult Routine Comment: Consulting Provider: Tunde Chiang Consulting Physician: Tunde Chiang Reason for Consult: Hx GI bleeding and weightloss 07/30/18 10:01 General Surgery Consult Routine Comment: Consulting Provider: Yasir Bhat Consulting Physician: Yasir Bhat Reason for Consult: partial SBO and left incarcerated ing hernia Hospital Course - Lab Results Lab Results: Most Recent Lab Values WBC 8.6 K/uL (4.8-10.8) 08/08/18 07:23 RBC 4.43 Mil/uL (4.40-5.90) 08/08/18 07:23 Hgb 13.6 g/dL (12.0-18.0) 08/08/18 07:23 Hct 40.0 % (35.0-51.0) 08/08/18 07:23 MCV 90.2 fL (80.0-94.0) 08/08/18 07:23 MCH 30.7 pg (27.0-31.0) 08/08/18 07:23 MCHC 34.1 g/dL (33.0-37.0) 08/08/18 07:23 RDW 13.9 % (11.5-14.5) 08/08/18 07:23 Plt Count 365 K/uL (130-400) 08/08/18 07:23 MPV 7.6 fL (7.2-11.7) 08/08/18 07:23 Neut % (Auto) 59.0 % (50.0-75.0) 08/08/18 07:23 Lymph % (Auto) 25.0 % (20.0-40.0) 08/08/18 07:23 [place] % (Auto) 8.8 % (0.0-10.0) 08/08/18 07:23 Eos % (Auto) 6.4 % (0.0-4.0) H 08/08/18 07:23 Baso % (Auto) 0.8 % (0.0-2.0) 08/08/18 07:23 Neut # (Auto) 5.1 K/uL (1.8-7.0) 08/08/18 07:23 Lymph # (Auto) 2.2 K/uL (1.0-4.3) 08/08/18 07:23 [place] # (Auto) 0.8 K/uL (0.0-0.8) 08/08/18 07:23 Eos # (Auto) 0.6 K/uL (0.0-0.7) 08/08/18 07:23 Baso # (Auto) 0.1 K/uL (0.0-0.2) 08/08/18 07:23 PT 11.7 SECONDS (9.7-12.2) 08/04/18 07:26 INR 1.1 08/04/18 07:26 APTT 34 SECONDS (21-34) 08/03/18 06:54 Sodium 138 mmol/L (132-148) 08/08/18 07:23 Potassium 4.2 mmol/L (3.6-5.2) 08/08/18 07:23 Chloride 100 mmol/L (98-107) 08/08/18 07:23 Carbon Dioxide 28 mmol/L (22-30) 08/08/18 07:23 Anion Gap 14 (10-20) 08/08/18 07:23 BUN 15 mg/dL (9-20) 08/08/18 07:23 Creatinine 0.8 mg/dL (0.8-1.5) 08/08/18 07:23 Est GFR ( Amer) > 60 08/08/18 07:23 Est GFR (Non-Af Amer) > 60 08/08/18 07:23 Random Glucose 87 mg/dL (75-110) 08/08/18 07:23 Hemoglobin A1c 5.6 % (4.2-6.5) 07/30/18 10:28 Calcium 9.1 mg/dl (8.6-10.4) 08/08/18 07:23 Phosphorus 3.2 mg/dL (2.5-4.5) 08/08/18 07:23 Magnesium 2.3 mg/dL (1.6-2.3) 08/08/18 07:23 Total Bilirubin 0.6 mg/dL (0.2-1.3) 08/08/18 07:23 AST 31 U/L (17-59) 08/08/18 07:23 ALT 29 U/L (21-72) 08/08/18 07:23 Alkaline Phosphatase 71 U/L (38-126) 08/08/18 07:23 Total Protein 7.5 g/dL (6.3-8.3) 08/08/18 07:23 Albumin 4.2 g/dL (3.5-5.0) 08/08/18 07:23 Globulin 3.3 gm/dL (2.2-3.9) 08/08/18 07:23 Albumin/Globulin Ratio 1.3 (1.0-2.1) 08/08/18 07:23 Triglycerides 115 mg/dL (0-149) 07/30/18 07:50 Cholesterol 152 mg/dL (0-199) 07/30/18 07:50 LDL Cholesterol Direct 100 mg/dL (0-129) 07/30/18 07:50 HDL Cholesterol 33 mg/dL (30-70) 07/30/18 07:50 Lipase 106 U/L (23-300) 07/29/18 17:18 Carcinoembryonic Ag 1.1 ng/mL (0-3.0) 07/30/18 17:22 Urine Color Straw (YELLOW) 07/29/18 17:32 Urine Clarity Clear (Clear) 07/29/18 17:32 Urine pH 7.0 (5.0-8.0) 07/29/18 17:32 Ur Specific Morrill 1.003 (1.003-1.030) 07/29/18 17:32 Urine Protein Negative mg/dL (NEGATIVE) 07/29/18 17:32 Urine Glucose (UA) Normal mg/dL (Normal) 07/29/18 17:32 Urine Ketones Negative mg/dL (NEGATIVE) 07/29/18 17:32 Urine Blood 1+ (NEGATIVE) H 07/29/18 17:32 Urine Nitrate Negative (NEGATIVE) 07/29/18 17:32 Urine Bilirubin Negative (NEGATIVE) 07/29/18 17:32 Urine Urobilinogen Normal mg/dL (0.2-1.0) 07/29/18 17:32 Ur Leukocyte Esterase Neg Lidia/uL (Negative) 07/29/18 17:32 Urine WBC (Auto) < 1 /hpf (0-5) 07/29/18 17:32 Urine RBC (Auto) < 1 /hpf (0-3) 07/29/18 17:32 Stool Occult Blood Negative (NEGATIVE) 08/02/18 12:05 Blood Type A POSITIVE 08/04/18 07:26 Antibody Screen Negative 08/04/18 07:26 Discharge Exam - Head Exam Head Exam: ATRAUMATIC, NORMOCEPHALIC Discharge Plan - Discharge Medications Prescriptions: Atorvastatin [Lipitor] 10 mg PO DIN #90 tab Tamsulosin [Flomax] 0.4 mg PO DAILY #90 cap - Follow Up Plan Condition: STABLE Disposition: HOME/ ROUTINE Instructions: Groin Hernia Repair (DC), Acetaminophen, Aspirin, Atorvastatin, Tamsulosin, Inguinal Hernia (DC) Additional Instructions: The following instructions were explained to patient and a copy will need to be provided to him upon discharge. He understands Maori but a copy in Monegasque will also be provided: 1). Schedule an appointment with the [facility] located on Floor B of [facility] at [address] [place] [address] in [place], [place] by calling [phone] for an appointment to take place in the next 7 days. The doctors at this clinic will be your primary care providers and will help to coordinate your health care and provide you with future prescriptions. 2). Schedule an appointment with Surgeon Dr. Bhat by calling his office [phone]. This appointment should take place in the next 7 days. His office is located at [address] [place] [address] [place] [address]. 3). You will have to arrange for transportation to and from your appointments through the Care Home where you are being taken. 4). You were provided with the following medications. Please take them as instructed. Future prescriptions will need to be obtained through the [facility]: Aspirin 81 mg, 1 tablet by mouth once a day at 8 AM Atorvastatin 10 mg, 1 tablet by mouth once a day at 8 PM Tamsulosin 0.4 mg, 1 tablet by mouth once a day at 8 AM 5). Please do not lift anything heavier than 10 to 15 pounds for now until you are cleared to do so by the [facility]. 6). You may take 1 tablet of Extra Strength Tylenol every 6 hours as needed for pain. This was also provided for you. 7). Please take care and be well. 1). Programe ju melony con el [facility] ubicado en el [address] del [facility] en [address] [facility] en [place], [place] llamando al [phone] para ju melony que tendr lugar en los prximos 7 wade. Los mdicos de esta clnica sern nicci proveedores de atencin primaria y lo ayudarn a coordinar rogers atencin mdica y le brindarn futuras recetas. 2). Programe ju melony con el cir[address] [facility] al [phone]. Esta melony debe tener lugar en los prximos 7 wade. [facility] est ubicada en [address] [place] [address] [place] [address]. 3). Tendr que hacer arreglos para el transporte hacia y desde ncici citas a travs del [place] donde lo llevan. 4). Usted recibi los siguientes medicamentos. Por favor tmelos veronika se le indique. Las futuras recetas debern obtenerse a travs del [facility]: Aspirina 81 mg, 1 tableta por va oral ju vez al da a las 8 AM Atorvastatina 10 mg, 1 tableta por va oral ju vez al da a las 8 p. M. Tamsulosina 0.4 mg, 1 tableta por va oral ju vez al da a las 8 AM 5). Por favor, no levante nada que pese ms de 10 a 15 libras hasta que est autorizado para hacerlo por la [facility]. 6). Puede lux 1 tableta de Tylenol extra anabella cada 6 horas segn sea necesario para el dolor. [place] tambin fue proporcionado para usted. 7). Por favor cuidate y estar clifton. Referrals: Yasir Bhat MD [Staff Provider] - Shelia Rossi MD [Staff Provider] - <Pro Rios - Last Filed: 08/08/18 18:06> Provider - Provider Date of Admission: 07/29/18 22:39 Attending physician: Pro Rios MD Consults: 07/30/18 03:21 Cardiology Consult Routine Comment: Consulting Provider: Steven Junior Consulting Physician: Steven Junior Reason for Consult: Cardiac clearance for surgery 07/30/18 06:33 Gastroenterology Consult Routine Comment: Consulting Provider: Tunde Chiang Consulting Physician: Tunde Chiang Reason for Consult: Hx GI bleeding and weightloss 07/30/18 10:01 General Surgery Consult Routine Comment: Consulting Provider: Yasir Bhat Consulting Physician: Yasir Bhat Reason for Consult: partial SBO and left incarcerated ing hernia Time Spent in preparation of Discharge (in minutes): 40 Hospital Course - Lab Results Lab Results: Most Recent Lab Values WBC 8.6 K/uL (4.8-10.8) 08/08/18 07:23 RBC 4.43 Mil/uL (4.40-5.90) 08/08/18 07:23 Hgb 13.6 g/dL (12.0-18.0) 08/08/18 07:23 Hct 40.0 % (35.0-51.0) 08/08/18 07:23 MCV 90.2 fL (80.0-94.0) 08/08/18 07:23 MCH 30.7 pg (27.0-31.0) 08/08/18 07:23 MCHC 34.1 g/dL (33.0-37.0) 08/08/18 07:23 RDW 13.9 % (11.5-14.5) 08/08/18 07:23 Plt Count 365 K/uL (130-400) 08/08/18 07:23 MPV 7.6 fL (7.2-11.7) 08/08/18 07:23 Neut % (Auto) 59.0 % (50.0-75.0) 08/08/18 07:23 Lymph % (Auto) 25.0 % (20.0-40.0) 08/08/18 07:23 [place] % (Auto) 8.8 % (0.0-10.0) 08/08/18 07:23 Eos % (Auto) 6.4 % (0.0-4.0) H 08/08/18 07:23 Baso % (Auto) 0.8 % (0.0-2.0) 08/08/18 07:23 Neut # (Auto) 5.1 K/uL (1.8-7.0) 08/08/18 07:23 Lymph # (Auto) 2.2 K/uL (1.0-4.3) 08/08/18 07:23 [place] # (Auto) 0.8 K/uL (0.0-0.8) 08/08/18 07:23 Eos # (Auto) 0.6 K/uL (0.0-0.7) 08/08/18 07:23 Baso # (Auto) 0.1 K/uL (0.0-0.2) 08/08/18 07:23 PT 11.7 SECONDS (9.7-12.2) 08/04/18 07:26 INR 1.1 08/04/18 07:26 APTT 34 SECONDS (21-34) 08/03/18 06:54 Sodium 138 mmol/L (132-148) 08/08/18 07:23 Potassium 4.2 mmol/L (3.6-5.2) 08/08/18 07:23 Chloride 100 mmol/L (98-107) 08/08/18 07:23 Carbon Dioxide 28 mmol/L (22-30) 08/08/18 07:23 Anion Gap 14 (10-20) 08/08/18 07:23 BUN 15 mg/dL (9-20) 08/08/18 07:23 Creatinine 0.8 mg/dL (0.8-1.5) 08/08/18 07:23 Est GFR ( Amer) > 60 08/08/18 07:23 Est GFR (Non-Af Amer) > 60 08/08/18 07:23 Random Glucose 87 mg/dL (75-110) 08/08/18 07:23 Hemoglobin A1c 5.6 % (4.2-6.5) 07/30/18 10:28 Calcium 9.1 mg/dl (8.6-10.4) 08/08/18 07:23 Phosphorus 3.2 mg/dL (2.5-4.5) 08/08/18 07:23 Magnesium 2.3 mg/dL (1.6-2.3) 08/08/18 07:23 Total Bilirubin 0.6 mg/dL (0.2-1.3) 08/08/18 07:23 AST 31 U/L (17-59) 08/08/18 07:23 ALT 29 U/L (21-72) 08/08/18 07:23 Alkaline Phosphatase 71 U/L (38-126) 08/08/18 07:23 Total Protein 7.5 g/dL (6.3-8.3) 08/08/18 07:23 Albumin 4.2 g/dL (3.5-5.0) 08/08/18 07:23 Globulin 3.3 gm/dL (2.2-3.9) 08/08/18 07:23 Albumin/Globulin Ratio 1.3 (1.0-2.1) 08/08/18 07:23 Triglycerides 115 mg/dL (0-149) 07/30/18 07:50 Cholesterol 152 mg/dL (0-199) 07/30/18 07:50 LDL Cholesterol Direct 100 mg/dL (0-129) 07/30/18 07:50 HDL Cholesterol 33 mg/dL (30-70) 07/30/18 07:50 Lipase 106 U/L (23-300) 07/29/18 17:18 Carcinoembryonic Ag 1.1 ng/mL (0-3.0) 07/30/18 17:22 Urine Color Straw (YELLOW) 07/29/18 17:32 Urine Clarity Clear (Clear) 07/29/18 17:32 Urine pH 7.0 (5.0-8.0) 07/29/18 17:32 Ur Specific Morrill 1.003 (1.003-1.030) 07/29/18 17:32 Urine Protein Negative mg/dL (NEGATIVE) 07/29/18 17:32 Urine Glucose (UA) Normal mg/dL (Normal) 07/29/18 17:32 Urine Ketones Negative mg/dL (NEGATIVE) 07/29/18 17:32 Urine Blood 1+ (NEGATIVE) H 07/29/18 17:32 Urine Nitrate Negative (NEGATIVE) 07/29/18 17:32 Urine Bilirubin Negative (NEGATIVE) 07/29/18 17:32 Urine Urobilinogen Normal mg/dL (0.2-1.0) 07/29/18 17:32 Ur Leukocyte Esterase Neg Lidia/uL (Negative) 07/29/18 17:32 Urine WBC (Auto) < 1 /hpf (0-5) 07/29/18 17:32 Urine RBC (Auto) < 1 /hpf (0-3) 07/29/18 17:32 Stool Occult Blood Negative (NEGATIVE) 08/02/18 12:05 Blood Type A POSITIVE 08/04/18 07:26 Antibody Screen Negative 08/04/18 07:26 - Hospital Course Hospital Course: . Attending/Attestation - Attestation I have personally seen and examined this patient.: Yes I have fully participated in the care of the patient.: Yes I have reviewed all pertinent clinical information, including history, physical exam and plan: Yes Notes (Text): 08/08/18 17:47 72 year old male with history of CAD, MIx2, HTN, HLD who presented for abdominal pain, found to have partial SBO due to left incarcerated inguinal hernia, underwent left inguinal hernia repair with mesh on 08/04/18. After surgery patient experienced constipation likely secondary to post operative ileus. He was given Colace, Lactulose and worked with PT to increase his ambulation and he eventually had a bowel movement on 08/07/18. He was transferred to [facility] where a bed was available on 08/08/18. Please see Assessment and Plans below for details and the medical record for complete details of this patient's hospital stay. Assessment and Plans During This Admission: Postoperative Ileus Partial SBO secondary to left incarcerated inguinal hernia Status post left inguinal hernia repair with mesh - Images: * CT Abdomen/Pelvis (07/29): Bowel containing left inguinal hernia w/o clear evidence of obstruction. Diverticulosis. Prostatic enlargement. Hypoattenuation of liver compatible w/ hepatic steatosis - General Surgery Consult: Dr. Bhat --> help appreciated - Left inguinal hernia repair with mesh 08/04/18. EBL 10 ml, no drain - Medications: * Zofran prn for nausea * Tramadol 50 mg PO TID PRN * Simethicone 80mg Q6 PRN - Resume regular diet - Incentive spirometer Q1H - patient educated at bedside. - Obstructive Series: No suspect pulmonary infiltrate. Probable confluent bronchovascular markings markings over left heart border. Incidental thread- like discoid atelectasis and/or scarring. Dilated small bowel loops with prominent stool filled right colon. Given the additional history a hernia repair on 08/04/2018 gleaned from the care taking nurse, the above findings are most likely related to a post operative ileus. Clinical correlation /continued follow-up advised. - Patient had multiple bowel movements 08/07/18 after he received Colace, Miralax, Lactulose and Senna. He was able to walk around without pain as per physical therapist Matilda. Patient to be discharged to follow up with Dr. Bhat in 7 days by calling his office to make an appointment. Rectal bleeding, resolved Hb13.5/Hct 39.9 CEA 1.1 FOBT - Negative GI consult Dr. Chiang Colonoscopy revealed internal hemorrhoids, anal papillae, stool in sigmoid colon, transverse colon and cecum. resume diet. repeat colonoscopy in 6 months. Not bleeding currently History of CAD - Hx of PA x2 - Cardiac Consult: Dr. Junior --> help appreciated - Images: * EKG (07/29): NSR @ 64 bpm * Echo (07/30): LVEF 60-65%, normal systolic function. Mild mitral/tricuspid regurgitation. Mild pulmonary HTN. * Chest Xray: No interval pathology noted. Similar biapical pleural thickening. Osseous changes as above * ECHO (07/31/18): EF 60-65%; left ventricle systolic function is normal; no aortic regurgitation is present. - Spoke to Dr. Junior, patient is medically optimized for surgery 08/04/18 History of HTN - Normotensive - Continue to monitor History of HLD - lipid panel: Total cholesterol 152; LDL 100; HDL 33; hA1c 5.6 Hypertrophic Prostate - Tamsulosin 0.4 mg PO daily - I/Os Nasal congestion -Mucinex 600mg PO BID -Nasal saline spay Prophylaxis - DVT ppx: scds, heparin 5000 SQ Q8H - GI ppx: protonix Spoke with Cmo & President Wu on 08/07/18 and she has arranged for transport to Care Home with Bed for this morning 08/08/[address] Xiong who had spoken with PT Matilda: walking cane has been provided I will provide patient with his outpatient medications 3 month supply once the outpatient pharmacy at [facility] opens Patient understands that he will have to arrange through the prison to follow up with our [facility] and with Surgeon Dr. Bhat. The following instructions were explained to patient and a copy will need to be provided to him upon discharge. He understands Maori but a copy in Monegasque will also be provided: 1). Schedule an appointment with the [facility] located on Floor B of [facility] at [address] [place] [address] in [place], [place] by calling [phone] for an appointment to take place in the next 7 days. The doctors at this clinic will be your primary care providers and will help to coordinate your health care and provide you with future prescriptions. 2). Schedule an appointment with Surgeon Dr. Bhat by calling his office [phone]. This appointment should take place in the next 7 days. His office is located at [address] [place] [address] [place] [address]. 3). You will have to arrange for transportation to and from your appointments through the Care Home where you are being taken. 4). You were provided with the following medications. Please take them as instructed. Future prescriptions will need to be obtained through the [facility]: Aspirin 81 mg, 1 tablet by mouth once a day at 8 AM Atorvastatin 10 mg, 1 tablet by mouth once a day at 8 PM Tamsulosin 0.4 mg, 1 tablet by mouth once a day at 8 AM 5). Please do not lift anything heavier than 10 to 15 pounds for now until you are cleared to do so by the [facility]. 6). Please take care and be well. Pro Rios D.O.
--- NOTE | 2018-08-08 08:21 | CP.PCM.PN ---
Subjective - Date & Time of Evaluation Date of Evaluation: 08/08/18 Time of Evaluation: 06:50 - Subjective Subjective: General Surgery Dr. Bhat Pt seen and examined @bedside. No acute events overnight. Pt had multiple bowel movements yesterday w/ relief of abd/groin pain. Pt has no complaints this AM. denies F/C, N/V, abd pain. tolerating diet. (+) BM/Flatus. Objective - Vital Signs/Intake and Output Vital Signs (last 24 hours): Temp Pulse Resp BP Pulse Ox 97.5 F L 85 20 99/62 L 95 08/08/18 00:00 08/08/18 00:00 08/08/18 00:00 08/08/18 00:00 08/08/18 00:00 Intake and Output: 08/08/18 08/08/18 06:59 18:59 Intake Total 300 Output Total 500 Balance -200 - Medications Medications: Current Medications Guaifenesin (Mucinex La) 600 mg PO BID [facility] Last Admin: 08/07/18 17:13 Dose: 600 mg Ondansetron HCl (Zofran Inj) 4 mg IVP Q4 PRN PRN Reason: Nausea/Vomiting Pantoprazole Sodium (Protonix Ec Tab) 40 mg PO DAILY [facility] Senna/Docusate Sodium (Senokot S 50 Mg-8.6 Mg) 1 tab PO BID [facility] Last Admin: 08/07/18 17:14 Dose: Not Given Simethicone (Mylicon Chew Tab) 80 mg PO Q6H PRN PRN Reason: GI distress Last Admin: 08/05/18 21:28 Dose: 80 mg Sodium Chloride ([place] Baby Saline 30 Ml) 0 ml GUNNAR Q4H PRN PRN Reason: Nasal congestion Last Admin: 08/05/18 10:06 Dose: 1 spr Tamsulosin HCl (Flomax) 0.4 mg PO DAILY [facility] Last Admin: 08/07/18 09:35 Dose: 0.4 mg Tramadol HCl (Ultram) 50 mg PO TID PRN PRN Reason: Pain, moderate (4-7) Last Admin: 08/06/18 15:03 Dose: 50 mg - Labs Labs: 08/08/18 07:23 08/08/18 07:23 PT 11.7 SECONDS (9.7-12.2) 08/04/18 07:26 INR 1.1 08/04/18 07:26 APTT 34 SECONDS (21-34) 08/03/18 06:54 - Constitutional Appears: Non-toxic, No Acute Distress - Head Exam Head Exam: NORMAL INSPECTION - Eye Exam Eye Exam: Normal appearance - ENT Exam ENT Exam: Mucous Membranes Moist - Respiratory Exam Respiratory Exam: NORMAL BREATHING PATTERN. absent: Accessory Muscle Use, Respiratory Distress - GI/Abdominal Exam GI & Abdominal Exam: Soft. absent: Distended, Tenderness - Exam Additional comments: hernia dressing c/d/i - Neurological Exam Neurological Exam: Alert, Awake, Oriented x3 - Psychiatric Exam Psychiatric exam: Normal Affect, Normal Mood - Skin Skin Exam: Dry, Intact, Normal Color, Warm Assessment and Plan - Assessment and Plan (Free Text) Assessment: 72 y/o M POD#4 s/p Left Inguinal hernia repair with mesh Plan: - Clear for d/c from surgical standpoint - No heavy lifting >10lbs for 4 weeks - PO pain meds PRN - cont stool softener while taking narcotics - f/u w/ Dr Bhat in office in 1 week Manuela Hilton DO PGY3
--- NOTE | 2018-08-08 08:28 | CP.PCM.PN ---
Subjective - Date & Time of Evaluation Date of Evaluation: 08/08/18 Time of Evaluation: 08:00 - Subjective Subjective: Hospitalist Progress Note Patient was seen and examined at 8:00 AM 08/08/18 Upon FULL ROS: Had normal bowel movement 30 minutes before my exam Had breakfast this morning and NO issues with swallowing or abdominal pain or N/V There is some pain at the site of IV in left hand base of thumb: I have spoken to Nurse Leonor to remove Pain in the left inguinal area is NOT constant and will only occur if he moves a particular way and is more of a soreness/sharpness NO chest pain NO palpitations NO lightheadedness/dizziness NO issues with urination: NO burning or pain, NO feeling of incomplete evacuation of bladder, NO difficulty starting urinary stream NO headache NO new changes in vision NO new change in hearing NO numbness and tingling NO other complaints upon RULL ROS Exam: General: AAOX3, NAD HEENT: NCA, EOMI, PERRLA, NO pharyngeal erythema/exudate, NO lymphadenopathy, NO thyromegaly Cardio: NS1 and NS2, NO M/R/G Resp: CTA B/L, NO R/R/W GI: BSx4, ND, NT, Soft, NO guarding/rebound tenderness, Left inguinal surgical site shows NO evidence of wound dehiscence/fluctuation/cellulitis and NO surrounding masses palpated and NO bruising noted Ext: Pulses are strong and equal, Capillary Refill is 2 seconds, NO Edema Neuro: CN II through XII are grossly intact Assessments: 1). Partial SBO Secondary to Left Incarcerated Inguinal Hernia Status: Resolved Will need to follow up with Surgeon Dr. Bhat in 1 week Pain is controlled and does not require narcotic level of management: will discharge on Tylenol 2). Rectal Bleeding Likely Secondary to Hemorrhoid Status: Resolved 3). Hx CAD/MIx2 Status: Chronic NOT on any medications as he is homeless and can't afford Will be discharged on ASA and Lipitor NO Beta Rolando as his blood pressure is on low side of normal 4). Hx HTN Status: Chronic NO medication at this time due to normal low blood pressure 5). Hx HLD Status: Chronic 6). Hx Hypertrophic Prostate Status: Chronic 7). Hx BiPolar Disorder/Depression Status: Chronic Used to be on Paxil up until 6 months ago but could not afford medication any longer Used to be seen by Psychiatrist Dr. Atkinson at [facility] but has not seen for "long time" 8). Hx Asthama Status: Chronic 9). Hx Gastric/Duodenal Ulcer with Perforation Status: Chronic Spoke with Senior Principal Software Engineer Wu on 08/07/18 and she has arranged for transport to [facility] with Bed for this morning 08/08/[address] Xiong who had spoken with PT Matilda: walking cane has been provided I will provide patient with his outpatient medications 3 month supply once the outpatient pharmacy at [facility] opens Patient understands that he will have to arrange through the snf to follow up with our [facility] and with Surgeon Dr. Bhat. The following instructions were explained to patient and a copy will need to be provided to him upon discharge. He understands Burmese but a copy in Ecuadorean will also be provided: 1). Schedule an appointment with the [facility] located on Floor B of [facility] at [address] [place] [address] in [place], [place] by calling [phone] for an appointment to take place in the next 7 days. The doctors at this clinic will be your primary care providers and will help to coordinate your health care and provide you with future prescriptions. 2). Schedule an appointment with Surgeon Dr. Bhat by calling his office [phone]. This appointment should take place in the next 7 days. His office is located at [address] [place] [address] [place] [address]. 3). You will have to arrange for transportation to and from your appointments through the [facility] where you are being taken. 4). You were provided with the following medications. Please take them as instructed. Future prescriptions will need to be obtained through the [facility]: Aspirin 81 mg, 1 tablet by mouth once a day at 8 AM Atorvastatin 10 mg, 1 tablet by mouth once a day at 8 PM Tamsulosin 0.4 mg, 1 tablet by mouth once a day at 8 AM 5). Please do not lift anything heavier than 10 to 15 pounds for now until you are cleared to do so by the [facility]. 6). Please take care and be well. Pro Rios D.O. Objective - Vital Signs/Intake and Output Vital Signs (last 24 hours): Temp Pulse Resp BP Pulse Ox 97.5 F L 85 20 99/62 L 95 08/08/18 00:00 08/08/18 00:00 08/08/18 00:00 08/08/18 00:00 08/08/18 00:00 Intake and Output: 08/08/18 08/08/18 06:59 18:59 Intake Total 300 Output Total 500 Balance -200 - Medications Medications: Current Medications Guaifenesin (Mucinex La) 600 mg PO BID [facility] Last Admin: 08/07/18 17:13 Dose: 600 mg Ondansetron HCl (Zofran Inj) 4 mg IVP Q4 PRN PRN Reason: Nausea/Vomiting Pantoprazole Sodium (Protonix Ec Tab) 40 mg PO DAILY [facility] Senna/Docusate Sodium (Senokot S 50 Mg-8.6 Mg) 1 tab PO BID [facility] Last Admin: 08/07/18 17:14 Dose: Not Given Simethicone (Mylicon Chew Tab) 80 mg PO Q6H PRN PRN Reason: GI distress Last Admin: 08/05/18 21:28 Dose: 80 mg Sodium Chloride ([place] Baby Saline 30 Ml) 0 ml GUNNAR Q4H PRN PRN Reason: Nasal congestion Last Admin: 08/05/18 10:06 Dose: 1 spr Tamsulosin HCl (Flomax) 0.4 mg PO DAILY [facility] Last Admin: 08/07/18 09:35 Dose: 0.4 mg Tramadol HCl (Ultram) 50 mg PO TID PRN PRN Reason: Pain, moderate (4-7) Last Admin: 08/06/18 15:03 Dose: 50 mg - Labs Labs: 08/08/18 07:23 08/08/18 07:23 PT 11.7 SECONDS (9.7-12.2) 08/04/18 07:26 INR 1.1 08/04/18 07:26 APTT 34 SECONDS (21-34) 08/03/18 06:54
[2018-08-08] MEDS: guaiFENesin 600 mg ER Tab PO SCH (09:41)
[2018-08-08] MEDS: Docusate-Senna 50 mg-8.6 mg Tab PO SCH (09:50)
[2018-08-08 09:53] VITALS: BP 110/75; PULSE 78; TEMP 98.7; O2SAT 98
[2018-08-08] MEDS ORDERED: Pantoprazole 40 mg EC Tab PO SCH (10:00)
== END 2018-08-08 11:55 | disposition home or self-care (01) | DRG 228 ==
LOC: C.ER 16:05 → C.3T 22:39
PROVIDERS: ADMIT Hospitalist; ATTEND Family Medicine
PROC: 0DJD8ZZ Inspection of Lower Intestinal Tract, Via Natural or Artificial Opening Endoscopic (ICD-10-PCS; 2018-08-03)
PROC: 0YU60JZ Supplement Left Inguinal Region with Synthetic Substitute, Open Approach (ICD-10-PCS; principal; 2018-08-04 11:30)
DX: K40.30 Unilateral inguinal hernia, with obstruction, without gangrene, not specified as recurrent (principal); K56.7 Ileus, unspecified; N18.6 End stage renal disease; I12.0 Hypertensive chronic kidney disease with stage 5 chronic kidney disease or end stage renal disease; I42.9 Cardiomyopathy, unspecified; E78.5 Hyperlipidemia, unspecified; F31.9 Bipolar disorder, unspecified; I25.10 Atherosclerotic heart disease of native coronary artery without angina pectoris; I25.2 Old myocardial infarction; J45.909 Unspecified asthma, uncomplicated; K21.9 Gastro-esophageal reflux disease without esophagitis; K76.0 Fatty (change of) liver, not elsewhere classified; K91.89 Other postprocedural complications and disorders of digestive system; Z99.2 Dependence on renal dialysis; N40.0 Benign prostatic hyperplasia without lower urinary tract symptoms; Z59.0 Homelessness; Z86.718 Personal history of other venous thrombosis and embolism; Z87.11 Personal history of peptic ulcer disease; K64.0 First degree hemorrhoids

== ENCOUNTER 2018-10-27 06:13 | Emergency (ER) | payer MEDICAID, OTHER ==
[2018-10-27 06:14] VITALS: BMI 25.0
[2018-10-27 06:28] VITALS: TEMP 98.1; O2SAT 98
[2018-10-27 07:57] LABS: BASO # 0.1 K/uL (0.0-0.2); BASO % 0.8 % (0.0-2.0); EOS # 0.5 K/uL (0.0-0.7); EOS % 4.3 % (0.0-4.0); LYMPH % 17.8 % (20.0-40.0); MEAN CORPUSCULAR HEMOGLOBIN 31.4 pg (27.0-31.0); MEAN CORPUSCULAR HGB CONC 35.7 g/dL (33.0-37.0); MEAN PLATELET VOLUME 7.7 fL (7.2-11.7); MONO # 0.9 K/uL (0.0-0.8); MONO % 8.3 % (0.0-10.0); NEUT # 7.6 K/uL (1.8-7.0); NEUT % 68.8 % (50.0-75.0); RBC 4.46 Mil/uL (4.40-5.90); RED CELL DISTRIBUTION WIDTH 12.8 % (11.5-14.5)
[2018-10-27 08:00] LABS: MEAN CELL VOLUME 87.9 fL (80.0-94.0)
--- NOTE | 2018-10-27 08:06 | C.PDOC ---
History Of Present Illness 73 y/o male, w/PMhx [place] presents to the ER complaining of headache, cough, and congestion which has been present for the past 3 days. Patient states that his cough is productive of clear sputum. Patient reports that he has mild chest discomfort on deep inspiration. Denies sick contacts, fever, chills, ear pain, throat pain, CP, SOB, nausea, vomiting, and body aches. Time Seen by Provider: 10/27/18 07:05 Chief Complaint (Nursing): Cough, Cold, Congestion History Per: Patient History/Exam Limitations: no limitations Onset/Duration Of Symptoms: Days Current Symptoms Are (Timing): Still Present Severity: Moderate Past Medical History Reviewed: Historical Data, Nursing Documentation, Vital Signs Vital Signs: Last Vital Signs Temp 98.1 F 10/27/18 06:19 Pulse 97 H 10/27/18 06:19 Resp 20 10/27/18 06:19 BP 109/78 10/27/18 06:19 Pulse Ox 98 10/27/18 06:19 Primary Care Provider: FAMILY PROVIDER,NO - Medical History PMH: Arthritis, Asthma, CAD, Depression, Gastrointestinal Ulcer, Hyperlipidemia Denies: Diabetes, Hepatitis, HIV, HTN, Chronic Kidney Disease, Seizures, Se xually Transmitted Disease Other Surgeries: Hx of surgeries - [facility] INSPECTION OF LOWER INTESTINAL TRACT, ENDO (07/29/18) SUPPLEMENT L INGUINAL REGION WITH SYNTH SUB, OPEN APPROACH (07/29/18) Family History: States: Unknown Family Hx - Social History Hx Tobacco Use: No Hx Alcohol Use: No Hx Substance Use: No - Immunization History Hx Tetanus Toxoid Vaccination: Yes Hx Influenza Vaccination: No Hx Pneumococcal Vaccination: Yes Review Of Systems Except As Marked, All Systems Reviewed And Found Negative. Constitutional: Negative for: Fever, Chills ENT: Negative for: Ear Pain, Throat Pain Cardiovascular: Negative for: Chest Pain Respiratory: Positive for: Cough. Negative for: Shortness of Breath Gastrointestinal: Negative for: Nausea, Vomiting, Abdominal Pain Neurological: Positive for: Headache Physical Exam - Physical Exam Appears: Non-toxic, No Acute Distress Skin: Normal Color, Warm, Dry Head: Atraumatic, Normacephalic Eye(s): bilateral: Normal Inspection Ear(s): Bilateral: Normal Oral Mucosa: Moist Throat: Normal, No Erythema, No Exudate Neck: Supple Lymphatic: No Adenopathy Chest: Symmetrical Cardiovascular: Rhythm Regular, No Friction Rub, No Murmur Respiratory: Normal Breath Sounds, No Rales, No Rhonchi, No Wheezing Gastrointestinal/Abdominal: Normal Exam, Soft, No Tenderness, No Guarding, No Rebound Neurological/Psych: Oriented x3, Normal Speech ED Course And Treatment - Laboratory Results Result Diagrams: 10/27/18 07:50 10/27/18 07:50 O2 Sat by Pulse Oximetry: 98 (RA) Pulse Ox Interpretation: Normal - Other Rad CXR X-Ray: Viewed By Me, Read By Radiologist Interpretation: Date of service: 10/27/2018. HISTORY: cough. COMPARISON: Chest x-ray 07/29/2018. TECHNIQUE: Chest PA and lateral. FINDINGS: LUNGS: No focal consolidation is seen. PLEURA: No pleural effusion is identified. CARDIOVASCULAR: Heart size is within normal limits. No atherosclerotic calcification present. OSSEOUS STRUCTURES: Degenerative changes noted of the spine. hypertrophic degenerative changes noted of the bilateral acromioclavicular joints. VISUALIZED UPPER ABDOMEN: Unremarkable. OTHER FINDINGS: None. IMPRESSION: No acute cardiopulmonary process seen. Medical Decision Making Medical Decision Making: Plan: --Labs --CXR CXR and labs neg. Patient without SOB, speaking in full sentences, sitting comfortably. Discharge home Disposition Counseled Patient/Family Regarding: Studies Performed, Diagnosis - Disposition Disposition: HOME/ ROUTINE Disposition Time: 08:23 Condition: GOOD Instructions: Viral Upper Respiratory Infection, Adult (DC) Forms: [facility] (Nepali) - Clinical Impression Clinical Impression: Viral URI with cough - PA / CAVITY PUMP OPERATOR / Resident Statement MD/DO has reviewed & agrees with the documentation as recorded. - Scribe Statement The provider has reviewed the documentation as recorded by the Edward Flores Provider Attestation All medical record entries made by the Shericeibmello were at my direction and personally dictated by me. I have reviewed the chart and agree that the record accurately reflects my personal performance of the history, physical exam, medical decision making, and the department course for this patient. I have also personally directed, reviewed, and agree with the discharge instructions and disposition.
[2018-10-27 08:13] LABS: ALB/GLOB RATIO 1.6 (1.0-2.1); ALBUMIN 4.2 g/dL (3.5-5.0); ALT/SGPT 11 U/L (21-72); AST/SGOT 22 U/L (17-59); BLOOD UREA NITROGEN 11 mg/dL (9-20); CALCIUM 8.4 mg/dl (8.6-10.4); GFR NON-AFRICAN AMERICAN > 60
[2018-10-27 08:48] VITALS: BP 100/69; PULSE 80; RESP 18
--- NOTE | 2018-10-27 09:56 | RAD ---
Date of service: 10/27/2018 HISTORY: cough COMPARISON: Chest x-ray 07/29/2018 TECHNIQUE: Chest PA and lateral FINDINGS: LUNGS: No focal consolidation is seen. PLEURA: No pleural effusion is identified. CARDIOVASCULAR: Heart size is within normal limits. No atherosclerotic calcification present. OSSEOUS STRUCTURES: Degenerative changes noted of the spine. hypertrophic degenerative changes noted of the bilateral acromioclavicular joints. VISUALIZED UPPER ABDOMEN: Unremarkable. OTHER FINDINGS: None. IMPRESSION: No acute cardiopulmonary process seen.
== END 2018-10-27 08:40 | disposition home or self-care (01) ==
LOC: C.ER 06:13
DX: J06.9 Acute upper respiratory infection, unspecified (principal); R05 Cough; E78.5 Hyperlipidemia, unspecified; I25.10 Atherosclerotic heart disease of native coronary artery without angina pectoris; I25.2 Old myocardial infarction